=== PATIENT | female | born 1965 | race Hispanic/Latino ===

== ENCOUNTER 2017-08-08 09:24 | Emergency (ER) | payer SELFPAY ==
--- NOTE | 2017-08-08 11:16 | EDPHYS ---
Physician Documentation [facility] Name: Joanna Benavidez Age: 52 yrs Sex: Female : 1965 Arrival Date: 08/08/2017 Time: 09:27 Bed 23 Private MD: ED Physician Jas Marcelo HPI: 08/08 11:12 This 52 yrs old Female presents to ER via Ambulatory with complaints of gs Vaginal Bleeding. 11:12 The patient presents with vaginal bleeding that is moderate, with clots. Onset: The gs symptoms/episode began/occurred yesterday, AFTER SEXUAL ACTIVITY. Modifying factors: The symptoms are alleviated by nothing, the symptoms are aggravated by nothing. Associated signs and symptoms: Pertinent negatives: diarrhea, dyspareunia, dysuria. Severity of symptoms: At their worst the symptoms were moderate, in the emergency department the symptoms are unchanged. The patient has not experienced similar symptoms in the past. 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 ROS: 11:12 All other systems are negative. gs Exam: 11:12 Head/Face: Normocephalic, atraumatic. Eyes: Pupils equal round and reactive to light, gs extra-ocular motions intact. Lids and lashes normal. Conjunctiva and sclera are non-icteric and not injected. Cornea within normal limits. Periorbital areas with no swelling, redness, or edema. ENT: Nares patent. No nasal discharge, no septal abnormalities noted. Tympanic membranes are normal and external auditory canals are clear. Oropharynx with no redness, swelling, or masses, exudates, or evidence of obstruction, uvula midline. Mucous membranes moist. Neck: Trachea midline, no thyromegaly or masses palpated, and no cervical lymphadenopathy. Supple, full range of motion without nuchal rigidity, or vertebral point tenderness. No Meningismus. Chest/axilla: Normal chest wall appearance and motion. Nontender with no deformity. No lesions are appreciated. Cardiovascular: Regular rate and rhythm with a normal S1 and S2. No gallops, murmurs, or rubs. Normal PMI, no JVD. No pulse deficits. Respiratory: Lungs have equal breath sounds bilaterally, clear to auscultation and percussion. No rales, rhonchi or wheezes noted. No increased work of breathing, no retractions or nasal flaring. Abdomen/GI: Soft, non-tender, with normal bowel sounds. No distension or tympany. No guarding or rebound. No evidence of tenderness throughout. Back: No spinal tenderness. No costovertebral tenderness. Full range of motion. Skin: Warm, dry with normal turgor. Normal color with no rashes, no lesions, and no evidence of cellulitis. MS/ Extremity: Pulses equal, no cyanosis. Neurovascular intact. Full, normal range of motion. Neuro: Awake and alert, GCS 15, oriented to person, place, time, and situation. Cranial nerves II-XII grossly intact. Motor strength 5/5 in all extremities. Sensory grossly intact. Cerebellar exam normal. Normal gait. 11:12 Constitutional: The patient appears alert, awake. 11:12 : Pelvic Exam: External exam: is normal, Speculum exam: mild bleeding, FROM CERVIX, CLEANED ALL BLOOD NO LACERATION EVIDENCE OF TRAUMA, BLEEDING ONLY FROM OS. Vital Signs: 09:38 BP 108 / 72; Pulse 79; Resp 18; Temp 98.6(TE); Pulse Ox 99% on R/A; Weight 63.5 kg; hj Height 5 ft. 3 in. (160.02 cm); Pain 3/10; 11:56 BP 112 / 65; Pulse 68; Resp 18; Pulse Ox 99% ; aj1 09:38 Body Mass Index 24.80 (63.50 kg, 160.02 cm) MDM: 10:12 Patient medically screened. 11:12 Differential diagnosis: dysfunctional uterine bleeding, dysmenorrhea, Neoplasm. Data gs reviewed: vital signs, nurses notes. Response to treatment: the patient's symptoms have markedly improved after treatment, and as a result, I will discharge patient. 08/08 10:01 Order name: CBC w/o diff; Complete Time: 11:35 gs Administered Medications: No medications were administered Disposition: 08/08/17 11:16 Discharged to Home. Impression: Other abnormal uterine and vaginal bleeding. - Condition is Stable. - Discharge Instructions: Uterine Bleeding, Dysfunctional. - Work release form, Medication Reconciliation Form, Thank You Letter, Antibiotic Education, Prescription Opioid Use form. - Follow up: Brenda Leija MD; When: 2 - 3 days; Reason: Re-evaluation by your physician. Signatures: Dispatcher [employer] EDLennie Ortega RN RN aj1 Kelly Santiago RN RN iw Max Catherine RN RN Jas Marcelo MD MD Corrections: (The following items were deleted from the chart) 12:01 11:16 08/08/2017 11:16 Discharged to Home. Impression: Other abnormal uterine and aj1 vaginal bleeding. Condition is Stable. Forms are Medication Reconciliation Form, Thank You Letter, Antibiotic Education, Prescription Opioid Use. Follow up: Brenda Leija; When: 2 - 3 days; Reason: Re-evaluation by your physician. gs 12:19 12:01 08/08/2017 11:16 Discharged to Home. Impression: Other abnormal uterine and aj1 vaginal bleeding. Condition is Stable. Discharge Instructions: Uterine Bleeding, Dysfunctional. Forms are Medication Reconciliation Form, Thank You Letter, Antibiotic Education, Prescription Opioid Use, Work release form. Follow up: Brenda Leija; When: 2 - 3 days; Reason: Re-evaluation by your physician. aj1 12:22 12:19 08/08/2017 11:16 Discharged to Home. Impression: Other abnormal uterine and iw vaginal bleeding. Condition is Stable. Discharge Instructions: Uterine Bleeding, Dysfunctional. Forms are Medication Reconciliation Form, Thank You Letter, Antibiotic Education, Prescription Opioid Use, Work release form. Follow up: Brenda Leija; When: 2 - 3 days; Reason: Re-evaluation by your physician. aj1
--- NOTE | 2017-08-08 11:16 | ER ---
Nurse's Notes [facility] Name: Joanna Benavidez Age: 52 yrs Sex: Female : 1965 Arrival Date: 08/08/2017 Time: 09:27 Bed 23 Private MD: Diagnosis: Other abnormal uterine and vaginal bleeding Presentation: 08/08 09:34 Presenting complaint: Patient states: i ve been bleeding from my vagina since this hj morning; fresh blood in large amount; pads was soaked; denies fever and chills; reports abd discomfort;. Transition of care: patient was not received from another setting of care. Onset of symptoms was August 08, 2017. Initial Sepsis Screen: Does the patient meet any 2 criteria? No. Patient's initial sepsis screen is negative. Does the patient have a suspected source of infection? No. Patient's initial sepsis screen is negative. Care prior to arrival: None. 09:34 Method Of Arrival: Ambulatory 09:34 Acuity: FLORENTINO 3 hj Triage Assessment: 09:37 General: Appears in no apparent distress. uncomfortable, Behavior is calm, cooperative, hj appropriate for age. Pain: Complains of pain in pelvis Pain currently is 3 out of 10 on a pain scale. : Reports vaginal bleeding that is bright red, heavy flow since this AM;. 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 Screenin:00 Abuse screen: Denies threats or abuse. Denies injuries from another. Nutritional aj1 screening: No deficits noted. Tuberculosis screening: No symptoms or risk factors identified. Assessment: 09:38 : hj 10:00 General: Appears in no apparent distress. uncomfortable, Behavior is calm, cooperative, aj1 appropriate for age. Pain: Complains of pain in left inguinal area Pain does not radiate. Pain currently is 3 out of 10 on a pain scale. Neuro: Level of Consciousness is awake, alert, obeys commands, Oriented to person, place, time, situation, Speech is normal, Facial symmetry appears normal. Cardiovascular: Patient's skin is warm and dry. Respiratory: Airway is patent Respiratory effort is even, unlabored, Respiratory pattern is regular, symmetrical. GI: No signs and/or symptoms were reported involving the gastrointestinal system. : Reports vaginal bleeding that is bright red, heavy flow since last night. EENT: No signs and/or symptoms were reported regarding the EENT system. Derm: No signs and/or symptoms reported regarding the dermatologic system. Skin is pink, warm \T\ dry. normal. Musculoskeletal: No signs and/or symptoms reported regarding the musculoskeletal system. Circulation, motion, and sensation intact. 11:00 Reassessment: Patient appears in no apparent distress at this time. No changes from aj1 previously documented assessment. Patient and/or family updated on plan of care and expected duration. Pain level reassessed. Patient is alert, oriented x 3, equal unlabored respirations, skin warm/dry/pink. 11:56 Reassessment: Patient appears in no apparent distress at this time. No changes from aj1 previously documented assessment. Patient and/or family updated on plan of care and expected duration. Pain level reassessed. Patient is alert, oriented x 3, equal unlabored respirations, skin warm/dry/pink. Vital Signs: 09:38 BP 108 / 72; Pulse 79; Resp 18; Temp 98.6(TE); Pulse Ox 99% on R/A; Weight 63.5 kg; hj Height 5 ft. 3 in. (160.02 cm); Pain 3/10; 11:56 BP 112 / 65; Pulse 68; Resp 18; Pulse Ox 99% ; aj1 09:38 Body Mass Index 24.80 (63.50 kg, 160.02 cm) ED Course: 09:27 Patient arrived in ED. rg4 09:36 Triage completed. hj 09:37 Arm band placed on right wrist. hj 09:50 Lennie Pizarro, RN is Primary Nurse. aj1 10:00 Jas Marcelo MD is Attending Physician. gs 10:00 Patient has correct armband on for positive identification. Bed in low position. Call aj1 light in reach. Side rails up X 1. Pulse ox on. NIBP on. 10:00 No provider procedures requiring assistance completed. aj1 11:14 Assist provider with pelvic exam: Set up pelvic tray. Performed by Jas Marcelo MD aj1 Patient tolerated well. 11:14 Inserted saline lock: 20 gauge in right forearm, using aseptic technique. Blood aj1 collected. 11:16 Brenda Leija MD is Referral Physician. gs 11:56 IV discontinued, intact, bleeding controlled, No redness/swelling at site. Pressure aj1 dressing applied. Administered Medications: No medications were administered Outcome: 11:16 Discharge ordered by . gs 12:00 Discharged to home ambulatory. aj1 12:00 Condition: good 12:00 Discharge instructions given to patient, Instructed on discharge instructions, follow up and referral plans. Demonstrated understanding of instructions, follow-up care. 12:01 Patient left the ED. aj1 12:19 Patient left the ED. aj1 12:22 Patient left the ED. iw Signatures: Lennie Pizarro RN RN aj1 Kelly Santiago RN RN iw Max Catherine RN Yelena Horta rg4 Jas Marcelo MD MD Corrections: (The following items were deleted from the chart) 09:40 09:38 Pulse 79bpm; Resp 18bpm; Pulse Ox 99% RA; Temp 98.6F Temporal; 63.5 kg; Height 5 hj ft. 3 in.; BMI: 24.8; Pain 3/10; hj
[2017-08-08 11:24] LABS: MCH 30.1 pg (27.0-35.0); MCV 90.1 fL (80-100); MPV 8.6 fL (7.6-11.3); RBC Red Blood Cell Count 4.99 M/uL (3.86-4.86)
== END 2017-08-08 12:22 | disposition home or self-care (01) ==
LOC: ER 09:24
DX: N93.8 Other specified abnormal uterine and vaginal bleeding (principal); Z88.6 Allergy status to analgesic agent; Z88.8 Allergy status to other drugs, medicaments and biological substances
CPT/HCPCS: 36415; 85027; 99284

== ENCOUNTER 2017-08-08 20:16 | Emergency (ER) | payer SELFPAY ==
[2017-08-08 21:03] LABS: Hematocrit 43.5 % (36.0-45.0); MCH 30.7 pg (27.0-35.0); MCV 89.4 fL (80-100); MPV 8.4 fL (7.6-11.3); RBC Red Blood Cell Count 4.87 M/uL (3.86-4.86)
[2017-08-08 21:29] LABS: Urine Blood 3+ (NEG); Urine Glucose NEGATIVE (NEG); Urine Protein 2+ (NEG); Urine Specific Gravity 1.025 (1.005-1.030)
--- NOTE | 2017-08-08 23:14 | EDPHYS ---
Physician Documentation [facility] Name: Joanna Benavidez Age: 52 yrs Sex: Female : 1965 Arrival Date: 08/08/2017 Time: 20:21 Bed 4 Private MD: ED Physician Lazaro Watkins HPI: 08/08 20:37 This 52 yrs old Female presents to ER via Wheelchair with complaints of pkl Vaginal Bleeding. 20:37 Onset: The symptoms/episode began/occurred today. The patient has been recently seen at [facility] the [facility] Emergency Department, today, for similar complaints Was told to return if bleeding continue.. Historical: - Allergies: 20:25 Ibuprofen; bp 20:25 Vioxx; bp - Home Meds: 20:25 None [Active]; bp - PMHx: 20:25 None; bp - Immunization history:: Adult Immunizations up to date. - Social history:: Smoking status: Patient uses tobacco products, unknown amount. ROS: 20:37 Positive for vaginal bleeding. pkl 20:37 Eyes: Negative for injury, pain, redness, and discharge, ENT: Negative for injury, pain, and discharge, Neck: Negative for injury, pain, and swelling, Cardiovascular: Negative for chest pain, palpitations, and edema, Respiratory: Negative for shortness of breath, cough, wheezing, and pleuritic chest pain, Abdomen/GI: Negative for abdominal pain, nausea, vomiting, diarrhea, and constipation, Back: Negative for injury and pain. 20:37 MS/extremity: Negative for acute changes. 20:37 Skin: Negative for rash. 20:37 Neuro: Negative for altered mental status. Exam: 21:49 Head/Face: Normocephalic, atraumatic. Eyes: Pupils equal round and reactive to light, pkl extra-ocular motions intact. Lids and lashes normal. Conjunctiva and sclera are non-icteric and not injected. Cornea within normal limits. Periorbital areas with no swelling, redness, or edema. ENT: Nares patent. No nasal discharge, no septal abnormalities noted. Tympanic membranes are normal and external auditory canals are clear. Oropharynx with no redness, swelling, or masses, exudates, or evidence of obstruction, uvula midline. Mucous membranes moist. Neck: Trachea midline, no thyromegaly or masses palpated, and no cervical lymphadenopathy. Supple, full range of motion without nuchal rigidity, or vertebral point tenderness. No Meningismus. Chest/axilla: Normal chest wall appearance and motion. Nontender with no deformity. No lesions are appreciated. Cardiovascular: Regular rate and rhythm with a normal S1 and S2. No gallops, murmurs, or rubs. Normal PMI, no JVD. No pulse deficits. Respiratory: Lungs have equal breath sounds bilaterally, clear to auscultation and percussion. No rales, rhonchi or wheezes noted. No increased work of breathing, no retractions or nasal flaring. Abdomen/GI: Soft, non-tender, with normal bowel sounds. No distension or tympany. No guarding or rebound. No evidence of tenderness throughout. Back: No spinal tenderness. No costovertebral tenderness. Full range of motion. 21:49 : Pelvic Exam: bimanual exam reveals Mild vaginal bleeding. 21:49 Skin: Exam negative for rash. 21:49 Neuro: Orientation: is normal, Mentation: is normal, Cranial nerves: grossly normal, Motor: is normal. Vital Signs: 20:25 BP 109 / 61; Pulse 89; Resp 14; Temp 97.8; Pulse Ox 100% ; Weight 63.5 kg; Height 5 ft. bp 3 in. (160.02 cm); 21:30 BP 94 / 68; Pulse 84; Resp 18; Pulse Ox 97% on R/A; Pain 0/10; mg2 22:38 BP 95 / 59; Pulse 78; Resp 18; Pulse Ox 100% on R/A; Pain 0/10; mg2 23:21 BP 101 / 60; Pulse 72; Resp 16; Pulse Ox 100% on R/A; Pain 0/10; aa1 20:25 Body Mass Index 24.80 (63.50 kg, 160.02 cm) bp MDM: 20:22 Patient medically screened. pkl 23:12 Data reviewed: vital signs, nurses notes, lab test result(s), radiologic studies, pkl ultrasound. 08/08 20:37 Order name: CBC w/o diff; Complete Time: 21:37 pkl 08/08 21:06 Order name: Urine Dipstick--Ancillary (enter results); Complete Time: 21:29 rg2 08/08 21:06 Order name: Urine --Ancillary (enter results); Complete Time: 21:29 rg2 08/08 22:31 Order name: Transvaginal Study Probe EDMS Administered Medications: No medications were administered Disposition: 08/08/17 23:13 Discharged to Home. Impression: Vaginal bleeding. Uterine fibroid. Left ovarian cyst. - Condition is Stable. - Medication Reconciliation Form, Thank You Letter, Antibiotic Education, Prescription Opioid Use form. - Follow up: Private Physician; When: 2 - 3 days; Reason: Re-evaluation by your physician. - Problem is new. - Symptoms have improved. Signatures: Dispatcher [employer] EDCT Jessica Benton RN RN aa1 Lazaro Watkins MD MD pkl Jose D Espinoza RN RN bp Corrections: (The following items were deleted from the chart) 22:31 20:37 Pelvis Complete+US.RAD.TORIBIOZ ordered. EDCT EDMS 23:25 23:13 08/08/2017 23:13 Discharged to Home. Impression: Vaginal bleeding. Uterine aa1 fibroid. Left ovarian cyst. Condition is Stable. Forms are Medication Reconciliation Form, Thank You Letter, Antibiotic Education, Prescription Opioid Use. Follow up: Private Physician; When: 2 - 3 days; Reason: Re-evaluation by your physician. Problem is new. Symptoms have improved. pkl
--- NOTE | 2017-08-08 23:14 | ER ---
Nurse's Notes [facility] Name: Joanna Benavidez Age: 52 yrs Sex: Female : 1965 Arrival Date: 08/08/2017 Time: 20:21 Bed 4 Private MD: Diagnosis: Vaginal bleeding. Uterine fibroid. Left ovarian cyst Presentation: 08/08 20:24 Presenting complaint: Friend states: SHE WAS HERE EARLIER AND THEY TOLD HER TO COME bp BACK IF THE BLEEDING DIDN'T STOP. Transition of care: patient was not received from another setting of care. Onset of symptoms was August 07, 2017. Initial Sepsis Screen: Does the patient meet any 2 criteria? No. Patient's initial sepsis screen is negative. Does the patient have a suspected source of infection? No. Patient's initial sepsis screen is negative. Care prior to arrival: None. 20:24 Method Of Arrival: Wheelchair bp 20:24 Acuity: FLORENTINO 3 bp Triage Assessment: 20:25 General: Appears distressed, comfortable, Behavior is calm, cooperative, appropriate bp for age. Pain: Denies pain. : Reports vaginal bleeding that is with clots, heavy flow. Historical: - Allergies: 20:25 Ibuprofen; bp 20:25 Vioxx; bp - Home Meds: 20:25 None [Active]; bp - PMHx: 20:25 None; bp - Immunization history:: Adult Immunizations up to date. - Social history:: Smoking status: Patient uses tobacco products, unknown amount. Screenin:33 Abuse screen: Denies threats or abuse. Denies injuries from another. Nutritional mg2 screening: No deficits noted. Tuberculosis screening: No symptoms or risk factors identified. Fall Risk None identified. Assessment: 20:32 General: Appears in no apparent distress. comfortable. Pain: Denies pain. Neuro: Level mg2 of Consciousness is awake, alert, obeys commands, Oriented to person, place, time, situation. Cardiovascular: Capillary refill < 3 seconds Patient's skin is warm and dry. Respiratory: Airway is patent Respiratory effort is even, unlabored, Respiratory pattern is regular, symmetrical. GI: No signs and/or symptoms were reported involving the gastrointestinal system. : Reports vaginal bleeding that is with clots, since today but had it 10 days ago. EENT: No signs and/or symptoms were reported regarding the EENT system. Derm: Skin is intact, Skin is pink, warm \T\ dry. normal. Musculoskeletal: No signs and/or symptoms reported regarding the musculoskeletal system. Circulation, motion, and sensation intact. 21:30 Reassessment: Patient appears in no apparent distress at this time. Patient and/or aa1 family updated on plan of care and expected duration. Pain level reassessed. Patient is alert, oriented x 3, equal unlabored respirations, skin warm/dry/pink. Pt awaiting u/s. 22:30 Reassessment: Patient appears in no apparent distress at this time. Patient and/or aa1 family updated on plan of care and expected duration. Pain level reassessed. Patient is alert, oriented x 3, equal unlabored respirations, skin warm/dry/pink. Pt awaiting u/s results. 23:21 Reassessment: Patient appears in no apparent distress at this time. Patient is alert, aa1 oriented x 3, equal unlabored respirations, skin warm/dry/pink. Discussed d/c \T\ f/u instructions with pt \T\ family. Gave information to f/u with [facility] gynecology clinic. Patient denies pain at this time. Patient states feeling better. Vital Signs: 20:25 BP 109 / 61; Pulse 89; Resp 14; Temp 97.8; Pulse Ox 100% ; Weight 63.5 kg; Height 5 ft. bp 3 in. (160.02 cm); 21:30 BP 94 / 68; Pulse 84; Resp 18; Pulse Ox 97% on R/A; Pain 0/10; mg2 22:38 BP 95 / 59; Pulse 78; Resp 18; Pulse Ox 100% on R/A; Pain 0/10; mg2 23:21 BP 101 / 60; Pulse 72; Resp 16; Pulse Ox 100% on R/A; Pain 0/10; aa1 20:25 Body Mass Index 24.80 (63.50 kg, 160.02 cm) bp ED Course: 20:21 Patient arrived in ED. am2 20:22 Lazaro Barfield MD is Attending Physician. pkl 20:24 Triage completed. bp 20:25 Arm band placed on. bp 20:31 Taqueria Amador, TATUM is Primary Nurse. mg2 20:33 Patient has correct armband on for positive identification. Placed in gown. Bed in low mg2 position. Call light in reach. Side rails up X2. Noise minimized. Warm blanket given. 20:47 Urine collected: clean catch specimen, arron blood. aa1 20:51 Inserted saline lock: 20 gauge in left antecubital area, using aseptic technique. Blood mg2 collected. 21:25 Assist provider with pelvic exam: Set up pelvic tray. Performed by Lazaro Barfield MD Patient aa1 tolerated well. vaginal exam done by dr barfield. 22:31 Transvaginal Study Probe In Process Unspecified. EDMS 23:21 IV discontinued, intact, bleeding controlled, No redness/swelling at site. Pressure aa1 dressing applied. Administered Medications: No medications were administered Outcome: 23:13 Discharge ordered by . pkl 23:25 Discharged to home ambulatory, with family. aa1 23:25 Condition: good 23:25 Discharge instructions given to patient, family, Instructed on discharge instructions, follow up and referral plans. medication usage, Demonstrated understanding of instructions, follow-up care, medications, Prescriptions given X 1. 23:25 Patient left the ED. aa1 Signatures: Dispatcher [employer] EDMS Jessica Benton, RN RN aa1 Lazaro Barfield MD MD pkl Amira Esquivel am2 Jose D Espinoza, RN RN bp Taqueria Amador RN RN mg2 Corrections: (The following items were deleted from the chart) 20:34 20:31 Jessica Benton, TATUM is Primary Nurse. aa1 mg2 20:34 20:31 Primary Nurse role handed off by Jessica Benton RN mg2 mg2 21:34 21:30 BP 90 / 52; Pulse 84bpm; Resp 18bpm; Pulse Ox 97% RA; Pain 0/10; mg2 mg2 23:24 21:25 vaginal exam done by dr barfield mg2 aa1
--- NOTE | 2017-08-09 07:49 | RAD REPORT ---
EXAM DESCRIPTION: US - Transvaginal Study Probe - 08/08/2017 10:31 pm CLINICAL HISTORY: Vaginal bleeding and abdominal pain COMPARISON: none FINDINGS: The uterus measures 8 x 5 x 6cm. A fibroid is suspected within the myometrium of the uteru s fundus measuring 2 centimeters. A 3 centimeter left ovarian cyst is present. Flow within the left ovary is seen. The right ovary is n ormal in size and echotexture. No significant free fluid is seen. IMPRESSION: 3 centimeter left ovarian cyst 2 centimeter uterine fibroid Followup pelvic ultrasound in several months is recommended to assess stability/ resolution of the ov roslyn cyst
== END 2017-08-08 23:25 | disposition home or self-care (01) ==
LOC: ER 20:16
DX: D25.9 Leiomyoma of uterus, unspecified (principal); N83.202 Unspecified ovarian cyst, left side; Z72.0 Tobacco use; Z88.6 Allergy status to analgesic agent; Z88.8 Allergy status to other drugs, medicaments and biological substances
CPT/HCPCS: 36415; 76830; 81003; 81025; 85027; 99284

== ENCOUNTER 2017-11-20 09:13 | Day surgery (SDC) | payer SELFPAY ==
[2017-11-20] MEDS ORDERED: MORPHINE 4 MG/ML SYR ONE ×2 (11:48→13:22)
[2017-11-20] MEDS ORDERED: ONDANSETRON 4 MG/2 ML VIAL ONE ×3 (11:48→16:21)
[2017-11-20 11:57] LABS: Absolute Lymphocytes (CBC) 1.9 K/uL (0.7-4.9); Absolute Monocytes 0.8 K/uL (0.1-1.3); Absolute Neutrophil 10.9 K/uL (1.8-8.0); Basophils % 0.4 % (0-1.3); Eosinophils % 1.2 % (0-4.4); Hematocrit 42.5 % (36.0-45.0); Lymphocytes % 13.8 % (15.3-44.8); MCV 84.4 fL (80-100); MPV 8.4 fL (7.6-11.3); Monocytes % 5.6 % (3.3-12.3); RBC Red Blood Cell Count 5.04 M/uL (3.86-4.86)
[2017-11-20 12:07] LABS: Urine Amorphous Sediment 2+ /HPF (NONE SEEN); Urine Bacteria <20 /HPF (<20); Urine Culture Reflex Order NOT NEEDED; Urine Mucus 2+ /HPF (NONE SEEN); Urine RBC <5 /HPF (NONE SEEN)
[2017-11-20 12:08] LABS: Urine Blood NEGATIVE (NEG); Urine Glucose NEGATIVE (NEG); Urine Protein NEGATIVE (NEG); Urine Specific Gravity 1.025 (1.005-1.030)
[2017-11-20 12:28] LABS: ALT/SGPT 17 U/L (12-78); AST/SGOT 15 U/L (15-37); Albumin 3.4 g/dL (3.4-5.0); Alkaline Phosphatase 112 U/L (45-117); Amylase Level 58 U/L (25-115); BUN Blood Urea Nitrogen 15 mg/dL (7-18); Bicarbonate 28 mmol/L (21-32); Bilirubin Direct 0.1 mg/dL (0-0.2); Bilirubin Total 0.5 mg/dL (0.2-1.0); Glucose Level 93 mg/dL (74-106); Lipase 174 U/L (73-393); Potassium 3.7 mmol/L (3.5-5.1); Protein, Total 7.3 g/dL (6.4-8.2); Sodium Level 140 mmol/L (136-145)
--- NOTE | 2017-11-20 13:15 | RAD REPORT ---
EXAM DESCRIPTION: CTAbdomen Pelvis W Contrast - 11/20/2017 12:54 pm CLINICAL HISTORY: Abdominal pain. RLQ pain;Abd pain COMPARISON: No comparisons TECHNIQUE: Biphasic CT imaging of the abdomen and pelvis was performed with 100 ml non-ionic IV cont rast. All CT scans are performed using dose optimization technique as appropriate and may include automated exposure control or mA/KV adjustment according to patient size. FINDINGS: The lung bases are clear. The liver, spleen, pancreas, adrenal glands and kidneys are within normal limits. Small renal cortica l cysts are present. No bowel obstruction, free air, free fluid or abscess. The appendix is dilated to 17 mm compatible w ith acute appendicitis. No evidence of significant lymphadenopathy. No suspicious bony findings. IMPRESSION: Acute appendicitis.
--- NOTE | 2017-11-20 13:50 | ER ---
Nurse's Notes [facility] Name: Joanna Benavidez Age: 52 yrs Sex: Female : 1965 Arrival Date: 11/20/2017 Time: 09:16 Bed 14 Private MD: None, None Diagnosis: Acute appendicitis Presentation: 11/20 09:23 Presenting complaint: Patient states: around 0530 I got pain low in my pelvis. when I ch was last here I was dx with uterine fibroids and ovarian cysts. I have not followed up with a pcp. It hurts so badly that I want to puke. Transition of care: patient was not received from another setting of care. Onset of symptoms was November 20, 2017 at 05:30. Risk Assessment: Do you want to hurt yourself or someone else? Patient reports no desire to harm self or others. Initial Sepsis Screen: Does the patient meet any 2 criteria? No. Patient's initial sepsis screen is negative. Does the patient have a suspected source of infection? No. Patient's initial sepsis screen is negative. Care prior to arrival: None. 09:23 Method Of Arrival: Ambulatory 09:23 Acuity: FLORENTINO 3 Triage Assessment: 09:25 General: Appears in no apparent distress. uncomfortable, Behavior is calm, cooperative, ch appropriate for age. Pain: Complains of pain in suprapubic area and pelvis Pain currently is 8 out of 10 on a pain scale. GI: Reports lower abdominal pain. 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 - Social history:: Smoking status: Patient uses tobacco products, smokes one-half pack cigarettes per day, Patient/guardian denies using alcohol, street drugs. - Ebola Screening: : Patient negative for fever greater than or equal to 101.5 degrees Fahrenheit, and additional compatible Ebola Virus Disease symptoms Patient denies exposure to infectious person Patient denies travel to an Ebola-affected area in the 21 days before illness onset No symptoms or risks identified at this time. Screenin:49 Abuse screen: Denies threats or abuse. Denies injuries from another. Nutritional hb screening: No deficits noted. Tuberculosis screening: No symptoms or risk factors identified. Fall Risk None identified. Assessment: 10:30 General: Appears in no apparent distress. uncomfortable, Behavior is calm, cooperative. hb Pain: Pain currently is 8 out of 10 on a pain scale. Neuro: Level of Consciousness is awake, alert, obeys commands, Oriented to person, place, time, situation. Cardiovascular: Heart tones S1 S2 present Capillary refill < 3 seconds Patient's skin is warm and dry. Respiratory: Airway is patent Trachea midline Respiratory effort is even, unlabored, Respiratory pattern is regular, symmetrical, Breath sounds are clear bilaterally. GI: Abdomen is flat, Bowel sounds present X 4 quads. Abd is soft and non tender X 4 quads. Reports lower abdominal pain, upper abdominal pain. : No signs and/or symptoms were reported regarding the genitourinary system. EENT: No signs and/or symptoms were reported regarding the EENT system. Derm: No signs and/or symptoms reported regarding the dermatologic system. Skin is intact, is healthy with good turgor. Musculoskeletal: No signs and/or symptoms reported regarding the musculoskeletal system. 11:30 Reassessment: Patient appears in no apparent distress at this time. No changes from previously documented assessment. Patient and/or family updated on plan of care and expected duration. Pain level reassessed. Patient is alert, oriented x 3, equal unlabored respirations, skin warm/dry/pink. 12:16 Reassessment: Patient appears in no apparent distress at this time. Patient and/or hb family updated on plan of care and expected duration. Pain level reassessed. Patient is alert, oriented x 3, equal unlabored respirations, skin warm/dry/pink. 12:44 Reassessment: Pt transported to CT with tech. 13:02 Reassessment: Pt returned from CT via wheelchair with tech. 13:15 Reassessment: Patient appears in no apparent distress at this time. Patient and/or hb family updated on plan of care and expected duration. Pain level reassessed. Patient is alert, oriented x 3, equal unlabored respirations, skin warm/dry/pink. 14:00 Reassessment: Patient appears in no apparent distress at this time. Patient and/or hb family updated on plan of care and expected duration. Pain level reassessed. Patient is alert, oriented x 3, equal unlabored respirations, skin warm/dry/pink. 14:05 Reassessment: Dr. Stahl at bedside. hb Vital Signs: 09:25 BP 120 / 47; Pulse 68; Resp 15; Temp 98.3; Pulse Ox 100% on R/A; Weight 63.5 kg; Height ch 5 ft. 3 in. (160.02 cm); Pain 8/10; 10:30 BP 122 / 65; Pulse 60; Resp 15; Pulse Ox 100% on R/A; hb 11:30 BP 126 / 78; Pulse 70; Resp 15; Pulse Ox 100% on R/A; hb 12:00 BP 120 / 66; Pulse 52; Resp 15; Pulse Ox 97% on R/A; Pain 5/10; cc3 13:00 BP 118 / 68; Pulse 55; Resp 15; Pulse Ox 100% on R/A; hb 14:00 BP 112 / 57; Pulse 52; Resp 15; Temp 98.2; Pulse Ox 100% on R/A; Pain 8/10; hb 09:25 Body Mass Index 24.80 (63.50 kg, 160.02 cm) ED Course: 09:16 Patient arrived in ED. sb2 09:16 None, None is Private Physician. sb2 09:24 Triage completed. ch 09:25 Arm band placed on left wrist. Patient placed in an exam room, on a stretcher. ch 09:55 Tamara Mae RN is Primary Nurse. hb 10:00 Loc Medrano MD is Attending Physician. kdr 11:49 Patient has correct armband on for positive identification. Placed in gown. Bed in low hb position. Call light in reach. Side rails up X 1. 11:49 Inserted saline lock: 20 gauge in right antecubital area, using aseptic technique. hb ,using aseptic technique. by Lucia WINN Blood collected. 12:[address] via wheelchair. sj 12:50 CT completed. Patient tolerated procedure well. Patient moved back from CT. sj 12:55 CT Abd/Pelvis - W/Contrast In Process Unspecified. EDMS 13:49 Jon Stahl MD is Hospitalizing Provider. kdr 14:05 Surgical consent explained by physician. hb 14:38 No provider procedures requiring assistance completed. Patient admitted, IV remains in hb place. Administered Medications: 11:47 Drug: morphine 4 mg Route: IVP; Site: right antecubital; hb 12:00 Follow up: Response: No adverse reaction cc3 11:47 Drug: Zofran 4 mg Route: IVP; Site: right antecubital; hb 12:00 Follow up: Response: No adverse reaction cc3 13:20 Drug: Zofran 4 mg Route: IVP; Site: right antecubital; cc3 14:00 Follow up: Response: No adverse reaction cc3 13:25 Drug: morphine 4 mg Route: IVP; Site: right antecubital; cc3 14:00 Follow up: Response: No adverse reaction cc3 14:00 Drug: Flagyl 500 mg Volume: 100 ml; Route: IVPB; Rate: 200 ml/hr; Infused Over: 30 ss mins; Site: right antecubital; 14:00 Drug: LevaQUIN 500 mg Volume: 100 ml; Route: IVPB; Infused Over: 60 mins; Site: left ss antecubital; Outcome: 13:49 Decision to Hospitalize by Provider. kdr 14:38 Admitted to OR accompanied by nurse, family with patient, via stretcher, with chart. hb 14:38 Condition: stable 14:38 Instructed on the need for admit, Demonstrated understanding of instructions. 14:39 Patient left the ED. Signatures: Dispatcher [employer] EDMindy Guerrero, TATUM WINN Loc Medrano MD MD kdr Jones, Susan sj Smirch, Shelby, RN RN Tamara Mae RN RN Nae Mcclain sb2 Lucia Luke cc3
--- NOTE | 2017-11-20 13:50 | EDPHYS ---
Physician Documentation [facility] Name: Joanna Benavidez Age: 52 yrs Sex: Female : 1965 Arrival Date: 11/20/2017 Time: 09:16 Bed 14 Private MD: None, None ED Physician Loc Medrano HPI: 11/20 17:35 This 52 yrs old Female presents to ER via Ambulatory with complaints of kdr Abdominal Pain. 17:35 The patient presents with abdominal pain right lower quadrant. Onset: The kdr symptoms/episode began/occurred suddenly, at 05:30. The symptoms do not radiate. Associated signs and symptoms: Pertinent positives: nausea. The symptoms are described as achy, sharp, steady. Modifying factors: The symptoms are alleviated by nothing, the symptoms are aggravated by movement, walking. Severity of pain: At its worst the pain was moderate in the emergency department the pain is unchanged. The patient has not experienced similar symptoms in the past, Similar s/s a few months ago but told she had fibroids at that time.. The patient has not recently seen a physician. 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 - Social history:: Smoking status: Patient uses tobacco products, smokes one-half pack cigarettes per day, Patient/guardian denies using alcohol, street drugs. - Ebola Screening: : Patient negative for fever greater than or equal to 101.5 degrees Fahrenheit, and additional compatible Ebola Virus Disease symptoms Patient denies exposure to infectious person Patient denies travel to an Ebola-affected area in the 21 days before illness onset No symptoms or risks identified at this time. ROS: 17:35 Constitutional: Negative for fever, chills, and weight loss, Eyes: Negative for injury, kdr pain, redness, and discharge, Neck: Negative for injury, pain, and swelling, Cardiovascular: Negative for chest pain, palpitations, and edema, Respiratory: Negative for shortness of breath, cough, wheezing, and pleuritic chest pain, Back: Negative for injury and pain, : Negative for injury, bleeding, discharge, and swelling, MS/Extremity: Negative for injury and deformity, Skin: Negative for injury, rash, and discoloration, Neuro: Negative for headache, weakness, numbness, tingling, and seizure activity. Psych: Negative for depression, anxiety, suicide ideation, homicidal ideation, and hallucinations, Allergy/Immunology: Negative for hives, rash, and allergies, Endocrine: Negative for neck swelling, polydipsia, polyuria, polyphagia, and marked weight changes, Hematologic/Lymphatic: Negative for swollen nodes, abnormal bleeding, and unusual bruising. 17:35 Abdomen/GI: Positive for abdominal pain, Negative for nausea, diarrhea, constipation, abdominal cramps, abdominal distension, anorexia, dysphagia, hematemesis, black/tarry stool, rectal pain, rectal bleeding, bowel incontinence. Exam: 17:35 Constitutional: This is a well developed, well nourished patient who is awake, alert, kdr and in no acute distress. Head/Face: Normocephalic, atraumatic. Eyes: Pupils equal round and reactive to light, extra-ocular motions intact. Lids and lashes normal. Conjunctiva and sclera are non-icteric and not injected. Cornea within normal limits. Periorbital areas with no swelling, redness, or edema. Neck: Trachea midline, no thyromegaly or masses palpated, and no cervical lymphadenopathy. Supple, full range of motion without nuchal rigidity, or vertebral point tenderness. No Meningismus. Chest/axilla: Normal chest wall appearance and motion. Nontender with no deformity. No lesions are appreciated. Cardiovascular: Regular rate and rhythm with a normal S1 and S2. No gallops, murmurs, or rubs. Normal PMI, no JVD. No pulse deficits. Respiratory: Lungs have equal breath sounds bilaterally, clear to auscultation and percussion. No rales, rhonchi or wheezes noted. No increased work of breathing, no retractions or nasal flaring. Back: No spinal tenderness. No costovertebral tenderness. Full range of motion. Skin: Warm, dry with normal turgor. Normal color with no rashes, no lesions, and no evidence of cellulitis. MS/ Extremity: Pulses equal, no cyanosis. Neurovascular intact. Full, normal range of motion. Neuro: Awake and alert, GCS 15, oriented to person, place, time, and situation. Cranial nerves II-XII grossly intact. Motor strength 5/5 in all extremities. Sensory grossly intact. Cerebellar exam normal. Normal gait. Psych: Awake, alert, with orientation to person, place and time. Behavior, mood, and affect are within normal limits. 17:35 Abdomen/GI: Inspection: abdomen appears normal, Bowel sounds: active, diminished, in all quadrants, Palpation: soft, mild abdominal tenderness, in the right lower quadrant, mass, is not appreciated, rebound tenderness, is not appreciated, voluntary guarding, is elicited in the right lower quadrant. Vital Signs: 09:25 BP 120 / 47; Pulse 68; Resp 15; Temp 98.3; Pulse Ox 100% on R/A; Weight 63.5 kg; Height ch 5 ft. 3 in. (160.02 cm); Pain 8/10; 10:30 BP 122 / 65; Pulse 60; Resp 15; Pulse Ox 100% on R/A; hb 11:30 BP 126 / 78; Pulse 70; Resp 15; Pulse Ox 100% on R/A; hb 12:00 BP 120 / 66; Pulse 52; Resp 15; Pulse Ox 97% on R/A; Pain 5/10; cc3 13:00 BP 118 / 68; Pulse 55; Resp 15; Pulse Ox 100% on R/A; hb 14:00 BP 112 / 57; Pulse 52; Resp 15; Temp 98.2; Pulse Ox 100% on R/A; Pain 8/10; hb 09:25 Body Mass Index 24.80 (63.50 kg, 160.02 cm) MDM: 13:49 Patient medically screened. kdr 17:35 Data reviewed: vital signs, nurses notes, lab test result(s), radiologic studies. kdr Counseling: I had a detailed discussion with the patient and/or guardian regarding: the historical points, exam findings, and any diagnostic results supporting the discharge/admit diagnosis, lab results, radiology results, the need for further work-up and treatment in the hospital. Physician consultation: Jon Stahl MD. Admission orders: after a detailed discussion of the patient's condition and case, the admit orders are written by me. Special discussion:. 11/20 11:36 Order name: Amylase, Serum; Complete Time: 12:37 hb 11/20 11:36 Order name: Basic Metabolic Panel; Complete Time: 12:37 hb 11/20 11:36 Order name: CBC with Diff; Complete Time: 12:37 hb 11/20 11:36 Order name: Creatinine for Radiology; Complete Time: 12:37 hb 11/20 11:36 Order name: Hepatic Function; Complete Time: 12:37 hb 11/20 11:36 Order name: Lipase; Complete Time: 12:37 hb 11/20 11:36 Order name: Urine Microscopic Only; Complete Time: 12:37 hb 11/20 11:36 Order name: Basic Metabolic Panel kdr 11/20 11:36 Order name: CBC with Diff kdr 11/20 11:36 Order name: Creatinine for Radiology kdr 11/20 11:36 Order name: Hepatic Function kdr 11/20 11:36 Order name: Lipase kdr 11/20 11:36 Order name: Urine Microscopic Only kdr 11/20 11:49 Order name: Urine Dipstick--Ancillary (enter results); Complete Time: 12:37 bd 11/20 11:36 Order name: IV Saline Lock; Complete Time: 11:47 hb 11/20 11:36 Order name: Labs collected and sent; Complete Time: 11:47 hb 11/20 11:36 Order name: Urine Dipstick-Ancillary (obtain specimen); Complete Time: 11:47 hb 11/20 11:36 Order name: IV Saline Lock; Complete Time: 11:42 kdr 11/20 11:36 Order name: Labs collected and sent; Complete Time: 11:47 kdr 11/20 11:36 Order name: Urine Dipstick-Ancillary (obtain specimen); Complete Time: 11:47 kdr 11/20 11:36 Order name: CT Abd/Pelvis - W/Contrast; Complete Time: 13:44 kdr 11/20 11:49 Order name: Urine --Ancillary (enter results); Complete Time: 12:37 bd Administered Medications: 11:47 Drug: morphine 4 mg Route: IVP; Site: right antecubital; hb 12:00 Follow up: Response: No adverse reaction cc3 11:47 Drug: Zofran 4 mg Route: IVP; Site: right antecubital; hb 12:00 Follow up: Response: No adverse reaction cc3 13:20 Drug: Zofran 4 mg Route: IVP; Site: right antecubital; cc3 14:00 Follow up: Response: No adverse reaction cc3 13:25 Drug: morphine 4 mg Route: IVP; Site: right antecubital; cc3 14:00 Follow up: Response: No adverse reaction cc3 14:00 Drug: Flagyl 500 mg Volume: 100 ml; Route: IVPB; Rate: 200 ml/hr; Infused Over: 30 ss mins; Site: right antecubital; 14:00 Drug: LevaQUIN 500 mg Volume: 100 ml; Route: IVPB; Infused Over: 60 mins; Site: left ss antecubital; Disposition: 11/20/17 13:49 Hospitalization ordered by Jon Stahl for Observation. Preliminary diagnosis is Acute appendicitis. - Bed requested for Telemetry/MedSurg (observation). - Status is Observation. hb - Condition is Fair. - Problem is new. - Symptoms are unchanged. UTI on Admission? No Signatures: Dispatcher [employer] EDKS Mindy Garza, RN RN Maxime Stark MD MD cha Rittger, Kevin, MD MD kdr Smirch, Shelby, RN RN Tamara Mae RN RN Lucia Lkue cc3 Corrections: (The following items were deleted from the chart) 11:38 11:36 Abdomen Pelvis W Con+CT.RAD.BRZ ordered. EDKS EDKS 14:39 13:49 Hospitalization Ordered by Jon Stahl MD for Observation. Preliminary diagnosis hb is Acute appendicitis. Bed requested for Telemetry/MedSurg (observation). Status is Observation. Condition is Fair. Problem is new. Symptoms are unchanged. UTI on Admission? No. kdr
[2017-11-20] MEDS ORDERED: BUPIVACA 0.25%/EPI 0.0005% MDV 50 ML VIAL ONE (14:22)
[2017-11-20] MEDS ORDERED: METRONIDAZOLE 500mg IVPB 500 MG/100 ML BAG IV ONE (14:30)
[2017-11-20] MEDS ORDERED: Levofloxacin500mg IV 500 MG/100 ML BAG IV ONE (14:30)
[2017-11-20] MEDS ORDERED: Ringers Lactate 1,000 ML IV ONE ×2 (14:45→16:37)
[2017-11-20] MEDS ORDERED: SUCCINYLCHOLINE 20 MG/ML (10 ML) IV ONE (15:01)
[2017-11-20] MEDS ORDERED: PROPOFOL 200 MG/20 ML VIAL IV ONE (15:04)
[2017-11-20] MEDS ORDERED: ROCURONIUM 50 MG/5 ML VIAL IV ONE (15:04)
[2017-11-20] MEDS ORDERED: MIDAZOLAM HCL 2 MG/2 ML INJ ONE (15:04)
[2017-11-20] MEDS ORDERED: FENTANYL CITR 100 MCG/2 ML ONE (15:04)
[2017-11-20] MEDS ORDERED: ONDANSETRON HCL 40 MG/20 ML VIAL ONE (15:53)
[2017-11-20] MEDS ORDERED: GLYCOPYRROLATE 0.2 MG/ML SYR ONE (15:54)
[2017-11-20] MEDS ORDERED: NEOSTIGMINE 1 MG/ML -5 ML SYRINGE ONE (15:54)
--- NOTE | 2017-11-20 15:58 | P.BOP ---
Preoperative diagnosis: Acute Non-Perforated Appendicitis Postoperative diagnosis: Acute Non-Perforated Appendicitis Primary procedure: Laparoscopic Appendectomy Manager Relocation: Chrissie Byrd Estimated blood loss: <10cc Specimen: Vermiform Appendix Anesthesia: General Complications: None Transferred to: Recovery Room Condition: Good
[2017-11-20] MEDS: MEPERIDINE HCL 50 MG/ML AMP ONE ×3 (16:06→16:23)
[2017-11-20] MEDS ORDERED: HYDROCODONE/APAP 5/325 MG TAB ONE (17:33)
[2017-11-20] MEDS ORDERED: HYDROCODONE/APAP 7.5/325 MG TAB ONE (17:57)
--- NOTE | 2017-11-21 01:47 | HP ---
Date of Admission: 11/20/2017 Brief History Of Present Illness: The patient is a 52-year-old female who presents to the [facility] with abdominal pain beginning in the periumbilical, now right lower quadrant, beginning appro ximately 5 o'clock this morning. The pain got progressively worse over the course of the day and is now localized to the right lower quadrant. It is severe, stabbing, sharp, and without improvement. She has had some nausea, some subjective fever and chills. No change in bowel or bladder habits. No recent food exposures. She works at [employer]. Past Medical History: Significant for diabetes, which she states she had significant weight loss and she is now prediabetic. Past Surgical History: She has had a tubal ligation and wisdom teeth surgery. Allergies: TO IBUPROFEN AND ROFECOXIB. Home Medications: None. Social History: She has a 7+ pack year history of smoking. Denies alcohol or recreational drug use. She works at [employer] as described above. She has a boyfriend. Review of Systems: A 10-point review of systems other than HPI, denies. Physical Examination: General: At the time of my examination, she is awake, alert, and oriented. Psychiatric: She is appropriate and conversive. HEENT: She is normocephalic. Sclerae anicteric. Mucous membranes are moist. Oropharynx clear. Neck: Supple. No JVD. Chest: Normal expansion and excursion. Cardiovascular: Regular rate and rhythm. Pulmonary: Clear to auscultation bilaterally. Abdomen: Soft with positive focal peritonitis in the right lower quadrant at McBurney's point. Posi tive rebound. Positive guarding. Positive suprapubic tenderness. She has a minimally positive psoa s sign. Extremities: No clubbing, cyanosis, or edema. Skin: Warm and dry. Laboratory Data: Reveals a white blood cell count of 13.9, hemoglobin is 14.10, hematocrit 42.5, lina telet count is 230. Chemistry shows a sodium of 140, potassium 3.7, chloride 107, carbon dioxide 28, BUN 15, creatinine 0.5, glucose is 93, calcium was 8.7, total bilirubin 0.5, AST 15, ALT 17, alkalin e phosphatase was 112, lipase 174. UA was essentially negative with the exception of squamous cells and 2+ sediment. Her urine test was negative. She had a CT scan performed of the abdomen and pelvis, officially read as evidence of acute appendicitis. Specifically, the appendix was dilate d to 17 mm compatible with acute appendicitis. There is no significant lymphadenopathy in the area. Assessment And Plan: This is a 52-year-old female who comes in with signs and symptoms and confirmat ion of acute appendicitis. 1.IV fluid hydration. 2.Antibiotic coverage. 3.I have explained the risks, benefits, and alternatives of laparoscopic, possible open appendectomy including, but not limited to bleeding, infection, damage to surrounding tissue, need for further op erating procedures. She agrees to proceed as indicated. YUNIOR/IRENE Voice ID: [id number]
--- NOTE | 2017-11-21 03:14 | OP ---
Date of Procedure: 11/20/2017 Surgeon: Jon Stahl MD, Scientific Database Curator: Chrissie Byrd. Preoperative Diagnosis: Acute nonperforated appendicitis. Postoperative Diagnosis: Acute nonperforated appendicitis. Procedure Performed: Laparoscopic appendectomy. Estimated Blood Loss: Less than 10 cc. Specimen: Vermiform appendix. Anesthesia: General endotracheal plus local with 0.25% Marcaine. Complications: None. Disposition: Transferred to recovery room in good condition. Procedure In Detail: After informed consent was obtained, the patient was brought to the operating r oom, prepped and draped in the usual sterile fashion. After adequate anesthesia was achieved, an inf raumbilical area was anesthetized with 0.25% Marcaine, sharply incised, a 5-mm trocar was introduced into the abdomen without evidence of complication. Insufflation was obtained to 15 mmHg at this time . There was no injury to the abdomen or vital structures upon entry into the abdomen. Additional tr ocar site was chosen in the suprapubic region. This was similarly anesthetized and sharply incised. A 5-mm trocar was introduced into the abdomen without evidence of complication. The umbilical troca r was then up-sized to 12 mm under direct visualization without evidence of complication. A left low er quadrant incision was made allowing for entry of another 5 mm trocar, allowing for 3 total trocars to be placed. The patient was positioned in head down, right side up position. Ratcheted grasper w as used to grasp the appendix, it was found to be grossly inflamed extending from the tip all the way down to the confluence of the cecum. The mesoappendiceal window was created with a [place] retract or. An Endo MARY 35 blue load was fired across the base of the appendix with good approximation of th e tissues. The LigaSure device was then used to take the mesoappendix down. The appendix was placed in the EndoCatch bag and removed through the umbilical trocar. Re-insufflation was obtained at this time. There was found to be a small area of additional base of the appendix, which I decided to rese ct as well, so grasping and elevating this, an Endo MARY 35 blue load was fired across the base of the appendix with good approximation against the confluence of the cecum. This was also placed in the E ndoCatch bag and removed through the umbilical trocar for a more proximal specimen. The area was the n inspected. Proper hemostasis was achieved. After re-insufflation was obtained, the area was copio usly irrigated multiple times and cleared and suctioned until completely clear. The staple line was found to be in good anatomic position without any leakage. There was no bleeding at the end of proce dure. The patient was positioned in neutral position and the umbilical trocar was removed. The umbi lical trocar site was closed with Donavna-Ashvin suture passer using 0 Vicryl in interrupted fashion with good approximation of tissues. The abdomen was then completely desufflated under direct visual ization without evidence of complication. All trocars then removed. All skin incisions were copious ly irrigated and closed with a 4-0 Monocryl in a running fashion. Dermabond was placed over top. The patient tolerated the procedure without evidence of complication, transferred to PACU in good condit ion. All counts were correct at the end of the case. YUNIOR/IRENE Voice ID: [id number] Report ID: [id number]
== END 2017-11-20 18:46 | disposition home or self-care (01) ==
LOC: ER 09:13 → OR 14:30
PROVIDERS: ATTEND Surgery
PROC: 0DTJ4ZZ Resection of Appendix, Percutaneous Endoscopic Approach (ICD-10-PCS; principal; 2017-11-20 14:00)
DX: K35.89 Other acute appendicitis (principal); R73.03 Prediabetes; F17.210 Nicotine dependence, cigarettes, uncomplicated
CPT/HCPCS: 36415; 74177; 80048; 80076; 81003; 81015; 81025; 82150; 83690; 85025; 88304; 99285; J0330; J2175; J2250; J2405; J2710; J3010; Q9967

== ENCOUNTER 2018-03-29 21:02 | Emergency (ER) | payer BC, SELFPAY ==
--- NOTE | 2018-03-30 00:11 | EDPHYS ---
Physician Documentation [facility] Name: oJanna Benavidez Age: 53 yrs Sex: Female : 1965 Arrival Date: 03/29/2018 Time: 21:09 Bed 13 Private MD: ED Physician Gianluca Fong HPI: 03/29 23:00 This 53 yrs old Female presents to ER via Ambulatory with complaints of Flu pm1 like symptoms. 23:00 The patient or guardian reports cough, flu symptoms, myalgias. Onset: The pm1 symptoms/episode began/occurred 4 day(s) ago. Severity of symptoms: in the emergency department the symptoms are actually worse. Modifying factors: The symptoms are alleviated by nothing, the symptoms are aggravated by nothing. Associated signs and symptoms: Pertinent positives: earache, sore throat, Cough, body aches, Pertinent negatives: chest pain, diarrhea, fever, vomiting. The patient has not experienced similar symptoms in the past. The patient has not recently seen a physician. 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 - Social history:: Smoking status: Patient/guardian denies using tobacco. - Ebola Screening: : Patient denies travel to an Ebola-affected area in the 21 days before illness onset. ROS: 23:00 Eyes: Negative for injury, pain, redness, and discharge. pm1 23:00 Neck: Negative for injury, pain, and swelling, Cardiovascular: Negative for chest pain, palpitations, and edema. 23:00 Abdomen/GI: Negative for abdominal pain, nausea, vomiting, diarrhea, and constipation, Back: Negative for injury and pain, : Negative for injury, bleeding, discharge, and swelling, MS/Extremity: Negative for injury and deformity, Skin: Negative for injury, rash, and discoloration, Neuro: Negative for headache, weakness, numbness, tingling, and seizure. 23:00 Constitutional: Positive for body aches, poor PO intake. 23:00 ENT: Positive for ear pain, sore throat, Negative for drainage from ear(s), difficulty swallowing, difficulty handling secretions, hoarseness. 23:00 Respiratory: Positive for cough, Negative for shortness of breath, sputum production, wheezing. Exam: 23:00 Constitutional: This is a well developed, well nourished patient who is awake, alert, pm1 and in no acute distress. Head/Face: Normocephalic, atraumatic. Eyes: Pupils equal round and reactive to light, extra-ocular motions intact. Lids and lashes normal. Conjunctiva and sclera are non-icteric and not injected. Cornea within normal limits. Periorbital areas with no swelling, redness, or edema. ENT: Nares patent. No nasal discharge, no septal abnormalities noted. Tympanic membranes are normal and external auditory canals are clear. Oropharynx with no redness, swelling, or masses, exudates, or evidence of obstruction, uvula midline. Mucous membranes moist. Neck: Trachea midline, no thyromegaly or masses palpated, and no cervical lymphadenopathy. Supple, full range of motion without nuchal rigidity, or vertebral point tenderness. No Meningismus. Chest/axilla: Normal chest wall appearance and motion. Nontender with no deformity. No lesions are appreciated. Cardiovascular: Regular rate and rhythm with a normal S1 and S2. No gallops, murmurs, or rubs. Normal PMI, no JVD. No pulse deficits. Respiratory: Lungs have equal breath sounds bilaterally, clear to auscultation and percussion. No rales, rhonchi or wheezes noted. No increased work of breathing, no retractions or nasal flaring. Abdomen/GI: Soft, non-tender, with normal bowel sounds. No distension or tympany. No guarding or rebound. No evidence of tenderness throughout. Back: No spinal tenderness. No costovertebral tenderness. Full range of motion. Skin: Warm, dry with normal turgor. Normal color with no rashes, no lesions, and no evidence of cellulitis. MS/ Extremity: Pulses equal, no cyanosis. Neurovascular intact. Full, normal range of motion. 23:00 Neuro: Orientation: is normal, Motor: is normal, moves all fours, Gait: is steady, at a normal pace, without difficulty. Vital Signs: 21:13 BP 117 / 69; Pulse 74; Resp 18; Temp 99.0; Pulse Ox 99% on R/A; Weight 64.86 kg (R); aj1 Height 5 ft. 3 in. (160.02 cm); 22:00 BP 121 / 71; Pulse 71; Resp 18; Pulse Ox 98% ; rr5 23:00 BP 125 / 75; Pulse 80; Resp 19; Pulse Ox 99% ; rr5 03/30 00:00 BP 121 / 71; Pulse 81; Resp 18; Pulse Ox 99% ; rr5 03/29 21:13 Body Mass Index 25.33 (64.86 kg, 160.02 cm) aj1 MDM: 03/29 21:35 Patient medically screened. pm1 21:42 ED course: Patient requested to take phone call prior to evaluation. pm1 22:36 Data reviewed: vital signs. Data interpreted: Pulse oximetry: on room air is 99 %. pm1 Interpretation: normal. 03/30 00:08 Counseling: I had a detailed discussion with the patient and/or guardian regarding: the pm1 historical points, exam findings, and any diagnostic results supporting the discharge/admit diagnosis, lab results, radiology results, the need for outpatient follow up, to return to the emergency department if symptoms worsen or persist or if there are any questions or concerns that arise at home. 03/29 22:37 Order name: Flu; Complete Time: 23:46 pm1 03/29 22:37 Order name: Strep; Complete Time: 23:46 pm1 03/29 22:37 Order name: Chest Pa And Lat (2 Views) XRAY pm1 03/29 23:32 Order name: Throat Culture EDMS Administered Medications: 00:30 Drug: Tussionex Pennkinetic ER 5 ml Route: PO; rr5 00:47 Follow up: Response: Medication administered at discharge. rr5 Disposition: 05:32 Co-signature as Attending Physician, Gianluca Fong MD I agree with the assessment and tw4 plan of care. Disposition: 03/30/18 00:10 Discharged to Home. Impression: Acute upper respiratory infection, unspecified. - Condition is Stable. - Discharge Instructions: Upper Respiratory Infection, Adult, Viral Respiratory Infection. - Prescriptions for Guaifenesin AC 10- 100 mg/5 mL Oral Liquid - take 10 milliliter by ORAL route every 4 hours As needed; 240 milliliter. - Medication Reconciliation Form, Thank You Letter, Prescription Opioid Use, Work release form form. - Follow up: Emergency Department; When: As needed; Reason: Worsening of condition. Follow up: Private Physician; When: 2 - 3 days; Reason: Recheck today's complaints, Continuance of care, Re-evaluation by your physician. - Problem is new. - Symptoms have improved. Signatures: Dispatcher [employer] EDMS Lennie Pizarro RN RN aj1 Hernan Simpson CLIENT SUPPORT REPRESENTATIVE CLIENT SUPPORT REPRESENTATIVE pm1 Gianluca Fong MD MD tw4 Misael Yu RN RN rr5 Corrections: (The following items were deleted from the chart) 00:48 00:10 03/30/2018 00:10 Discharged to Home. Impression: Acute upper respiratory rr5 infection, unspecified. Condition is Stable. Forms are Medication Reconciliation Form, Thank You Letter, Antibiotic Education, Prescription Opioid Use. Follow up: Emergency Department; When: As needed; Reason: Worsening of condition. Follow up: Private Physician; When: 2 - 3 days; Reason: Recheck today's complaints, Continuance of care, Re-evaluation by your physician. Problem is new. Symptoms have improved. pm1
--- NOTE | 2018-03-30 00:11 | ER ---
Nurse's Notes [facility] Name: Joanna Benavidez Age: 53 yrs Sex: Female : 1965 Arrival Date: 03/29/2018 Time: 21:09 Bed 13 Private MD: Diagnosis: Acute upper respiratory infection, unspecified Presentation: 03/29 21:10 Presenting complaint: Patient states: "This is like my day being sick. I've been aj1 taking Nyquil and nasal spray. I woke up this morning I felt real weak, because I was running fever, and I could hear the wheezing when I breathe in. Its sore and it herrmann and my body hurts. My ear hurts." Patient has not seen her PHCP regarding this complaint. Transition of care: patient was not received from another setting of care. Onset of symptoms was March 24, 2018. Risk Assessment: Do you want to hurt yourself or someone else? Patient reports no desire to harm self or others. Initial Sepsis Screen: Does the patient meet any 2 criteria? No. Patient's initial sepsis screen is negative. Does the patient have a suspected source of infection? Yes: Productive cough/pneumonia. Care prior to arrival: None. 21:10 Method Of Arrival: Ambulatory aj1 21:10 Acuity: FLORENTINO 4 aj1 Triage Assessment: 21:13 General: Appears in no apparent distress. uncomfortable, Behavior is calm, cooperative, aj1 appropriate for age. Pain: Complains of pain in right ear, chest, left aspect of posterior pharynx and right aspect of posterior pharynx Pain currently is 7 out of 10 on a pain scale. Neuro: Level of Consciousness is awake, alert, obeys commands. Cardiovascular: Patient's skin is warm and dry. Respiratory: Airway is patent Respiratory effort is even, unlabored, Respiratory pattern is regular, symmetrical. 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 - Social history:: Smoking status: Patient/guardian denies using tobacco. - Ebola Screening: : Patient denies travel to an Ebola-affected area in the 21 days before illness onset. Screenin:15 Abuse screen: Denies threats or abuse. Denies injuries from another. Nutritional rr5 screening: No deficits noted. Tuberculosis screening: No symptoms or risk factors identified. Fall Risk None identified. Assessment: 21:15 General: Appears in no apparent distress. uncomfortable, Behavior is calm, cooperative, rr5 appropriate for age. Pain: Complains of pain in right chest and back Pain does not radiate. Pain currently is 7 out of 10 on a pain scale. Quality of pain is described as aching, Pain began gradually, Is intermittent. 21:15 Neuro: Level of Consciousness is awake, alert, obeys commands, Oriented to person, rr5 place, time, situation. Cardiovascular: Capillary refill is > 3 seconds Patient's skin is warm and dry. Respiratory: Airway is patent Respiratory effort is even, unlabored, Respiratory pattern is regular, symmetrical. Respiratory: Reports cough that is. GI: No signs and/or symptoms were reported involving the gastrointestinal system. : No signs and/or symptoms were reported regarding the genitourinary system. EENT: No signs and/or symptoms were reported regarding the EENT system. Derm: Skin is intact, Skin temperature is warm. Musculoskeletal: Capillary refill < 3 seconds, Range of motion: intact in all extremities. 22:00 Reassessment: Patient appears in no apparent distress at this time. No changes from rr5 previously documented assessment. no complaints made. 23:00 Reassessment: Patient appears in no apparent distress at this time. awaiting for rr5 laboratory report Patient states feeling better. 03/30 00:34 Reassessment: Patient appears in no apparent distress at this time. No changes from rr5 previously documented assessment. discharge instruction given and explained with no complaints made. Patient states feeling better. 00:46 Reassessment: Patient appears in no apparent distress at this time. patient no rr5 complaints made, as verbalized I'm okay now ready to go home. Vital Signs: 03/29 21:13 BP 117 / 69; Pulse 74; Resp 18; Temp 99.0; Pulse Ox 99% on R/A; Weight 64.86 kg (R); aj1 Height 5 ft. 3 in. (160.02 cm); 22:00 BP 121 / 71; Pulse 71; Resp 18; Pulse Ox 98% ; rr5 23:00 BP 125 / 75; Pulse 80; Resp 19; Pulse Ox 99% ; rr5 03/30 00:00 BP 121 / 71; Pulse 81; Resp 18; Pulse Ox 99% ; rr5 03/29 21:13 Body Mass Index 25.33 (64.86 kg, 160.02 cm) aj1 ED Course: 03/29 21:09 Patient arrived in ED. es 21:12 Triage completed. aj1 21:13 Arm band placed on Patient placed in an exam room. aj1 21:15 Patient has correct armband on for positive identification. Placed in gown. Bed in low rr5 position. Call light in reach. 21:16 Hernan Simpson NP is PHCP. pm1 21:16 Gianluca Fong MD is Attending Physician. pm1 22:11 Misael Yu RN is Primary Nurse. rr5 22:48 Chest Pa And Lat (2 Views) XRAY In Process Unspecified. EDMS 23:22 No provider procedures requiring assistance completed. rr5 03/30 00:48 Patient did not have IV access during this emergency room visit. rr5 Administered Medications: 00:30 Drug: Tussionex Pennkinetic ER 5 ml Route: PO; rr5 00:47 Follow up: Response: Medication administered at discharge. rr5 Outcome: 00:10 Discharge ordered by . pm1 00:48 Discharged to home ambulatory, with family. rr5 00:48 Condition: stable 00:48 Discharge instructions given to patient, family. 00:48 Patient left the ED. rr5 Signatures: Dispatcher [employer] Lennie Figueroa RN RN aj1 Dina Morrell Patrick, NP COLLATING MACHINE OPERATOR pm1 Misael Yu, TATUM RN rr5
[2018-03-30] MEDS ORDERED: HYDROCODONE/CHLORPHEN 5 ML/OSYR ONE (00:38)
--- NOTE | 2018-03-30 08:23 | RAD REPORT ---
EXAM DESCRIPTION: RAD - Chest Pa And Lat (2 Views) - 03/29/2018 10:49 pm CLINICAL HISTORY: COUGH Chest pain. COMPARISON: No comparisons FINDINGS: The lungs are clear. The heart is normal in size. No displaced fractures. IMPRESSION: No acute or concerning finding suspected.
== END 2018-03-30 00:48 | disposition home or self-care (01) ==
LOC: ER 21:02
DX: J06.9 Acute upper respiratory infection, unspecified (principal)
CPT/HCPCS: 71046; 87070; 87081; 87804; 99283

== ENCOUNTER 2018-07-12 15:24 | Emergency (ER) | payer BC ==
[2018-07-12] MEDS ORDERED: ONDANSETRON 4 MG/2 ML VIAL ONE (17:32)
[2018-07-12] MEDS ORDERED: MORPHINE 4 MG/ML SYR ONE (17:32)
[2018-07-12 18:26] LABS: Absolute Lymphocytes (CBC) 2.4 K/uL (0.7-4.9); Absolute Monocytes 0.6 K/uL (0.1-1.3); Absolute Neutrophil 4.9 K/uL (1.8-8.0); Basophils % 0.4 % (0-1.3); Eosinophils % 2.6 % (0-4.4); Lymphocytes % 29.5 % (15.3-44.8); MPV 8.8 fL (7.6-11.3); Monocytes % 6.9 % (3.3-12.3); RBC Red Blood Cell Count 4.91 M/uL (3.86-4.86)
[2018-07-12 18:30] LABS: ALT/SGPT 19 U/L (12-78); AST/SGOT 19 U/L (15-37); Albumin 3.5 g/dL (3.4-5.0); Alkaline Phosphatase 122 U/L (45-117); BUN Blood Urea Nitrogen 11 mg/dL (7-18); Bicarbonate 27 mmol/L (21-32); Bilirubin Total 0.3 mg/dL (0.2-1.0); Glucose Level 117 mg/dL (74-106); Potassium 3.4 mmol/L (3.5-5.1); Sodium Level 144 mmol/L (136-145)
[2018-07-12] MEDS ORDERED: DIAZEPAM 10 MG/2 ML INJ SYRINGE ONE (18:58)
--- NOTE | 2018-07-12 19:16 | RAD REPORT ---
EXAM DESCRIPTION: CT - Chest For Pe Angio - 07/12/2018 6:56 pm CLINICAL HISTORY: Chest pain COMPARISON: None. TECHNIQUE: Dynamically enhanced axial 3 mm thick images of the chest were obtained during administra tion of <100> mL Isovue 370 IV contrast. Coronal and oblique reconstruction images were generated and reviewed. Exam utilizes a protocol for optimal evaluation of pulmonary arterial tree. Maximum intensity projections 3D imaging was utilized All CT scans are performed using dose optimization technique as appropriate and may include automated exposure control or mA/KV adjustment according to patient size. FINDINGS: A pulmonary embolus is not seen. A thoracic aortic aneurysm is not noted. Bovine aorta A pleural effusion is not seen. A pericardial effusion is not seen. A lung consolidation is not present. IMPRESSION: Negative for a pulmonary embolism.
--- NOTE | 2018-07-12 19:27 | EDPHYS ---
Physician Documentation [facility] Name: Joanna Benavidez Age: 53 yrs Sex: Female : 1965 Arrival Date: 07/12/2018 Time: 15:32 Bed 5 Private MD: ED Physician Chadwick Paul BI LEAD: 07/13 16:26 LMP N/A - iw Historical: - Allergies: 07/12 15:37 Ibuprofen; sv 15:37 Vioxx; sv - PMHx: 15:37 Ovarian cysts; uterine fibroids; sv - PSHx: 15:37 Tubal ligation; Appendectomy; sv - Immunization history:: Adult Immunizations up to date. - Ebola Screening: : No symptoms or risks identified at this time. - Social history:: Smoking status: Patient uses tobacco products. Vital Signs: 15:37 BP 113 / 77; Pulse 66; Resp 16; Temp 98; Pulse Ox 99% ; Weight 65.77 kg; Height 5 ft. 3 sv in. (160.02 cm); Pain 9/10; 19:00 BP 111 / 62; Pulse 68; Resp 18; Pulse Ox 100% on R/A; lp1 15:37 Body Mass Index 25.68 (65.77 kg, 160.02 cm) sv MDM: 17:17 Patient medically screened. [facility] 19:26 Data reviewed: vital signs, nurses notes. Counseling: I had a detailed discussion with jhoana the patient and/or guardian regarding: the historical points, exam findings, and any diagnostic results supporting the discharge/admit diagnosis, the need for outpatient follow up, to return to the emergency department if symptoms worsen or persist or if there are any questions or concerns that arise at home. 07/12 17:17 Order name: CMP; Complete Time: 18:32 [facility] 07/12 17:17 Order name: CBC with Diff; Complete Time: 18:32 [facility] 07/12 18:38 Order name: CT Chest For PE Angio; Complete Time: 19:18 [facility] 07/12 17:17 Order name: Saline Lock; Complete Time: 17:43 [facility] Administered Medications: 17:40 Drug: morphine 4 mg Route: IVP; Site: right antecubital; sg 17:45 Drug: Zofran 4 mg Route: IVP; Site: right antecubital; sg 19:09 Drug: Valium 2 mg Route: IVP; Site: right antecubital; sg 19:44 Follow up: Response: No adverse reaction; Pain is decreased lp1 Disposition: 07/12/18 19:26 Discharged to Home. Impression: Strain of muscle and tendon of back wall of thorax. - Condition is Stable. - Discharge Instructions: Thoracic Strain. - Prescriptions for Ultracet 37.5- 325 mg Oral Tablet - take 2 tablet by ORAL route every 6 hours - for up to 5 days; do not exceed 8 tablets per day.; 20 tablet. orphenadrine citrate 100 mg Oral Tablet Sustained Release - take 1 tablet by ORAL route 2 times per day As needed; 20 tablet. - Medication Reconciliation Form, Thank You Letter, Antibiotic Education, Prescription Opioid Use, Work release form form. - Follow up: Private Physician; When: 2 - 3 days; Reason: Recheck today's complaints, Continuance of care, Re-evaluation by your physician. Addendum: 07/14/2018 19:45 Co-signature as Attending Physician, Chadwick Paul MD. r n Signatures: Dispatcher [employer] EDTrini Joshi, RN RN rKistopher Grewal RN RN sg Serge Vargas PA PA Chadwick Torrez MD MD rn Pena, Laura RN RN lp1 Corrections: (The following items were deleted from the chart) 07/12 20:00 19:26 07/12/2018 19:26 Discharged to Home. Impression: Strain of muscle and tendon of lp1 back wall of thorax. Condition is Stable. Forms are Medication Reconciliation Form, Thank You Letter, Antibiotic Education, Prescription Opioid Use. Follow up: Private Physician; When: 2 - 3 days; Reason: Recheck today's complaints, Continuance of care, Re-evaluation by your physician. anabella
--- NOTE | 2018-07-12 19:27 | ER ---
Nurse's Notes [facility] Name: Joanna Benavidez Age: 53 yrs Sex: Female : 1965 Arrival Date: 07/12/2018 Time: 15:32 Bed 5 Private MD: Diagnosis: Strain of muscle and tendon of back wall of thorax Presentation: 07/12 15:36 Presenting complaint: Patient states: back pain and right posterior pain x 1 day. sv Reports lifting heavy boxes yesterday. Transition of care: patient was not received from another setting of care. Onset of symptoms was July 11, 2018. Care prior to arrival: None. 15:36 Method Of Arrival: Ambulatory sv 15:36 Acuity: FLORENTINO 4 sv 19:37 Risk Assessment: Do you want to hurt yourself or someone else? Patient reports no lp1 desire to harm self or others. Initial Sepsis Screen: Does the patient meet any 2 criteria? No. Patient's initial sepsis screen is negative. Does the patient have a suspected source of infection? No. Patient's initial sepsis screen is negative. 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 - Ebola Screening: : No symptoms or risks identified at this time. - Social history:: Smoking status: Patient uses tobacco products. Screenin:08 Abuse screen: Denies threats or abuse. Denies injuries from another. Nutritional iw screening: No deficits noted. Tuberculosis screening: No symptoms or risk factors identified. Fall Risk None identified. Assessment: 17:08 General: Appears in no apparent distress. Behavior is calm, cooperative. Pain: iw Complains of pain in back. Neuro: Level of Consciousness is awake, alert, obeys commands, Oriented to person, place, time, situation, Moves all extremities. Full function. Cardiovascular: Patient's skin is warm and dry. Respiratory: Respiratory effort is even, unlabored, Respiratory pattern is regular, symmetrical. GI: Abdomen is flat, non-distended. Derm: Skin is intact, is healthy with good turgor. Musculoskeletal: Range of motion: intact in all extremities. 18:00 Reassessment: Patient appears in no apparent distress at this time. Patient is alert, sg oriented x 3, equal unlabored respirations, skin warm/dry/pink. Patient states symptoms have not improved. 19:08 Reassessment: Patient appears in no apparent distress at this time. pt returned from CT sg scan, awaiting radiology results at this time, pt reports pain is a 10/10 in the right anteriro chest wall as well as the right trapezius as well as under the right arm pit, pt medicated, bedside report given to Naomi WINN and student nurst. 19:43 Reassessment: Patient waiting for ride for discharge. lp1 Vital Signs: 15:37 BP 113 / 77; Pulse 66; Resp 16; Temp 98; Pulse Ox 99% ; Weight 65.77 kg; Height 5 ft. 3 sv in. (160.02 cm); Pain 9/10; 19:00 BP 111 / 62; Pulse 68; Resp 18; Pulse Ox 100% on R/A; lp1 15:37 Body Mass Index 25.68 (65.77 kg, 160.02 cm) sv ED Course: 15:32 Patient arrived in ED. tw3 15:37 Triage completed. sv 15:37 Arm band placed on Patient placed in waiting room, Patient notified of wait time. sv 16:59 Serge Vargas PA is PHCP. jmm 16:59 Chadwick Paul MD is Attending Physician. jmm 17:08 Kelly Santiago, TATUM is Primary Nurse. iw 17:30 Initial lab(s) drawn, by ED staff, sent to lab. Inserted saline lock: 20 gauge in right iw antecubital area, using aseptic technique. Blood collected. 17:50 Patient has correct armband on for positive identification. Bed in low position. Call sg light in reach. Side rails up X2. Pulse ox on. NIBP on. Head of bed elevated. 18:[address] via wheelchair. vr 18:56 CT Chest For PE Angio In Process Unspecified. EDMS 19:37 No provider procedures requiring assistance completed. IV discontinued, No lp1 redness/swelling at site. Pressure dressing applied. Administered Medications: 17:40 Drug: morphine 4 mg Route: IVP; Site: right antecubital; sg 17:45 Drug: Zofran 4 mg Route: IVP; Site: right antecubital; sg 19:09 Drug: Valium 2 mg Route: IVP; Site: right antecubital; sg 19:44 Follow up: Response: No adverse reaction; Pain is decreased lp1 Outcome: 19:26 Discharge ordered by MD. ely 19:38 Discharged to home ambulatory, with friend. lp1 19:38 Condition: good 19:38 Discharge instructions given to patient, Instructed on discharge instructions, follow up and referral plans. medication usage, Demonstrated understanding of instructions, follow-up care, medications, Prescriptions given X 2. 19:45 Patient left the ED. lp1 Signatures: Dispatcher [employer] EDMS Trini Cid, RN Kristopher Beth RN Serge Nicholas PA PA jmm Williams, Irene, RN Leida Cm Laura, RN RN lp1 Rey, Claribel tw3 Corrections: (The following items were deleted from the chart) 20:01 20:00 Patient left the ED. lp1 lp1
== END 2018-07-12 20:00 | disposition home or self-care (01) ==
LOC: ER 15:24
DX: S29.012A Strain of muscle and tendon of back wall of thorax, initial encounter (principal); Z88.6 Allergy status to analgesic agent
CPT/HCPCS: 36415; 71275; 80053; 85025; 96374; 96375; 99284; J2405; J3360; Q9967

== ENCOUNTER 2018-12-14 04:17 | Emergency (ER) | payer BC ==
[2018-12-14] MEDS ORDERED: dexAMETHasone 10 MG/ML VIAL ONE (05:09)
[2018-12-14] MEDS ORDERED: DIAZEPAM 5 MG TABLET ONE (05:09)
[2018-12-14] MEDS ORDERED: ONDANSETRON 4 MG/2 ML VIAL ONE ×2 (05:10→08:17)
[2018-12-14] MEDS ORDERED: MORPHINE 4 MG/ML SYR ONE ×2 (05:10→08:17)
[2018-12-14 05:32] LABS: Absolute Lymphocytes (CBC) 1.8 K/uL (0.7-4.9); Basophils % 0.4 % (0-1.3); Hematocrit 43.6 % (36.0-45.0); Lymphocytes % 17.1 % (15.3-44.8); MPV 8.5 fL (7.6-11.3); RBC Red Blood Cell Count 4.81 M/uL (3.86-4.86)
[2018-12-14 05:36] LABS: Protime INR 1.02
[2018-12-14 05:53] LABS: ALT/SGPT 22 U/L (12-78); AST/SGOT 11 U/L (15-37); Albumin 4.1 g/dL (3.4-5.0); Alkaline Phosphatase 110 U/L (45-117); BUN Blood Urea Nitrogen 17 mg/dL (7-18); Bicarbonate 26 mmol/L (21-32); Bilirubin Direct 0.2 mg/dL (0-0.2); Bilirubin Total 0.7 mg/dL (0.2-1.0); Glucose Level 108 mg/dL (74-106); Lipase 108 U/L (73-393); Magnesium 1.9 mg/dL (1.8-2.4); NT PRO-BNP 41 pg/mL (<125); Potassium 3.5 mmol/L (3.5-5.1); Protein, Total 7.5 g/dL (6.4-8.2); Sodium Level 145 mmol/L (136-145); Troponin (Emerg Dept Use Only) < 0.02 ng/mL (0.0-0.045)
--- NOTE | 2018-12-14 07:36 | EKG ---
Test Date: 2018-12-14 Test Time: 05:15:49 Lumber Press Operator: IVAN MEASUREMENT RESULTS: Intervals: Rate: 70 LA: 156 QRSD: 90 QT: 402 QTc: 434 Otter: P: 69 LA: 156 QRS: 35 T: 18 INTERPRETIVE STATEMENTS: Normal sinus rhythm Possible Left atrial enlargement Possible Anterior infarct, age undetermined Abnormal ECG No previous ECG available for comparison Electronically Signed On 12-14-18 07:36:21 CDT by Zenon Gibson
--- NOTE | 2018-12-14 07:37 | ER ---
Nurse's Notes [facility] Name: Joanna Benavidez Age: 53 yrs Sex: Female : 1965 Arrival Date: 12/14/2018 Time: 04:21 Bed 6 Private MD: Diagnosis: Strain of muscle and tendon of back wall of thorax;Strain of muscle and tendon of front wall of thorax;Strain of muscle, fascia and tendon at neck level Presentation: 12/14 04:20 Presenting complaint: Patient states: that she has a few problems this am. #1 she is fc having pain to right shoulder, right shoulder blade, and right armpit that started yesterday after she woke up. #2 she is having left arm burning and numbess that started 1 month ago. No injury for either #1 or #2. Then #3 problem was that she was exposed to strep throat a few days ago and wants that checked. Transition of care: patient was not received from another setting of care. Onset of symptoms was December 2018. Risk Assessment: Do you want to hurt yourself or someone else? Patient reports no desire to harm self or others. Initial Sepsis Screen: Does the patient meet any 2 criteria? No. Patient's initial sepsis screen is negative. Does the patient have a suspected source of infection? No. Patient's initial sepsis screen is negative. Care prior to arrival: Medication(s) given: Alleve at 2000 last night. 04:20 Method Of Arrival: Ambulatory 04:20 Acuity: FLORENTINO 4 fc Historical: - Allergies: 04:51 Ibuprofen; fc 04:51 Vioxx; fc - Home Meds: 04:51 None [Active]; fc - PMHx: 04:51 Ovarian cysts; uterine fibroids; fc - PSHx: 04:51 Tubal ligation; Appendectomy; fc - Immunization history:: Last tetanus immunization: unknown. - Social history:: Smoking status: Patient uses tobacco products, Vaps, Patient uses alcohol, but reports only rare drinking. Patient/guardian denies using street drugs. - Ebola Screening: : No symptoms or risks identified at this time. - Family history:: not pertinent. Screenin:45 Abuse screen: Denies threats or abuse. Denies injuries from another. Nutritional lp1 screening: No deficits noted. Tuberculosis screening: No symptoms or risk factors identified. Fall Risk None identified. Assessment: 04:43 General: Appears in no apparent distress. Behavior is appropriate for age. Pain: lp1 Complains of pain in anterior aspect of right shoulder Pain radiates to right upper chest. Neuro: Level of Consciousness is awake, alert, obeys commands, Oriented to person, place, time, situation, Gait is steady. Cardiovascular: Patient's skin is warm and dry. Respiratory: Respiratory effort is even, unlabored. GI: No signs and/or symptoms were reported involving the gastrointestinal system. : No signs and/or symptoms were reported regarding the genitourinary system. EENT: Reports being in contact with someone with Strep throat. Derm: Skin is pink, warm \T\ dry. Musculoskeletal: Range of motion: limited in right shoulder Reports pain in right shouler. 06:00 Reassessment: Patient and/or family updated on plan of care and expected duration. Pain lp1 level reassessed. Patient resting, eyes closed, respirations unlabored. 08:06 Reassessment: Patient appears in no apparent distress at this time. Patient and/or ph family updated on plan of care and expected duration. Pain level reassessed. Patient is alert, oriented x 3, equal unlabored respirations, skin warm/dry/pink. Pt taken to restroom via wheelchair, awaiting results of CT scan before d/c. 08:30 Reassessment: Patient appears in no apparent distress at this time. Patient and/or ph family updated on plan of care and expected duration. Pain level reassessed. Patient is alert, oriented x 3, equal unlabored respirations, skin warm/dry/pink. Pt resting quietly, morphine administered, will monitor pt before d/c. Vital Signs: 04:20 BP 110 / 72; Pulse 79; Resp 18; Temp 98.3(O); Pulse Ox 96% on R/A; Weight 66.68 kg (R); fc Height 5 ft. 3 in. (160.02 cm) (R); Pain 9/10; 05:00 BP 106 / 76; Pulse 69; Resp 16; Pulse Ox 96% on R/A; lp1 06:00 BP 105 / 67; Pulse 66; Resp 16; Pulse Ox 95% on R/A; lp1 09:02 BP 99 / 68; Pulse 66; Resp 18; Temp 97.8; Pulse Ox 95% on R/A; ph 04:20 Body Mass Index 26.04 (66.68 kg, 160.02 cm) ED Course: 04:20 Patient has correct armband on for positive identification. fc 04:21 Patient arrived in ED. ag3 04:33 Maxime Stark MD is Attending Physician. lai 04:43 Naomi Lam, RN is Primary Nurse. lp1 04:45 Arm band placed on. lp1 04:49 Triage completed. fc 05:17 Initial lab(s) drawn, by mt, sent to lab. Inserted saline lock: 20 gauge in right jb4 forearm, using aseptic technique. Blood collected. 06:42 CT C Spine In Process Unspecified. EDMS 06:44 CT Chest For PE Angio In Process Unspecified. EDMS 07:09 No provider procedures requiring assistance completed. lp1 07:26 XRAY Chest (1 view) In Process Unspecified. EDMS Administered Medications: 05:15 Drug: Valium 5 mg Route: PO; lp1 06:00 Follow up: Response: No adverse reaction; Marked relief of symptoms lp1 05:20 Drug: morphine 4 mg {Note: RASS 0.} Route: IVP; Site: right forearm; lp1 06:00 Follow up: Response: Marked relief of symptoms; RASS: Alert and Calm (0) lp1 05:20 Drug: Zofran 4 mg {Note: RASS 0.} Route: IVP; Site: right forearm; lp1 06:00 Follow up: Response: No adverse reaction lp1 05:20 Drug: Decadron - Dexamethasone 10 mg Route: IVP; Site: right forearm; lp1 06:15 Follow up: Response: No adverse reaction lp1 08:29 Drug: morphine 4 mg {Note: RASS -1.} Route: IVP; Site: right wrist; ph 09:33 Follow up: Response: No adverse reaction; Pain is decreased hb 08:29 Drug: Zofran 4 mg Route: IVP; Site: right wrist; ph Outcome: 07:35 Discharge ordered by . lai 09:36 Patient left the ED. hb Signatures: Dispatcher [employer] EDMS Maxime Stark MD MD cha Chretien, Felicia, RN RN Naomi Lam RN RN [facility] Piedad Yang RN RN ph Tamara Mae RN RN Juan Dvaid Veras RN RN jb4 Paloma Carmona ag3 Corrections: (The following items were deleted from the chart) 04:50 04:45 Patient has correct armband on for positive identification. lp1 fc 08:07 08:06 Reassessment: Patient appears in no apparent distress at this time. Patient ph and/or family updated on plan of care and expected duration. Pain level reassessed. Patient is alert, oriented x 3, equal unlabored respirations, skin warm/dry/pink. Pty taken to restroom via wheelchair ph 08:30 08:29 morphine 4 mg IVP in right wrist ph ph
--- NOTE | 2018-12-14 07:37 | EDPHYS ---
Physician Documentation [facility] Name: Joanna Benavidez Age: 53 yrs Sex: Female : 1965 Arrival Date: 12/14/2018 Time: 04:21 Bed 6 Private MD: ED Physician Maxime Stark HPI: 12/14 04:57 This 53 yrs old Female presents to ER via Ambulatory with complaints of Back lai Pain. 04:57 The patient presents with pain that is acute. The symptoms are located in the left lai trapezius, right trapezius, left scapular area, right scapular area and thoracic area. Onset: The symptoms/episode began/occurred 2 day(s) ago. Location: left scapular area, right scapular area, left flank and right flank. Historical: - Allergies: 04:51 Ibuprofen; fc 04:51 Vioxx; fc - Home Meds: 04:51 None [Active]; fc - PMHx: 04:51 Ovarian cysts; uterine fibroids; fc - PSHx: 04:51 Tubal ligation; Appendectomy; fc - Immunization history:: Last tetanus immunization: unknown. - Social history:: Smoking status: Patient uses tobacco products, Vaps, Patient uses alcohol, but reports only rare drinking. Patient/guardian denies using street drugs. - Ebola Screening: : No symptoms or risks identified at this time. - Family history:: not pertinent. ROS: 04:57 Constitutional: Negative for fever, chills, and weight loss, Eyes: Negative for injury, lai pain, redness, and discharge, ENT: Negative for injury, pain, and discharge, Neck: Negative for injury, pain, and swelling, Cardiovascular: Negative for chest pain, palpitations, and edema, Respiratory: Negative for shortness of breath, cough, wheezing, and pleuritic chest pain, Abdomen/GI: Negative for abdominal pain, nausea, vomiting, diarrhea, and constipation, Back: Negative for injury and pain, : Negative for injury, bleeding, discharge, and swelling, Skin: Negative for injury, rash, and discoloration, Neuro: Negative for headache, weakness, numbness, tingling, and seizure, Psych: Negative for depression, anxiety, suicide ideation, homicidal ideation, and hallucinations, Allergy/Immunology: Negative for hives, rash, and allergies, Endocrine: Negative for neck swelling, polydipsia, polyuria, polyphagia, and marked weight changes, Hematologic/Lymphatic: Negative for swollen nodes, abnormal bleeding, and unusual bruising. 04:57 Respiratory: Positive for cough, shortness of breath, at rest. 04:57 MS/extremity: Positive for decreased range of motion, pain. Exam: 04:57 Constitutional: This is a well developed, well nourished patient who is awake, alert, lai and in no acute distress. Head/Face: Normocephalic, atraumatic. Eyes: Pupils equal round and reactive to light, extra-ocular motions intact. Lids and lashes normal. Conjunctiva and sclera are non-icteric and not injected. Cornea within normal limits. Periorbital areas with no swelling, redness, or edema. ENT: Nares patent. No nasal discharge, no septal abnormalities noted. Tympanic membranes are normal and external auditory canals are clear. Oropharynx with no redness, swelling, or masses, exudates, or evidence of obstruction, uvula midline. Mucous membranes moist. Neck: Trachea midline, no thyromegaly or masses palpated, and no cervical lymphadenopathy. Supple, full range of motion without nuchal rigidity, or vertebral point tenderness. No Meningismus. Chest/axilla: Normal chest wall appearance and motion. Nontender with no deformity. No lesions are appreciated. Cardiovascular: Regular rate and rhythm with a normal S1 and S2. No gallops, murmurs, or rubs. Normal PMI, no JVD. No pulse deficits. Abdomen/GI: Soft, non-tender, with normal bowel sounds. No distension or tympany. No guarding or rebound. No evidence of tenderness throughout. Back: No spinal tenderness. No costovertebral tenderness. Full range of motion. Skin: Warm, dry with normal turgor. Normal color with no rashes, no lesions, and no evidence of cellulitis. MS/ Extremity: Pulses equal, no cyanosis. Neurovascular intact. Full, normal range of motion. Neuro: Awake and alert, GCS 15, oriented to person, place, time, and situation. Cranial nerves II-XII grossly intact. Motor strength 5/5 in all extremities. Sensory grossly intact. Cerebellar exam normal. Normal gait. Psych: Awake, alert, with orientation to person, place and time. Behavior, mood, and affect are within normal limits. 04:57 Respiratory: the patient does not display signs of respiratory distress, Respirations: normal, Breath sounds: decreased breath sounds, rhonchi, that are mild. 06:04 ENT: Posterior pharynx: Tonsils: are normal in appearance, Uvula: normal, midline, lai non-edematous, no erythema, swelling, is not appreciated, erythema, is not appreciated, exudate, is not appreciated, peritonsillar mass, is not appreciated, pooling of secretions, is not appreciated. 07:20 Skin: abscess, not appreciated, cellulitis, is not appreciated, no rash present. [facility] Vital Signs: 04:20 BP 110 / 72; Pulse 79; Resp 18; Temp 98.3(O); Pulse Ox 96% on R/A; Weight 66.68 kg (R); Height 5 ft. 3 in. (160.02 cm) (R); Pain 9/10; 05:00 BP 106 / 76; Pulse 69; Resp 16; Pulse Ox 96% on R/A; lp1 06:00 BP 105 / 67; Pulse 66; Resp 16; Pulse Ox 95% on R/A; lp1 09:02 BP 99 / 68; Pulse 66; Resp 18; Temp 97.8; Pulse Ox 95% on R/A; ph 04:20 Body Mass Index 26.04 (66.68 kg, 160.02 cm) Procedures: 07:07 Central Line: the site was prepped with Betadine, in sterile fashion, a triple lumen [facility] catheter was inserted, in the right femoral vein, in 2 attempts. placement was verified, by blood return, the site was dressed with using sterile technique, the patient tolerated the procedure, well. MDM: 04:33 Patient medically screened. [facility] 05:00 Data reviewed: vital signs, nurses notes, lab test result(s), EKG, radiologic studies, [facility] CT scan, plain films. 12/14 04:56 Order name: Basic Metabolic Panel; Complete Time: 06:04 [facility] 12/14 04:56 Order name: CBC with Diff; Complete Time: 06:04 [facility] 12/14 04:56 Order name: LFT's; Complete Time: 06:04 [facility] 12/14 04:56 Order name: Magnesium; Complete Time: 06:04 [facility] 12/14 04:56 Order name: NT PRO-BNP; Complete Time: 06:04 [facility] 12/14 04:56 Order name: PT-INR; Complete Time: 06:04 [facility] 12/14 04:56 Order name: Troponin (emerg Dept Use Only); Complete Time: 06:04 [facility] 12/14 04:56 Order name: XRAY Chest (1 view) [facility] 12/14 04:56 Order name: CT C Spine [facility] 12/14 04:56 Order name: CT Chest For PE Angio [facility] 12/14 05:29 Order name: Lipase; Complete Time: 06:04 EDMS 12/14 06:10 Order name: Urine Dipstick--Ancillary (enter results) ar 12/14 04:56 Order name: EKG; Complete Time: 04:58 [facility] 12/14 04:56 Order name: Cardiac monitoring; Complete Time: 05:23 [facility] 12/14 04:56 Order name: EKG - Nurse/Tech; Complete Time: 05:23 [facility] 12/14 04:56 Order name: IV Saline Lock; Complete Time: 05:23 [facility] 12/14 04:56 Order name: Labs collected and sent; Complete Time: 05:23 [facility] 12/14 04:56 Order name: O2 Per Protocol; Complete Time: 05:23 [facility] 12/14 04:56 Order name: O2 Sat Monitoring; Complete Time: 05:23 [facility] 12/14 04:56 Order name: Urine Dipstick-Ancillary (obtain specimen); Complete Time: 05:30 [facility] Administered Medications: 05:15 Drug: Valium 5 mg Route: PO; lp1 06:00 Follow up: Response: No adverse reaction; Marked relief of symptoms lp1 05:20 Drug: morphine 4 mg {Note: RASS 0.} Route: IVP; Site: right forearm; lp1 06:00 Follow up: Response: Marked relief of symptoms; RASS: Alert and Calm (0) lp1 05:20 Drug: Zofran 4 mg {Note: RASS 0.} Route: IVP; Site: right forearm; lp1 06:00 Follow up: Response: No adverse reaction lp1 05:20 Drug: Decadron - Dexamethasone 10 mg Route: IVP; Site: right forearm; lp1 06:15 Follow up: Response: No adverse reaction lp1 08:29 Drug: morphine 4 mg {Note: RASS -1.} Route: IVP; Site: right wrist; ph 09:33 Follow up: Response: No adverse reaction; Pain is decreased hb 08:29 Drug: Zofran 4 mg Route: IVP; Site: right wrist; ph Disposition: 12/14/18 07:35 Discharged to Home. Impression: Strain of muscle and tendon of back wall of thorax, Strain of muscle and tendon of front wall of thorax, Strain of muscle, fascia and tendon at neck level. - Condition is Stable. - Discharge Instructions: Back Pain, Adult, Muscle Strain, Cervical Sprain, [id number], Back Pain, Adult, [id number], Muscle Strain, [id number]. - Prescriptions for Tylenol- Codeine #3 300-30 mg Oral Tablet - take 2 tablet by ORAL route every 6 hours As needed; 30 tablet. Valium 5 mg Oral Tablet - take 1 tablet by ORAL route every 8 hours As needed; 20 tablet. Medrol (Moises) 4 mg Oral Tablets, Dose Pack - take 1 tablet by ORAL route as directed - follow package instructions; 1 packet. - Medication Reconciliation Form, Thank You Letter, Antibiotic Education, Prescription Opioid Use, Work release form form. - Follow up: Private Physician; When: 2 - 3 days; Reason: Recheck today's complaints, Continuance of care, Re-evaluation by your physician. - Problem is new. - Symptoms have improved. Signatures: Dispatcher [employer] [facility] Maxime Stark MD MD cha Chretien, Felicia, RN RN Naomi Lam RN RN lp1 Piedad Yang RN RN Tamara Mae RN RN Corrections: (The following items were deleted from the chart) 05:29 05:10 LIPASE+C.LAB.BRZ ordered. [facility] 09:36 07:35 12/14/2018 07:35 Discharged to Home. Impression: Strain of muscle and tendon of hb back wall of thorax; Strain of muscle and tendon of front wall of thorax; Strain of muscle, fascia and tendon at neck level. Condition is Stable. Discharge Instructions: Back Pain, Adult, Muscle Strain, Cervical Sprain, [id number], Back Pain, Adult, [id number], Muscle Strain, [id number]. Prescriptions for Tylenol-Codeine #3 300-30 mg Oral Tablet - take 2 tablet by ORAL route every 6 hours As needed; 30 tablet, Valium 5 mg Oral Tablet - take 1 tablet by ORAL route every 8 hours As needed; 20 tablet, Medrol (Moises) 4 mg Oral Tablets, Dose Pack - take 1 tablet by ORAL route as directed - follow package instructions; 1 packet. and Forms are Medication Reconciliation Form, Thank You Letter, Antibiotic Education, Prescription Opioid Use. Follow up: Private Physician; When: 2 - 3 days; Reason: Recheck today's complaints, Continuance of care, Re-evaluation by your physician. Problem is new. Symptoms have improved. lai
--- NOTE | 2018-12-14 08:06 | RAD REPORT ---
EXAM DESCRIPTION: Yur[facility] Single View12/14/2018 7:19 am CLINICAL HISTORY: Chest pain COMPARISON: 2018 FINDINGS: The lungs appear clear of acute infiltrate. The heart is normal size IMPRESSION: No acute abnormalities displayed
[2018-12-14 08:21] LABS: Urine Blood TRACE (NEG); Urine Glucose NEGATIVE (NEG); Urine Protein NEGATIVE (NEG); Urine Specific Gravity >1.030 (1.005-1.030)
[2018-12-14 09:55] VITALS: O2SAT 95
[2018-12-14 09:56] VITALS: BP 99/68; TEMP 97.8
--- NOTE | 2018-12-14 11:26 | RAD REPORT ---
EXAM DESCRIPTION: CT - C Spine Wo Con - 12/14/2018 8:05 am TECHNIQUE: Axial scans through the cervical spine without contrast including multiplanar reformation s. Total Dose Length Product: 25. This exam was performed according to our departmental dose-optimization program, which includes autom ated exposure control, adjustment of the mA and/or kV according to patient size and/or use of iterati ve reconstruction technique. CLINICAL HISTORY: PAIN. FINDINGS: C1-2: The predental space is normal. C2-3: The disc is height is normal. There is no disc herniation. C3-4: The disc is height is normal. There is no disc herniation. C4-5: The disc is height is normal. There is no disc herniation. C5-6: The disc is height is normal. The disc is moderately narrowed. There is small disc osteophyte c omplex. There is small uncinate hypertrophy. There is no cord compression or spinal stenosis. C6-7: The disc is height is moderately narrowed. Small posterior lateral spondylosis slightly displac es the thecal sac. Small uncinate hypertrophy. No cord compression or spinal stenosis. Intradural: Negative to the limits of visualization by CT. Skeletal structures: There is no acute fracture. There is no subluxation. Musculature and soft tissues: Unremarkable. IMPRESSION: 1. C5-6: Small disc osteophyte complex. Left lateral recess stenosis. No spinal or tito inal stenosis. 2. C6-7: Small disc osteophyte complex. No spinal or foraminal stenosis. Electronically signed by: Earnest Villalba MD 12/14/2018 7:13 AM CDT Due to temporary technical issues with the PACS/Fluency reporting system, reports are being signed by the in house radiologist as a courtesy to ensure prompt reporting. The interpreting radiologist is f ully responsible for the content of the report.
--- NOTE | 2018-12-14 13:30 | RAD REPORT ---
EXAM DESCRIPTION: CT - Chest For Pe Angio - 12/14/2018 7:02 am CLINICAL HISTORY: The patient is 53 years old and is Female; CHEST PAIN TECHNIQUE: Axial computed tomographic angiography images of the chest with intravenous contrast. S agittal and coronal reformatted images were created and reviewed. This CT exam was performed using one or more of the following dose reduction techniques: automated exposure control, adjustment of t he mA and/or kV according to patient size, and/or use of iterative reconstruction technique. MIP reconstructed images were created and reviewed. COMPARISON: CTA of the chest July 12, 2018. FINDINGS: PULMONARY ARTERIES: There are no obvious filling defects identified within the pulmonary arteries to suggest pulmonary embolism. AORTA: No acute findings. No thoracic aortic aneurysm. LUNGS: Minimal dependent densities in the lung bases are present. No mass. PLEURAL SPACE: Unremarkable. No significant effusion. No pneumothorax. HEART: Unremarkable. No cardiomegaly. No significant pericardial effusion. No evidence of RV dysfunction. BONES/JOINTS: No acute fracture. No dislocation. SOFT TISSUES: Unremarkable. LYMPH NODES: Unremarkable. No enlarged lymph nodes. LIVER: There is a diffuse decrease in hepatic parenchymal density, consistent with fatty infiltr ation. The liver is enlarged. IMPRESSION: 1. No evidence of pulmonary embolism. 2. Minimal bibasilar atelectasis. Electronically signed by: Ceci Jones MD 12/14/2018 6:52 AM CDT Due to temporary technical issues with the PACS/Fluency reporting system, reports are being signed by the in house radiologist as a courtesy to ensure prompt reporting. The interpreting radiologist is f ully responsible for the content of the report.
== END 2018-12-14 09:36 | disposition home or self-care (01) ==
LOC: ER 04:17
DX: S29.012A Strain of muscle and tendon of back wall of thorax, initial encounter (principal); S29.011A Strain of muscle and tendon of front wall of thorax, initial encounter; S16.1XXA Strain of muscle, fascia and tendon at neck level, initial encounter; Z88.6 Allergy status to analgesic agent; F17.290 Nicotine dependence, other tobacco product, uncomplicated
CPT/HCPCS: 93005; 85025; 80048; 36415; 83735; 85610; 80076; 81003; 84484; 83690; 83880; 72125; 71275; 71045; 96375; 96374; 99284; Q9967; J1100; J2405 ×2

== ENCOUNTER 2019-04-14 14:25 | Emergency (ER) | payer BC ==
--- OUTSIDE RECORDS SUMMARY | 2019-04-14 14:27 | XMS REPORT | Encounter Summary ---
:1965 Author Care Team Providers Name Role Phone Ltei Sia Primary Care Provider [phone] Mony Thornton Drapery Cutter Machine [phone] Reason for Visit colposcopy/biopsy Instructions 1. Cervicovaginal cytology: Low grade squamous intraepithelial lesion biopsy, cervical test, urine urinalysis, dipstick 2. Polyp of cervix cervical polyps: care instructions Discussion Note Colposcopy with biopsies done. Discussed today's findings and my impression. Reviewed general info about dysplasia, HPV, and treatment options. Plan: Await results. Plan of Care Reminders Provider Appointments Consult on or around Lexie Franco 03/22/2019 MD Sandra Well Woman on or around Mony Chacon Exam 02/21/2020 JOHANNA Thornton Lab Biopsy, 03/07/2019 [facility] (Lab) 03/07/2019 In-House Results Test, Urine Urinalysis, 03/07/2019 In-House Results Dipstick Referral None recorded. Procedures None recorded. Surgeries None recorded. Imaging None recorded. Medications Name Start Date acetaminophen 300 mg-codeine 30 mg tablet diazepam 5 mg tablet methylprednisolone 4 mg tablets in a dose pack metronidazole 500 mg tablet Take 1 tablet every 8 hours by oral route. orphenadrine citrate ER 100 mg tablet,extended release oseltamivir 75 mg capsule Take 1 capsule twice a day by oral route for 5 days. tramadol tramadol 37.5 mg-acetaminophen 325 mg tablet Medications Administered None recorded. Vitals Height Weight BMI Blood Pressure 5 ft 3 in 151.3 lbs 26.8 kg/m2 123/68 mm[Hg] Results Lab Results Date Name Specimen Result Interpretation Description Value Range Status Address 03/07/2019 Test negative In-House Test, Urine Results: For Internal Use Only 02/20/2019 Pap Test, Results Final [facility] (Lab): [address] [place] [address] 02/20/2019 Urinalysis, Leukocytes Negative In-House Dipstick Results: For Internal Use Only Nitrite negative In-House Results: For Internal Use Only Urobilinogen 1 In-House Results: For Internal Use Only Protein Negative In-House Results: For Internal Use Only Ph 6.0 In-House Results: For Internal Use Only Blood Negative In-House Results: For Internal Use Only Specific 1.025 In-House [place] Results: For Internal Use Only Ketone Negative In-House Results: For Internal Use Only Bilirubin Negative In-House Results: For Internal Use Only Glucose Negative In-House Results: For Internal Use Only Appearance Clear In-House Results: For Internal Use Only Color Yellow In-House Results: For Internal Use Only Urinalysis, Leukocytes Trace In-House Dipstick Results: For Internal Use Only Nitrite negative In-House Results: For Internal Use Only Urobilinogen 1 In-House Results: For Internal Use Only Protein Negative In-House Results: For Internal Use Only Ph 7.5 In-House Results: For Internal Use Only Blood Negative In-House Results: For Internal Use Only Specific 1.020 In-House [place] Results: For Internal Use Only Ketone Negative In-House Results: For Internal Use Only Bilirubin Negative In-House Results: For Internal Use Only Glucose Negative In-House Results: For Internal Use Only Appearance Clear In-House Results: For Internal Use Only Color Yellow In-House Results: For Internal Use Only Allergies Code Code System Name Reaction Severity Status Onset 5640 RxNorm Ibuprofen Active Vioxx Rash Active Problems Name Status Onset Date Source Bacterial Vaginosis Active 01/04/2018 Gynecologic Examination Active 01/04/2018 Venereal Disease Screening Active 01/04/2018 Screening for Malignant Neoplasm of Active 01/04/2018 Breast History of Diabetes Mellitus Active 01/04/2018 Migraine Active 01/17/2018 HPV - Human Papillomavirus Test Positive Active 01/17/2018 Recurrent Urinary Tract Infection Active 06/25/2018 Influenza-like Symptoms Active 02/20/2019 Diarrhea Active 02/20/2019 Cervicovaginal Cytology: Low Grade Active 03/08/2019 Squamous Intraepithelial Lesion Polyp of Cervix Active 03/08/2019 Candidiasis of Vagina Active Encounter Candidiasis of Skin Active Encounter Diabetes Mellitus Active Encounter Pharyngitis Active Encounter Upper Respiratory Infection Active Encounter Sinusitis Active Encounter Dental Abscess Active Encounter Procedures Date Name Performed by 11/28/2017 Appendectomy Information not available 04/03/1997 Anesth Tubal Ligation Information not available 02/20/2019 MAMMO, Screening, Bilateral [facility] (Imaging ) [address] [place] [address] (Work Place) Vaccine List None recorded. Social History Tobacco Smoking Status Light Tobacco Smoker (2 PPW) Past Encounters 03/07/2019 Cervicovaginal Cytology: Low Grade Squamous Intraepithelial Lesion; Polyp of Cervix JOHANNA Cho: [address], [place] [address] , Ph. [phone] 02/20/2019 Gynecologic Examination; Screening for Malignant Neoplasm of Breast; Influenza- like Symptoms; Diarrhea JOHANNA Cho: [address], [place] [address] , Ph. [phone] History of Present Illness Note: Pt arrives for scheduled Colposcopy for LSIL. HCG: negative. Informed consent signed.Review of Systems: ROS as noted in the HPI Review of Systems None recorded. Physical Exam None recorded.
--- OUTSIDE RECORDS SUMMARY | 2019-04-14 14:27 | XMS REPORT | Encounter Summary ---
:1965 Author Care Team Providers Name Role Phone Leti Stovall Primary Care Provider [phone] Reason for Visit Well woman exam Instructions 1. Gynecologic examination urinalysis, dipstick HbA1c (hemoglobin A1c), blood rapid flu (A+B) pap, IG + HR HPV CBC w/ auto diff 2. Screening for malignant neoplasm of breast MAMMO, screening, bilateral 3. Influenza-like symptoms Tamiflu 75 mg capsule 4. Diarrhea Flagyl 500 mg tablet Discussion Note Counseled on flu like symptom care, fluids/rest and medications as prescribed. Pap and breast exam done. Schedule mammogram. Referral for colonoscopy. Counseled regarding bone health, sparing exercise, and vitamin D and calcium supplementation. Counseled regarding early colon cancer screenings and importance of intial clonoscopy for detecting colon cancer early. Advised avoidance of tobacco, alcohol, and drugs . Encouraged good nutrition, regular exercise, and ideal body weight. At least 30 min. of face to face time spent with the patient, >50% of which was counseling. Patient educational handouts: No information available. Plan of Care Reminders Provider Appointments Consult on or around Lexie Franco 03/22/2019 MD Sandra Well Woman on or around Mony Chacon Exam 02/21/2020 JOHANNA Thornton Lab Urinalysis, 02/20/2019 In-House Results Dipstick HbA1C 02/20/2019 [place] (Hemoglobin a1C), [facility] (Labs) (Xray) Rapid Flu 02/20/2019 [place] (A+B) [facility] (Labs) (Xray) Pap, IG + 02/20/2019 [place] hr HPV [facility] (Labs) (Xray) CBC W/ Auto 02/20/2019 [place] Diff [facility] (Labs) (Xray) Referral None recorded. Procedures None recorded. Surgeries None recorded. Imaging MAMMO, 02/20/2019 [place] Screening, Bilateral [facility] (Imaging) Medications Name Start Date Flagyl 500 mg tablet Take 1 tablet every 8 hours by oral route. Tamiflu 75 mg capsule Take 1 capsule twice a day by oral route for 5 days. tramadol Medications Administered None recorded. Vitals Height Weight BMI Blood Pressure 5 ft 3 in 149.1 lbs 26.4 kg/m2 113/76 mm[Hg] Results Lab Results Date Name Specimen Result Interpretation Description Value Range Status Address 02/20/2019 Urinalysis, Leukocytes Negative In-House Dipstick Results: For Internal Use Only Nitrite negative In-House Results: For Internal Use Only Urobilinogen 1 In-House Results: For Internal Use Only Protein Negative In-House Results: For Internal Use Only Ph 6.0 In-House Results: For Internal Use Only Blood Negative In-House Results: For Internal Use Only Specific 1.025 In-House [place] Results: For Internal Use Only Ketone Negative [...] Influenza-like Symptoms Active 02/20/2019 Diarrhea Active 02/20/2019 Candidiasis of Vagina Active Encounter Candidiasis of Skin Active Encounter Diabetes Mellitus Active Encounter Pharyngitis Active Encounter Upper Respiratory Infection Active Encounter Sinusitis Active Encounter Dental Abscess Active Encounter Procedures Date Name Performed by 11/28/2017 Appendectomy Information not available 04/03/1997 Anesth Tubal Ligation Information not available 02/20/2019 MAMMO, Screening, Bilateral [facility] (Imaging ) [facility] [place] [address] [place] [address] (Work Place) Vaccine List None recorded. Social History Tobacco Smoking Status Light Tobacco Smoker (2 PPW) Past Encounters 02/20/2019 Gynecologic Examination; Screening for Malignant Neoplasm of Breast; Influenza- like Symptoms; Diarrhea JOHANNA Cho: [address], [place] [address] , Ph. [phone] History of Present Illness Note: 54 y.o. pleasant female presents for Well woman visit. Pt denies any breast concerns; no skin changes, lumps, nipple discharge, or pain. Continues with menses lasting approx 5-7 days heavy, cramping, and bloating, rosas. Menses occurring every 1-3 months over past year. Denies hot flashes or night sweats. no pain with intercourse. Denies discharge, odor, irritations. Denies any changes to bowel or bladder function. Tubal ligation control. She has not had baseline MMG or colonoscopy.She reports hx of DM type 2 but has not had any testing or metformin in years.
Patient has complaints of flu-like symptoms of colds and muscle aches, accompanied with stomach cramps and diarrhea for the past few days. Pt reports to have about 4 bouts of diarrhea since last night. 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: Patient Constitutional: Constitutional: no fever, no significant weight gain, no significant weight loss; flu-like symptoms of colds and muscle aches; also with stomach cramps and diarrhea Skin: Skin: no abnormal moles, no rashes Eyes: Eyes: no irritation, no vision changes ENMT: ENMT: no hearing loss, no ear pain, no nose/sinus problems, no sore throat, no snoring, no dry mouth, no mouth ulcers Respiratory: Respiratory: no dyspnea / shortness of breath, no cough, no sputum production, no hemoptysis, no wheezing Cardiovascular: Cardiovascular: no chest pain, no palpitations, no orthopnea Gastrointestinal: Gastrointestinal: no heartburn, no dysphagia, no nausea, no vomiting, no bowel movement changes, no constipation, no rectal bleeding, abdominal pain, diarrhea Genitourinary: Genitourinary: no hematuria, no abnormal bleeding, no flank pain, no trouble urinating, no incontinence, no rash, no lesion, no discharge, no vaginal odor, no vaginal itching; vaginal pressure and intermittent burning sensation of vagina Endocrine: Menstrual: no menstrual problems, no PMDD symptoms. Menopausal: no menopausal symptoms. Sexual: no sexual problems Musculoskeletal: Musculoskeletal: no muscle aches, no muscle weakness, no arthralgias/joint pain, no back pain Neurological: Neurologic: no headaches, no dizziness, no LOC, no weakness, no numbness, no seizures Psychological: Psych: no depression, no alcoholism, no sleep disturbances Physical Exam Annual Biometric Fingerprinting Technician Reported By: Patient Deli Worker: Deli Worker: present Constitutional: General Appearance: healthy-appearing, well-nourished, well-developed Psychiatric: Orientation: to time, to place, to person. Mood and Affect: active and alert, normal mood, normal affect Skin: Appearance: no rashes, no lesions Neck: Neck: supple, trachea midline, no masses, FROM. Thyroid: no enlargement, no nodules, non-tender Lungs: Respiratory Effort: no intercostal retractions, no accessory muscle usage. Auscultation: clear to auscultation, no wheezing, no rales/crackles, no rhonchi Cardiovascular: Auscultation: RRR, no murmur. Peripheral Vascular: no LLE edema, no RLE edema, no varicosities, no calf tenderness, no palpable cords, pedal pulses intact Abdomen: Auscultation/Inspection/Palpation: normal bowel sounds, soft, non-distended, no tenderness, no hepatomegaly, no splenomegaly, no masses, no CVA tenderness. Hernia: none palpated Breast: Inspection/Palpation: no skin changes, no abnormal secretions, nipple appearance normal, no tenderness, no distinct masses Female Genitalia: Vulva: no masses, no atrophy, no lesions. Vagina: no tenderness, no erythema, no abnormal vaginal discharge, no vesicle(s) or ulcers, no cystocele, no rectocele. Cervix: grossly normal, no discharge, no cervical motion tenderness, sample taken for a Pap smear. Uterus: normal size, normal shape, midline, no uterine prolapse, mobile, non-tender. Bladder/Urethra: normal meatus, no urethral discharge, no urethral mass, bladder non distended. Adnexa/Parametria: no parametrial tenderness, no parametrial mass, no adnexal tenderness, no ovarian mass Lymph Nodes: Palpation: non tender submandibular nodes, non tender axillary nodes, non tender inguinal nodes Rectal Exam: Rectum: normal perianal skin
--- NOTE | 2019-04-14 15:28 | EDPHYS ---
Physician Documentation [facility] Name: Joanna Benavidez Age: 54 yrs Sex: Female : 1965 Arrival Date: 04/14/2019 Time: 14:27 Bed 14 Private MD: ED Physician Chadwick Paul HPI: 04/14 15:27 This 54 yrs old Female presents to ER via Ambulatory with complaints of Chest kb Congestion, Sore Throat. 15:27 The patient or guardian reports cough, that is intermittent, described as moderate, kb with no sputum, flu symptoms. Onset: The symptoms/episode began/occurred 5 day(s) ago. Severity of symptoms: At their worst the symptoms were moderate, in the emergency department the symptoms are unchanged. Modifying factors: The symptoms are alleviated by nothing, the symptoms are aggravated by nothing. Associated signs and symptoms: Pertinent positives: rhinorrhea, sore throat, Pertinent negatives: chest pain, diarrhea, ear ache, fever, nausea, vomiting. The patient has not experienced similar symptoms in the past. The patient has not recently seen a physician. 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 - Social history:: Smoking status: . - Ebola Screening: : Patient denies travel to an Ebola-affected area in the 21 days before illness onset. ROS: 15:23 Neck: Negative for injury, pain, and swelling, Cardiovascular: Negative for chest pain, kb palpitations, and edema, Abdomen/GI: Negative for abdominal pain, nausea, vomiting, diarrhea, and constipation, Back: Negative for injury and pain, MS/Extremity: Negative for injury and deformity, Skin: Negative for injury, rash, and discoloration, Neuro: Negative for headache, weakness, numbness, tingling, and seizure. 15:23 Constitutional: Positive for body aches, chills, malaise. 15:23 ENT: Positive for rhinorrhea, sinus congestion, sore throat. 15:23 Respiratory: Positive for cough, Negative for dyspnea on exertion, hemoptysis, orthopnea, pleurisy, shortness of breath, sputum production, wheezing. Exam: 15:26 Constitutional: This is a well developed, well nourished patient who is awake, alert, kb and in no acute distress. Head/Face: Normocephalic, atraumatic. ENT: Nares patent. No nasal discharge, no septal abnormalities noted. Tympanic membranes are normal and external auditory canals are clear. Oropharynx with no redness, swelling, or masses, exudates, or evidence of obstruction, uvula midline. Mucous membranes moist. Neck: Trachea midline, no thyromegaly or masses palpated, and no cervical lymphadenopathy. Supple, full range of motion without nuchal rigidity, or vertebral point tenderness. No Meningismus. Chest/axilla: Normal chest wall appearance and motion. Nontender with no deformity. No lesions are appreciated. Cardiovascular: Regular rate and rhythm with a normal S1 and S2. No gallops, murmurs, or rubs. Normal PMI, no JVD. No pulse deficits. Respiratory: Lungs have equal breath sounds bilaterally, clear to auscultation and percussion. No rales, rhonchi or wheezes noted. No increased work of breathing, no retractions or nasal flaring. Abdomen/GI: Soft, non-tender, with normal bowel sounds. No distension or tympany. No guarding or rebound. No evidence of tenderness throughout. Skin: Warm, dry with normal turgor. Normal color with no rashes, no lesions, and no evidence of cellulitis. MS/ Extremity: Pulses equal, no cyanosis. Neurovascular intact. Full, normal range of motion. Neuro: Awake and alert, GCS 15, oriented to person, place, time, and situation. Cranial nerves II-XII grossly intact. Motor strength 5/5 in all extremities. Sensory grossly intact. Cerebellar exam normal. Normal gait. Vital Signs: 14:35 BP 122 / 55; Pulse 65; Resp 15; Temp 98.2(TE); Pulse Ox 98% on R/A; Weight 67.13 kg; ss Height 5 ft. 3 in. (160.02 cm); Pain 6/10; 15:26 BP 103 / 61; Pulse 64; Resp 17; Temp 98(O); Pulse Ox 96% on R/A; tw2 14:35 Body Mass Index 26.22 (67.13 kg, 160.02 cm) ss MDM: 14:39 Patient medically screened. kb 15:23 Data reviewed: vital signs, nurses notes. Data interpreted: Pulse oximetry: on room air kb is 98 %. Interpretation: normal. Counseling: I had a detailed discussion with the patient and/or guardian regarding: the historical points, exam findings, and any diagnostic results supporting the discharge/admit diagnosis, lab results, the need for outpatient follow up, a family practitioner, to return to the emergency department if symptoms worsen or persist or if there are any questions or concerns that arise at home. 04/14 14:39 Order name: Flu; Complete Time: 15:19 kb 04/14 14:39 Order name: Strep; Complete Time: 15:09 kb 04/14 15:11 Order name: Throat Culture EDMS Administered Medications: No medications were administered Disposition: 16:23 Co-signature as Attending Physician, Chadwick Paul MD. rn Disposition: 04/14/19 15:28 Discharged to Home. Impression: Acute upper respiratory infection, unspecified. - Condition is Stable. - Discharge Instructions: Upper Respiratory Infection, Adult, [id number], Viral Respiratory Infection, [id number]. - Medication Reconciliation Form, Thank You Letter, Antibiotic Education, Prescription Opioid Use, Work release form form. - Follow up: Private Physician; When: 2 - 3 days; Reason: Recheck today's complaints, Continuance of care, Re-evaluation by your physician. Follow up: Emergency Department; When: As needed; Reason: Worsening of condition. Signatures: Dispatcher [employer] EDNJ Dayanara [place], FIELD APPRAISER-C FIELD APPRAISER-Ckb Chadwick Paul MD MD rn Wise, Tara, RN RN tw2 Corrections: (The following items were deleted from the chart) 15:34 15:28 04/14/2019 15:28 Discharged to Home. Impression: Acute upper respiratory tw2 infection, unspecified. Condition is Stable. Forms are Work release form, Medication Reconciliation Form, Thank You Letter, Antibiotic Education, Prescription Opioid Use. Follow up: Private Physician; When: 2 - 3 days; Reason: Recheck today's complaints, Continuance of care, Re-evaluation by your physician. Follow up: Emergency Department; When: As needed; Reason: Worsening of condition. kb
--- NOTE | 2019-04-14 15:28 | ER ---
Nurse's Notes [facility] Name: Joanna Benavidez Age: 54 yrs Sex: Female : 1965 Arrival Date: 04/14/2019 Time: 14:27 Bed 14 Private MD: Diagnosis: Acute upper respiratory infection, unspecified Presentation: 04/14 14:35 Presenting complaint: Patient states: Sore throat, cough, chest burning and nasal ss congestion that began 4 days ago. Transition of care: patient was not received from another setting of care. Onset of symptoms was April 10, 2019. Risk Assessment: Do you want to hurt yourself or someone else? Patient reports no desire to harm self or others. Initial Sepsis Screen: Does the patient meet any 2 criteria? No. Patient's initial sepsis screen is negative. Does the patient have a suspected source of infection? No. Patient's initial sepsis screen is negative. Care prior to arrival: None. 14:35 Method Of Arrival: Ambulatory ss 14:35 Acuity: FLORENTINO 4 ss Triage Assessment: 14:38 General: Appears in no apparent distress. Behavior is calm, cooperative, appropriate tw2 for age. Pain: Complains of pain in uvula, left aspect of posterior pharynx and right aspect of posterior pharynx. 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 - Social history:: Smoking status: . - Ebola Screening: : Patient denies travel to an Ebola-affected area in the 21 days before illness onset. Screenin:35 Abuse screen: Denies threats or abuse. Nutritional screening: No deficits noted. tw2 Tuberculosis screening: No symptoms or risk factors identified. Fall Risk None identified. Assessment: 14:39 General: Appears in no apparent distress. Behavior is calm, cooperative, appropriate tw2 for age. Neuro: Level of Consciousness is awake, alert, obeys commands, Oriented to person, place, time, situation. Cardiovascular: Patient's skin is warm and dry. Respiratory: Reports cough that is Airway is patent Respiratory effort is even, unlabored, Respiratory pattern is regular, symmetrical. GI: No signs and/or symptoms were reported involving the gastrointestinal system. : No signs and/or symptoms were reported regarding the genitourinary system. EENT: Reports nasal congestion nasal discharge. Derm: No signs and/or symptoms reported regarding the dermatologic system. Musculoskeletal: Range of motion: intact in all extremities. 15:26 Reassessment: Patient appears in no apparent distress at this time. No changes from tw2 previously documented assessment. Patient and/or family updated on plan of care and expected duration. Pain level reassessed. Patient is alert, oriented x 3, equal unlabored respirations, skin warm/dry/pink. Vital Signs: 14:35 BP 122 / 55; Pulse 65; Resp 15; Temp 98.2(TE); Pulse Ox 98% on R/A; Weight 67.13 kg; ss Height 5 ft. 3 in. (160.02 cm); Pain 6/10; 15:26 BP 103 / 61; Pulse 64; Resp 17; Temp 98(O); Pulse Ox 96% on R/A; tw2 14:35 Body Mass Index 26.22 (67.13 kg, 160.02 cm) ED Course: 14:27 Patient arrived in ED. as 14:35 Arm band placed on left wrist. 14:36 Triage completed. 14:37 Dayanara [place] FNP-C is [facility]. kb 14:37 Chadwick Paul MD is Attending Physician. kb 14:38 Mehreen Palmer RN is Primary Nurse. tw2 14:38 Bed in low position. Call light in reach. tw2 14:44 Strep Sent. tw2 14:45 Flu Sent. tw2 15:34 No provider procedures requiring assistance completed. Patient did not have IV access tw2 during this emergency room visit. Administered Medications: No medications were administered Outcome: 15:28 Discharge ordered by . kb 15:34 Discharged to home ambulatory. tw2 15:34 Condition: stable 15:34 Discharge instructions given to patient, Instructed on discharge instructions, follow up and referral plans. Demonstrated understanding of instructions, follow-up care. 15:34 Patient left the ED. tw2 Signatures: Dayanara Weinberg FNP-C FNP-Daija Lee Shelby, RN RN Spencer Mehreen, RN RN tw2
[2019-04-14 15:56] VITALS: BP 103/61; TEMP 98; O2SAT 96
== END 2019-04-14 15:34 | disposition home or self-care (01) ==
LOC: ER 14:25
DX: J06.9 Acute upper respiratory infection, unspecified (principal); Z88.6 Allergy status to analgesic agent; Z88.8 Allergy status to other drugs, medicaments and biological substances
CPT/HCPCS: 87070; 87081; 87804; 99283

== ENCOUNTER 2019-04-20 13:15 | Emergency (ER) | payer BC, OTHER ==
[2019-04-20] MEDS ORDERED: DIAZEPAM 5 MG TABLET ONE (14:34)
[2019-04-20] MEDS ORDERED: LIDOCAINE 4% PATCH ONE (14:39)
[2019-04-20] MEDS ORDERED: LIDOCAINE 4% PATCH TD ONE (15:00)
--- NOTE | 2019-04-20 15:04 | RAD REPORT ---
EXAM DESCRIPTION: CT - Head C Spine Mpr Wo Con - 04/20/2019 2:42 pm CLINICAL HISTORY: Head and neck injury status post fall. Head and neck pain COMPARISON: December 2018 TECHNIQUE: Computed axial tomography of the head and cervical spine was obtained. Sagittal and coronal reconstruction was performed. All CT scans are performed using dose optimization technique as appropriate and may include automated exposure control or mA/KV adjustment according to patient size. FINDINGS: An intracranial bleed is not seen. The ventricles are normal in caliber. An extra-axial fl uid collection is not noted.Fluid within the visualized sinuses and mastoids is not seen A cervical fracture is not visualized. No dislocation is noted. Spondylosis C5-6 IMPRESSION: No acute intracranial abnormality is seen. A cervical fracture is not visualized. If the patient continues to have symptoms to suggest intracra nial /spinal cord pathology then MRI would be recommended
--- NOTE | 2019-04-20 15:10 | RAD REPORT ---
EXAM DESCRIPTION: CT - Facial Bones W/ Mpr - 04/20/2019 2:42 pm CLINICAL HISTORY: Facial injury status post fall. Facial pain COMPARISON: none TECHNIQUE: Computed axial tomography of the face was obtained. Coronal and sagittal reconstruction w as performed. All CT scans are performed using dose optimization technique as appropriate and may include automated exposure control or mA/KV adjustment according to patient size. FINDINGS: A fractured right maxillary tooth is present. No bony fracture is not seen. A TMJ dislocation is not noted. The globes are intact. Fluid within the sinuses is not seen. IMPRESSION: Fractured right maxillary tooth
--- NOTE | 2019-04-20 15:26 | RAD REPORT ---
EXAM DESCRIPTION: RAD - Shoulder Left 2 View - 04/20/2019 3:08 pm CLINICAL HISTORY: Left shoulder pain status post fall FINDINGS: No fracture or dislocation is seen.
--- NOTE | 2019-04-20 15:28 | RAD REPORT ---
EXAM DESCRIPTION: RAD - Thoracic Spine Ap/Lat - 04/20/2019 3:08 pm CLINICAL HISTORY: Back pain FINDINGS: No dislocation. Osteoporosis. Mild spondylosis No fracture is seen
--- NOTE | 2019-04-20 15:40 | EDPHYS ---
Physician Documentation [facility] – [place], [place] Name: Joanna Benavidez Age: 54 yrs Sex: Female : 1965 Arrival Date: 04/20/2019 Time: 13:20 Bed 10 Private MD: ED Physician Klever Urena HPI: 04/20 14:45 This 54 yrs old Female presents to ER via Ambulatory with complaints of Fall pm1 Injury. 14:45 Details of fall: The patient fell from an upright position, while standing. Onset: The pm1 symptoms/episode began/occurred today. Associated injuries: The patient sustained injury to the head, contusion, left side of face, left shoulder pain, neck and upper back pain, and left buttocks pain. Severity of symptoms: in the emergency department the symptoms are unchanged. prior left shoulder injury 2 years ago. Patient was reaching for a box and slipped resulting in fall against boxes. Patient hit the left side of face and left shoulder against the boxes. 14:45 No LOC, nausea, voimting. 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 - Social history:: Smoking status: . - Ebola Screening: : Patient negative for fever greater than or equal to 101.5 degrees Fahrenheit, and additional compatible Ebola Virus Disease symptoms Patient denies exposure to infectious person Patient denies travel to an Ebola-affected area in the 21 days before illness onset No symptoms or risks identified at this time. ROS: 14:45 Constitutional: Negative for fever, chills, and weight loss, Eyes: Negative for injury, pm1 pain, redness, and discharge, ENT: Negative for injury, pain, and discharge. 14:45 Cardiovascular: Negative for chest pain, palpitations, and edema, Respiratory: Negative for shortness of breath, cough, wheezing, and pleuritic chest pain, Abdomen/GI: Negative for abdominal pain, nausea, vomiting, diarrhea, and constipation. 14:45 Skin: Negative for injury, rash, and discoloration, Neuro: Negative for headache, weakness, numbness, tingling, and seizure. 14:45 Neck: Positive for tenderness, of the left trapezius and left scapular area. 14:45 Back: Positive for of the left trapezius and left scapular area, pain. 14:45 MS/extremity: Positive for pain, of the anterior aspect of left shoulder. Exam: 14:45 Constitutional: This is a well developed, well nourished patient who is awake, alert, pm1 and in no acute distress. 14:45 Eyes: Pupils equal round and reactive to light, extra-ocular motions intact. Lids and lashes normal. Conjunctiva and sclera are non-icteric and not injected. Cornea within normal limits. Periorbital areas with no swelling, redness, or edema. ENT: Nares patent. No nasal discharge, no septal abnormalities noted. Tympanic membranes are normal and external auditory canals are clear. Oropharynx with no redness, swelling, or masses, exudates, or evidence of obstruction, uvula midline. Mucous membranes moist. 14:45 Chest/axilla: Normal chest wall appearance and motion. Nontender with no deformity. No lesions are appreciated. Cardiovascular: Regular rate and rhythm with a normal S1 and S2. No gallops, murmurs, or rubs. Normal PMI, no JVD. No pulse deficits. Respiratory: Lungs have equal breath sounds bilaterally, clear to auscultation and percussion. No rales, rhonchi or wheezes noted. No increased work of breathing, no retractions or nasal flaring. Abdomen/GI: Soft, non-tender, with normal bowel sounds. No distension or tympany. No guarding or rebound. No evidence of tenderness throughout. 14:45 Skin: Warm, dry with normal turgor. Normal color with no rashes, no lesions, and no evidence of cellulitis. 14:45 Head/face: Noted is no obvious of injury or deformity except contusion, that is superficial, of the left ear and left cheek. 14:45 Neck: External neck: tenderness, of the left trapezius. 14:45 Back: vertebral tenderness, is not appreciated, muscle spasm, is appreciated in the left scapular area. 14:45 Musculoskeletal/extremity: Extremities: grossly normal except: noted in the anterior aspect of left shoulder: tenderness, There is no evidence of decreased ROM, deformity. 14:45 Neuro: Orientation: is normal, Motor: is normal, moves all fours, Sensation: is normal, no obvious gross deficits. Vital Signs: 13:35 BP 112 / 70; Pulse 80; Resp 16; Temp 97.9; Pulse Ox 98% on R/A; Weight 67.13 kg; Height iw 5 ft. 3 in. (160.02 cm); Pain 8/10; 13:35 Body Mass Index 26.22 (67.13 kg, 160.02 cm) iw MDM: 13:53 Patient medically screened. pm1 15:36 Data reviewed: vital signs. Data interpreted: Pulse oximetry: on room air is 98 %. pm1 Interpretation: normal. Counseling: I had a detailed discussion with the patient and/or guardian regarding: the historical points, exam findings, and any diagnostic results supporting the discharge/admit diagnosis, radiology results, the need for outpatient follow up, to return to the emergency department if symptoms worsen or persist or if there are any questions or concerns that arise at home. 04/20 14:21 Order name: CT Head C Spine; Complete Time: 15:27 pm1 04/20 14:21 Order name: CT Facial Bones W/O Con; Complete Time: 15:27 pm1 04/20 14:21 Order name: Shoulder Left (2 View) XRAY; Complete Time: 15:27 pm1 04/20 14:45 Order name: Spine Thoracic Ap/Lat XRAY; Complete Time: 15:35 pm1 04/20 15:46 Order name: Sling; Complete Time: 16:09 pm1 Administered Medications: 15:21 Drug: Valium 5 mg Route: PO; iw 15:21 Drug: Lidoderm 5 % (700 mg/patch) 1 patches Route: Topical; Site: affected area; iw Disposition: 18:21 Co-signature as Attending Physician, Klever Urena MD. ma2 Disposition: 04/20/19 15:40 Discharged to Home. Impression: Fall on same level, unspecified, Pain in left shoulder, Strain of muscle, fascia and tendon at neck level, Contusion of unspecified part of head - left cheek. - Condition is Stable. - Discharge Instructions: Muscle Strain, Musculoskeletal Pain, Shoulder Pain, How to Use a Sling. - Prescriptions for Lidoderm 5 % Topical adhesive patch,medicated - apply 1 patch by TRANSDERMAL route once daily As needed; 30 Transdermal Patch. Tylenol- Codeine #3 300-30 mg Oral Tablet - take 2 tablets by ORAL route every 6 hours As needed; 20 tablet. - Work release form, Medication Reconciliation Form, Thank You Letter, Antibiotic Education, Prescription Opioid Use form. - Follow up: Emergency Department; When: As needed; Reason: Worsening of condition. Follow up: Private Physician; When: 2 - 3 days; Reason: Recheck today's complaints, Continuance of care, Re-evaluation by your physician. - Problem is new. - Symptoms have improved. Signatures: Dispatcher [employer] EDKelly Clay RN RN iw Hernan Simpson NP BOOKY pm1 Klever Urena MD MD ma2 Corrections: (The following items were deleted from the chart) 16:09 15:40 04/20/2019 15:40 Discharged to Home. Impression: Fall on same level, unspecified; iw Pain in left shoulder; Strain of muscle, fascia and tendon at neck level; Contusion of unspecified part of head - left cheek. Condition is Stable. Forms are Medication Reconciliation Form, Thank You Letter, Antibiotic Education, Prescription Opioid Use. Follow up: Emergency Department; When: As needed; Reason: Worsening of condition. Follow up: Private Physician; When: 2 - 3 days; Reason: Recheck today's complaints, Continuance of care, Re-evaluation by your physician. Problem is new. Symptoms have improved. pm1
--- NOTE | 2019-04-20 15:40 | ER ---
Nurse's Notes [facility] Name: Joanna Benavidez Age: 54 yrs Sex: Female : 1965 Arrival Date: 04/20/2019 Time: 13:20 Bed 10 Private MD: Diagnosis: Fall on same level, unspecified;Pain in left shoulder;Strain of muscle, fascia and tendon at neck level;Contusion of unspecified part of head-left cheek Presentation: 04/20 13:32 Presenting complaint: Patient states: fell while in freezer at work, boxes were falling iw over and she tried to catch it, now has pain to left arm, neck and back. Care prior to arrival: None. 13:32 Acuity: FLORENTINO 4 iw 13:32 Method Of Arrival: Ambulatory iw 13:34 Transition of care: patient was not received from another setting of care. Onset of iw symptoms was April 20, 2019. Risk Assessment: Do you want to hurt yourself or someone else? Patient reports no desire to harm self or others. Initial Sepsis Screen: Does the patient meet any 2 criteria? No. Patient's initial sepsis screen is negative. Does the patient have a suspected source of infection? No. Patient's initial sepsis screen is negative. 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 - Social history:: Smoking status: . - Ebola Screening: : Patient negative for fever greater than or equal to 101.5 degrees Fahrenheit, and additional compatible Ebola Virus Disease symptoms Patient denies exposure to infectious person Patient denies travel to an Ebola-affected area in the 21 days before illness onset No symptoms or risks identified at this time. Screenin:37 Abuse screen: Denies threats or abuse. Denies injuries from another. Nutritional iw screening: No deficits noted. Tuberculosis screening: No symptoms or risk factors identified. Fall Risk Fall in past 12 months (25 points). Assessment: 13:36 General: Appears in no apparent distress. Behavior is calm, cooperative. Pain: iw Complains of pain in back, left arm and neck Pain currently is 8 out of 10 on a pain scale. Neuro: Level of Consciousness is awake, alert, obeys commands, Oriented to person, place, time, situation, Moves all extremities. Full function. Cardiovascular: Patient's skin is warm and dry. Respiratory: Respiratory effort is even, unlabored, Respiratory pattern is regular, symmetrical. Derm: Skin is intact, is healthy with good turgor. Musculoskeletal: Range of motion: intact in all extremities. Vital Signs: 13:35 BP 112 / 70; Pulse 80; Resp 16; Temp 97.9; Pulse Ox 98% on R/A; Weight 67.13 kg; Height iw 5 ft. 3 in. (160.02 cm); Pain 8/10; 13:35 Body Mass Index 26.22 (67.13 kg, 160.02 cm) iw ED Course: 13:20 Patient arrived in ED. mr 13:34 Triage completed. iw 13:35 Arm band placed on. iw 13:36 Kelly Santiago, TATUM is Primary Nurse. iw 13:37 Hernan Simpson NP is PHCP. pm1 13:37 Klever Urena MD is Attending Physician. pm1 13:37 No provider procedures requiring assistance completed. Patient did not have IV access iw during this emergency room visit. 13:40 Patient has correct armband on for positive identification. iw 14:42 CT Head C Spine In Process Unspecified. EDMS 14:42 CT Facial Bones W/O Con In Process Unspecified. EDMS 15:07 Shoulder Left (2 View) XRAY In Process Unspecified. EDMS 15:07 Spine Thoracic Ap/Lat XRAY In Process Unspecified. EDMS Administered Medications: 15:21 Drug: Valium 5 mg Route: PO; iw 15:21 Drug: Lidoderm 5 % (700 mg/patch) 1 patches Route: Topical; Site: affected area; iw Outcome: 15:40 Discharge ordered by . pm1 16:08 Discharged to home ambulatory, with family. iw 16:08 Condition: good 16:08 Discharge instructions given to patient, family, Instructed on discharge instructions, follow up and referral plans. medication usage, Demonstrated understanding of instructions, follow-up care, medications, Prescriptions given X 2. 16:09 Patient left the ED. iw Signatures: Dispatcher [employer] YUAN PalmerDulce garcia mr Kelly Santiago, RN RN iw Calvin, Hernan, LOOM SETTER FOURDRINIER LOOM SETTER FOURDRINIER pm1
[2019-04-20 16:37] VITALS: BP 112/70; TEMP 97.9; O2SAT 98
== END 2019-04-20 16:09 | disposition home or self-care (01) ==
LOC: ER 13:15
DX: S16.1XXA Strain of muscle, fascia and tendon at neck level, initial encounter (principal); S00.83XA Contusion of other part of head, initial encounter; W01.0XXA Fall on same level from slipping, tripping and stumbling without subsequent striking against object, initial encounter; Y93.89 Activity, other specified; Y92.9 Unspecified place or not applicable; Z88.6 Allergy status to analgesic agent
CPT/HCPCS: 70450; 70486; 72070; 72125; 76377; 99283

== ENCOUNTER 2019-06-29 14:20 | Emergency (ER) | payer BC ==
[2019-06-29] MEDS ORDERED: BUPIVACAINE 0.5% PF 10 ML VIAL ONE (14:38)
[2019-06-29] MEDS ORDERED: LIDOCAINE 1% MPF 5 ML VIAL ONE (14:38)
[2019-06-29] MEDS ORDERED: TETANUS & DIPHTHERIA TOX,ADULT 0.5 ML VIAL ONE (14:38)
--- NOTE | 2019-06-29 15:30 | EDPHYS ---
Physician Documentation [facility] Name: Joanna Benavidez Age: 54 yrs Sex: Female : 1965 Arrival Date: 06/29/2019 Time: 14:22 Bed 25 Private MD: ED Physician Maxime Stark HPI: 06/28 14:39 This 54 yrs old Female presents to ER via Ambulatory with complaints of pm1 Laceration To Leg. 14:39 The patient has a laceration related to: fall occurred at home, The injury was Patient pm1 was walking up her stairs at her home and slipped due to dogs running around her and she fell on her right side and cut her right lower leg. Patient did not realize that she cut herself and was able to walk without any difficulty. She only noticed the cut once she had some blood on her slipper. No head injury, headache, neck pain, or LOC. The laceration(s) is(are) located on the anterior aspect of right ankle. Onset: The symptoms/episode began/occurred just prior to arrival. Associated signs and symptoms: Pertinent negatives: deformity, numbness distal to injury, suspected foreign body. The patient has not experienced similar symptoms in the past. The patient has been recently seen by a physician: with different complaint(s), Carpal tunnel repair to left wrist. 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 - Social history:: Smoking status: Patient denies any tobacco usage or history of. ROS: 14:39 Constitutional: Negative for fever, chills, and weight loss, Neck: Negative for injury, pm1 pain, and swelling, Cardiovascular: Negative for chest pain, palpitations, and edema, Respiratory: Negative for shortness of breath, cough, wheezing, and pleuritic chest pain, Abdomen/GI: Negative for abdominal pain, nausea, vomiting, diarrhea, and constipation, Back: Negative for injury and pain. 14:39 Neuro: Negative for headache, weakness, numbness, tingling, and seizure. 14:39 MS/extremity: Positive for laceration, of the anterior aspect of right ankle, Negative for decreased range of motion, deformity, paresthesias, tingling. 14:39 Skin: Positive for laceration(s), of the anterior aspect of right ankle. Exam: 14:39 Constitutional: This is a well developed, well nourished patient who is awake, alert, pm1 and in no acute distress. Head/Face: Normocephalic, atraumatic. Chest/axilla: Normal chest wall appearance and motion. Nontender with no deformity. No lesions are appreciated. Cardiovascular: Regular rate and rhythm with a normal S1 and S2. No gallops, murmurs, or rubs. Normal PMI, no JVD. No pulse deficits. Respiratory: Lungs have equal breath sounds bilaterally, clear to auscultation and percussion. No rales, rhonchi or wheezes noted. No increased work of breathing, no retractions or nasal flaring. Abdomen/GI: Soft, non-tender, with normal bowel sounds. No distension or tympany. No guarding or rebound. No evidence of tenderness throughout. Back: No spinal tenderness. No costovertebral tenderness. Full range of motion. 14:39 Musculoskeletal/extremity: Extremities: grossly normal except: noted in the anterior aspect of right ankle: laceration. 14:39 Skin: Appearance: normal except for affected area, injury, laceration(s), of the anterior aspect of right ankle. 14:39 Neuro: Orientation: is normal, Motor: is normal, moves all fours. Vital Signs: 14:29 BP 128 / 71; Pulse 70; Resp 18; Temp 98.0(TE); Pulse Ox 98% on R/A; Weight 68.49 kg; ss Height 5 ft. 3 in. (160.02 cm); Pain 9/10; 15:45 Resp 16; Pain 3/10; ll1 14:29 Body Mass Index 26.75 (68.49 kg, 160.02 cm) ss Laceration: 15:27 Wound Repair of 4cm ( 1.6in ) subcutaneous laceration to anterior aspect of right pm1 ankle. Irregularly shaped.. Distal neuro/vascular/tendon intact. Anesthesia: Local anesthetic administered with 4 mls of Lido/Marcaine. Wound prep: Extensive cleansing with hibiclenz by me, Wound irrigation with saline by me, Wound explored extensively, Copious irrigation. Skin closed with 6 3-0 Ethilon using simple sutures and sterile technique. Subcutaneous tissue closed with 4 4-0 Vicryl using simple sutures and sterile technique. Dressed with Neosporin, 4x4's. Patient tolerated well. MDM: 14:23 Patient medically screened. pm1 14:43 ED course: Patient refused x-ray. Patient refused because she was walking on her right pm1 leg without any problem after the laceration. 15:27 Data reviewed: vital signs. Data interpreted: Pulse oximetry: on room air is 98 %. pm1 Interpretation: normal. Counseling: I had a detailed discussion with the patient and/or guardian regarding: the historical points, exam findings, and any diagnostic results supporting the discharge/admit diagnosis, the need for outpatient follow up, a family practitioner, suture removal in 10-14 days, to return to the emergency department if symptoms worsen or persist or if there are any questions or concerns that arise at home. 06/28 14:29 Order name: Prolene, Sutures; Complete Time: 15:49 pm1 06/28 14:29 Order name: Dressing - Wound; Complete Time: 15:49 pm1 06/28 14:29 Order name: Gloves, Sterile; Complete Time: 15:49 pm1 06/28 14:29 Order name: Setup Suture Tray; Complete Time: 15:49 pm1 Administered Medications: 14:38 Drug: Tetanus-Diphtheria Toxoid Adult 0.5 ml {Lead Relay Tester: [employer]. Exp: ll1 09/06/2020. Lot #: [id number]. } Route: IM; Site: right deltoid; 15:50 Follow up: Response: No adverse reaction; RASS: Alert and Calm (0) [facility] 15:35 Drug: Lidocaine (1 %) 5 ml {Note: by Jd Simpson for suture repair..} Volume: 5 ml; 1 Route: Infiltration; 15:51 Follow up: Response: No adverse reaction [facility] 15:35 Drug: Bupivacaine (0.5 %) 10 ml {Note: by Jd Simpson for suture repair.} Volume: 10 ml; 1 Route: Infiltration; 15:51 Follow up: Response: No adverse reaction; RASS: Alert and Calm (0) [facility] Disposition: 03/29 13:49 Co-signature as Attending Physician, Maxime Stark MD I agree with the assessment and lai plan of care. Disposition: 06/29/19 15:29 Discharged to Home. Impression: Laceration without foreign body, right lower leg. - Condition is Stable. - Discharge Instructions: Laceration Care, Adult. - Prescriptions for Keflex 500 mg Oral Capsule - take 1 capsule by ORAL route every 8 hours for 10 days; 30 capsule. - Medication Reconciliation Form, Thank You Letter, Antibiotic Education, Prescription Opioid Use form. - Follow up: Emergency Department; When: As needed; Reason: Worsening of condition. Follow up: Private Physician; When: 10 - 14 days; Reason: Wound Recheck, Recheck today's complaints, Continuance of care, Staple/Suture removal, Re-evaluation by your physician. - Problem is new. - Symptoms have improved. Signatures: Maxime Stark MD MD cha Smirch, Shelby, RN RN Hernan Simpson NP BOX OFFICE MANAGER pm1 Fred Ward RN RN ll1 Corrections: (The following items were deleted from the chart) 06/28 15:51 15:29 06/29/2019 15:29 Discharged to Home. Impression: Laceration without foreign body, ll1 right lower leg. Condition is Stable. Forms are Medication Reconciliation Form, Thank You Letter, Antibiotic Education, Prescription Opioid Use. Follow up: Emergency Department; When: As needed; Reason: Worsening of condition. Follow up: Private Physician; When: 10 - 14 days; Reason: Wound Recheck, Recheck today's complaints, Continuance of care, Staple/Suture removal, Re-evaluation by your physician. Problem is new. Symptoms have improved. pm1
--- NOTE | 2019-06-29 15:30 | ER ---
Nurse's Notes [facility] Name: Joanna Benavidez Age: 54 yrs Sex: Female : 1965 Arrival Date: 06/29/2019 Time: 14:22 Bed 25 Private MD: Diagnosis: Laceration without foreign body, right lower leg Presentation: 06/28 14:29 Chief complaint: Patient states: Approximately 2 inch laceration to anterior R weinstein ss that occurred 1 hour ago while walking up steps. Pt states, "I didn't even notice it first, but now it hurts." No active bleeding noted at this time. Coronavirus screen: Patient denies fever greater than 100.4F, cough, shortness of breath, or difficulty breathing. Proceed with normal triage process. Ebola Screen: Patient denies exposure to infectious person. Patient denies travel to an Ebola-affected area in the 21 days before illness onset. Complicating Factors: There are no complicating factors for this patient. Initial Sepsis Screen: Does the patient meet any 2 criteria? No. Patient's initial sepsis screen is negative. Does the patient have a suspected source of infection? No. Patient's initial sepsis screen is negative. Risk Assessment: Do you want to hurt yourself or someone else? Patient reports no desire to harm self or others. 14:29 Method Of Arrival: Ambulatory ss 14:29 Acuity: FLORENTINO 4 ss 14:48 Onset of symptoms was June 29, 2019. ll1 Triage Assessment: 14:49 General: Appears in no apparent distress. Behavior is calm, cooperative. Injury ll1 Description: Laceration sustained to right leg is 2.6 to 7.5 cm long, not bleeding. 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 - Social history:: Smoking status: Patient denies any tobacco usage or history of. Screenin:47 Abuse screen: Denies threats or abuse. Nutritional screening: No deficits noted. ll1 Tuberculosis screening: No symptoms or risk factors identified. Fall Risk Fall in past 12 months (25 points). Total Calixto Fall Scale indicates Low Risk Score (25-44 pts). Fall prevention measures have been instituted. Side Rails Up X 2 Placed close to Nursing Station Frequent Obs/Assesments occuring As available Patient and Family Educated on Fall Prevention Program and strategies. Assessment: 14:46 General: Appears in no apparent distress. Behavior is calm, cooperative. Pain: ll1 Complains of pain in right leg Pain currently is 10 out of 10 on a pain scale. Quality of pain is described as aching, Pain began suddenly, Is continuous. Neuro: No deficits noted. Cardiovascular: No deficits noted. Respiratory: No deficits noted. Derm: Wound noted right lower leg Wound is laceration approximately <4 cm. No active bleeding. Reports pain. Musculoskeletal: Circulation, motion, and sensation intact. Capillary refill < 3 seconds, Reports pain in right lower leg. Vital Signs: 14:29 BP 128 / 71; Pulse 70; Resp 18; Temp 98.0(TE); Pulse Ox 98% on R/A; Weight 68.49 kg; ss Height 5 ft. 3 in. (160.02 cm); Pain 9/10; 15:45 Resp 16; Pain 3/10; ll1 14:29 Body Mass Index 26.75 (68.49 kg, 160.02 cm) ED Course: 14:22 Patient arrived in ED. mr 14:23 Hernan Smipson, HARRIET is PHCP. pm1 14:23 Maxime Stark MD is Attending Physician. pm1 14:30 Fred Ward, TATUM is Primary Nurse. ll1 14:31 Triage completed. ss 14:31 Arm band placed on right wrist. ss 14:48 Patient has correct armband on for positive identification. Bed in low position. Call ll1 light in reach. Side rails up X 1. Cardiac monitoring not applicable on this patient. 14:48 Patient did not have IV access during this emergency room visit. ll1 15:46 Dressings: Kerlix X 1; anterior aspect of right ankle non-adherent dressing x 1 ll1 anterior aspect of right ankle 4X4s X 1; anterior aspect of right ankle triple antibiotic applied to suture site. 15:48 No provider procedures requiring assistance completed. 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 Exp: ll1 09/06/2020. Lot #: [id number]. } Route: IM; Site: right deltoid; 15:50 Follow up: Response: No adverse reaction; RASS: Alert and Calm (0) 1 15:35 Drug: Lidocaine (1 %) 5 ml {Note: by Jd Simpson for suture repair..} Volume: 5 ml; ll1 Route: Infiltration; 15:51 Follow up: Response: No adverse reaction 1 15:35 Drug: Bupivacaine (0.5 %) 10 ml {Note: by Jd Simpson for suture repair.} Volume: 10 ml; ll1 Route: Infiltration; 15:51 Follow up: Response: No adverse reaction; RASS: Alert and Calm (0) 1 Outcome: 15:29 Discharge ordered by MD. pm1 15:48 Discharged to home via wheelchair. ll1 15:48 Condition: good 15:48 Discharge instructions given to patient, Instructed on discharge instructions, follow up and referral plans. medication usage, wound care, Demonstrated understanding of instructions, follow-up care, medications, wound care, Prescriptions given X 1. 15:51 Patient left the ED. 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
[2019-06-29 16:02] VITALS: BP 128/71; TEMP 98; O2SAT 98
== END 2019-06-29 15:51 | disposition home or self-care (01) ==
LOC: ER 14:20
PROC: 0JQQ0ZZ Repair Right Foot Subcutaneous Tissue and Fascia, Open Approach (ICD-10-PCS; principal; 2019-06-29)
DX: S91.011A Laceration without foreign body, right ankle, initial encounter (principal); W01.198A Fall on same level from slipping, tripping and stumbling with subsequent striking against other object, initial encounter; Y93.01 Activity, walking, marching and hiking; Y92.009 Unspecified place in unspecified non-institutional (private) residence as the place of occurrence of the external cause; Z23 Encounter for immunization; Z88.6 Allergy status to analgesic agent; Z88.8 Allergy status to other drugs, medicaments and biological substances
CPT/HCPCS: 90471; 90714; 99283

== ENCOUNTER 2020-08-03 16:28 | Emergency (ER) | payer BC, SELFPAY ==
--- OUTSIDE RECORDS SUMMARY | 2020-08-03 16:31 | XMS REPORT | Continuity of Care Document ---
:[address] 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 Lesion Polyp of Polyp of Problem Active 2018-04 [place] cervix Cervix 2-06 da 00:00: Medical 00 Group Influenza- Influenza- Problem Active 2018-04 [facility] like like 1-20 da symptoms Symptoms 00:00: Medica l 00 Group Diarrhea Diarrhea Problem Active 2018-04 [place] 1-20 da 00:00: Medical 00 Group Recurrent Recurrent Problem Active [facility] urinary Urinary 3-25 da tract Tract 00:00: Medical infection Infection 00 Grou p Migraine Migraine Problem Active 2017-04 [place] 0-17 da 00:00: Medical 00 Group 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 Papillomav 00:00: Me dical irus test irus Test 00 Grou p positive Positive Bacterial Bacterial Problem Active 2017-04 [facility] vaginosis Vaginosis 0-04 da 00:00: Medical 00 Group Gynecologi Gynecologi Problem Active 2017-04 [facility] c c 0-04 da examinatio Examinatio 00:00: Me dical n n 00 Group Venereal Venereal Problem Active 2017-04 [place] disease Disease 0-04 da screening Screening 00:00: Medi jake 00 Group Screening Screening Problem Active 2017-04 [facility] [place] for for 0-04 da malignant Malignant 00:00: [facility] jake neoplasm Neoplasm 00 Group of breast of Breast History of History of Problem Active 2017-04 [facility] diabetes Diabetes 0-04 da mellitus Mellitus 00:00: Medica l 00 Group Candidiasi Candidiasi Problem Active [facility] s of s of da vagina [facility] Candidiasi Candidiasi Problem Active [facility] s of skin s of Skin [facility] Diabetes Diabetes Problem Active [facility] [facility] mellitus Mellitus [facility] Pharyngiti Pharyngiti Problem Active [facility] s s [facility] Upper Upper Problem Active [facility] respirator Respirator da y y Medical infection Infection Grou p Sinusitis Sinusitis Problem Active [facility] Dental Dental Problem Active [place] abscess Abscess [facility] Allergies, Adverse Reactions, Alerts Allergy Allergy Status Severity Reaction(s) Onset Inactive Treating Comm ents Source Name Type Date Date Clinician Ibuprofe Allergy Active [place] [facility] to da substanc Medical e Group VIOXX Allergy Active Rash [place] to da substanc Medical e Group Social History Smoking Status Start Date Stop Date Source Light Tobacco Smoker [place] [facility] Medications Ordered Filled Start Stop Current Ordering Indication Dosage Frequency Signature Comments Components Source Medication Medication Date Date Medication? Clinician (SIG) Name Name acetaminoph acetaminoph No acetaminop [place] en 300 en 300 hen 300 da mg-codeine mg-codeine mg-codeine Medical 30 mg 30 mg 30 mg Group tablet tablet tablet diazepam 5 diazepam 5 No diazepam 5 [place] mg tablet mg tablet mg tablet da Medical Group methylpredn methylpredn No methylpred [place] isolone 4 isolone 4 nisolone 4 da mg tablets mg tablets mg tablets Medical in a dose in a dose in a dose Group pack pack pack metronidazo metronidazo No metronidaz [place] le 500 mg le 500 mg ole 500 mg da tablet Take tablet Take tablet Medical 1 tablet 1 tablet Take 1 Group every 8 every 8 tablet hours by hours by every 8 oral route. oral route. hours by oral route. orphenadrin orphenadrin No orphenadri [place] e citrate e citrate ne citrate da ER 100 mg ER 100 mg ER 100 mg Medical tablet,exte tablet,exte tablet,ext Group nded nded ended release release release oseltamivir oseltamivir No oseltamivi [place] 75 mg 75 mg r 75 mg da capsule capsule capsule Medica l Take 1 Take 1 Take 1 Group capsule capsule capsule twice a day twice a day twice a by oral by oral day by route for 5 route for 5 oral route days. days. for 5 days. tramadol tramadol No tramadol [facility] tramadol tramadol No tramadol [facility] 37.5 37.5 37.5 da mg-acetamin mg-acetamin mg-acetami Medical ophen 325 ophen 325 nophen 325 Group mg tablet mg tablet mg tablet Vital Signs Vital Name Observation Time Observation Value Comments Source BP Diastolic 2019-03-07 00:00:00 68 mm[facility]Hg[facility] Height 2019-03-07 00:00:00 63 [in_i] [facility] BMI (Body Mass 2019-03-07 00:00:00 26.8 kg/m2 [facility] Medical Index) Group BP Systolic 2019-03-07 00:00:00 123 mm[Hg[facility] Body Weight 2019-03-07 00:00:00 151.3 [lb_av] [facility] BP Diastolic 2019-02-20 00:00:00 76 mm[Hg[facility] Height 2019-02-20 00:00:00 63 [in_i] [facility] BMI (Body Mass 2019-02-20 00:00:00 26.4 kg/m2 [facility] Medical Index) Group BP Systolic 2019-02-20 00:00:00 113 mm[Hg[facility] Body Weight 2019-02-20 00:00:00 149.1 [lb_av] [facility] Procedures Procedure Date / Time Performing Clinician Source Performed MAMMO, screening, 2019-02-20 00:00:00 [place] [facility] bilateral Group Appendectomy 2017-11-28 00:00:00 [place] Id dical Group Anesth Tubal Ligation 1997-04-03 00:00:00 [facility] Plan of Care Planned Activity Planned Date Details Comments Source Diagnostic Test 2019-03-07 biopsy, cervical [facility] Pending 00:00:00 [code = biopsy, Group cervical] Diagnostic Test 2019-03-07 test, [place] [facility] Pending 00:00:00 urine [code = Group test, urine] Diagnostic Test 2019-03-07 urinalysis, [place] [facility]ical Pending 00:00:00 dipstick [code = Group urinalysis, dipstick] Encounters Start End Encounter Admission Attending Care Care Encounter Source Date/Time Date/Time Type Type Clinicians Facility Department ID 2019-03-07 2019-03-07 Mony [place] - [id number] 5 [place] 00:00:00 00:00:00 [facility] mar[facility] NP: [address], [place] [address] , Ph. [phone] 2019-02-20 2019-02-20 Mony [place] - [id number] [place] 00:00:00 00:00:00 [facility]: [address], [place] [address] , Ph. [phone] Results Test Description Test Time Test Comments Results Result Comments Source test, urine 2019-03-07 11:31:32 Test Item Value Reference Range Interpretation Comme nts Test (test code = Test) negative [facility] GroupUrinalysis macro (dipstick) panel - [id number] 11:15:48 Test Item Value Reference Range Interpretation Comments Leukocytes (test code = Leukocytes) Negative Nitrite (test code = Nitrite) negative Urobilinogen (test code = 1 Urobilinogen) Protein (test code = Protein) Negative pH (test code = pH) 6.0 Blood (test code = Blood) Negative Specific [place] (test code = 1.025 Specific [place]) Ketone (test code = Ketone) Negative Bilirubin (test code = Bilirubin) Negative Glucose (test code = Glucose) Negative Appearance (test code = Appearance) Clear Color (test code = Color) Yellow [facility] GroupUrinalysis macro (dipstick) panel - [id number] 11:15:48 Test Item Value Reference Range Interpretation Comments Leukocytes (test code = Leukocytes) Negative Nitrite (test code = Nitrite) negative Urobilinogen (test code = 1 Urobilinogen) Protein (test code = Protein) Negative pH (test code = pH) 6.0 Blood (test code = Blood) Negative Specific [place] (test code = 1.025 Specific [place]) Ketone (test code = Ketone) Negative Bilirubin (test code = Bilirubin) Negative Glucose (test code = Glucose) Negative Appearance (test code = Appearance) Clear Color (test code = Color) Yellow [facility] Hospital[facility] observation [Identifier] in Cervix by Cyto stain.thin [id number] 02:48:00ResultsFranklin County Memorial Hospital
[2020-08-03] MEDS ORDERED: HYDROCODONE/APAP 10/325 TAB ONE (20:10)
[2020-08-03] MEDS ORDERED: LIDOCAINE 4% PATCH ONE (20:11)
--- NOTE | 2020-08-03 20:52 | EDPHYS ---
Physician Documentation [facility] Name: Joanna Benavidez Age: 55 yrs Sex: Female : 1965 Arrival Date: 08/03/2020 Time: 16:31 Bed 15 Private MD: ED Physician Chadwick Paul HPI: 08/03 19:37 This 55 yrs old Female presents to ER via Ambulatory with complaints of Back pm1 Pain. 19:37 The patient presents with pain that is chronic, with no known mechanism of injury. The pm1 symptoms are located in the low back. Onset: The symptoms/episode began/occurred 1 year(s) ago. The pain radiates to the right leg and left leg. Associated signs and symptoms: Pertinent negatives: abdominal pain, dysuria, fever, urinary retention, weakness. The problem was sustained during a fall, while standing, 1 year ago. Modifying factors: the patient symptoms are aggravated by movement. Severity of symptoms: in the emergency department the symptoms are actually worse. The patient has experienced similar episodes in the past, chronically. Patient also complaining of her left shoulder pain that was injured from fall 1 year ago. 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 - Social history:: Smoking status: Patient denies any tobacco usage or history of. ROS: 19:37 Constitutional: Negative for fever, chills, and weight loss, Cardiovascular: Negative pm1 for chest pain, palpitations, and edema, Respiratory: Negative for shortness of breath, cough, wheezing, and pleuritic chest pain, Abdomen/GI: Negative for abdominal pain, nausea, vomiting, diarrhea, and constipation. 19:37 Skin: Negative for injury, rash, and discoloration, Neuro: Negative for headache, weakness, numbness, tingling, and seizure. 19:37 Back: Positive for pain at rest, pain with movement, of the low back area. 19:37 MS/extremity: Positive for pain, of the anterior aspect of left shoulder and posterior aspect of left shoulder. Exam: 19:37 Constitutional: This is a well developed, well nourished patient who is awake, alert, pm1 and in no acute distress. Head/Face: Normocephalic, atraumatic. Neck: Trachea midline, no thyromegaly or masses palpated, and no cervical lymphadenopathy. Supple, full range of motion without nuchal rigidity, or vertebral point tenderness. No Meningismus. 19:37 Skin: Warm, dry with normal turgor. Normal color with no rashes, no lesions, and no evidence of cellulitis. MS/ Extremity: Pulses equal, no cyanosis. Neurovascular intact. Full, normal range of motion. 19:37 Cardiovascular: Rate: normal, Rhythm: regular, Pulses: no pulse deficits are appreciated, Edema: is not appreciated. 19:37 Respiratory: Exam negative for acute changes, respiratory distress, shortness of breath. 19:37 Abdomen/GI: Inspection: abdomen appears normal, Palpation: abdomen is soft and non-tender, in all quadrants. 19:37 Back: normal spinal alignment noted, vertebral tenderness, is appreciated at lumbar spine, muscle spasm, is appreciated in the left low back and right low back. 19:37 Neuro: Orientation: is normal, Mentation: is normal, Motor: is normal, moves all fours, Sensation: is normal, no obvious gross deficits, Gait: is steady, at a normal pace, without difficulty. Vital Signs: 16:55 BP 128 / 91; Pulse 96; Resp 18; Temp 97.8; Pulse Ox 99% on R/A; Weight 70.31 kg; Height em 5 ft. 3 in. (160.02 cm); Pain 9/10; 20:00 BP 132 / 82; Pulse 79; Resp 18; Temp 98.1; Pulse Ox 99% ; Pain 8/10; jv1 21:00 BP 115 / 73; Pulse 95; Resp 18; Temp 98.2; Pulse Ox 99% ; Pain 4/10; jv1 16:55 Body Mass Index 27.46 (70.31 kg, 160.02 cm) em MDM: 19:15 Patient medically screened. pm1 19:35 Data reviewed: radiologic studies, MRI, 05/12/2020 MRI reviewed. Patient with herniated pm1 discs present in L3-L4, L4-L5, and L5-S!, . 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 pm1 20:51 Counseling: I had a detailed discussion with the patient and/or guardian regarding: the pm1 historical points, exam findings, and any diagnostic results supporting the discharge/admit diagnosis, the need for outpatient follow up, a neurosurgeon, a orthopedic surgeon, a paint supervisor, to return to the emergency department if symptoms worsen or persist or if there are any questions or concerns that arise at home. Administered Medications: 19:53 Drug: Lidoderm 5 % (700 mg/patch) 1 patches {Note: used lidocaine 4% patch, 5% not jv1 available. Provider Calvin aware.} Route: Topical; Site: affected area; 20:50 Follow up: Response: No adverse reaction; Pain is decreased jv1 19:53 Drug: [place] (HYDROcodone-acetaminophen) 10 mg-325 mg 1 tabs {Note: rass calm-0.} Route: jv1 PO; 20:50 Follow up: Response: No adverse reaction; Pain is decreased jv1 Disposition: 08/04 18:59 Co-signature as Attending Physician, Chadwick Paul MD I agree with the assessment and rn plan of care. Disposition: 08/03/20 20:52 Discharged to Home. Impression: Lumbago with sciatica, Pain in left shoulder. - Condition is Stable. - Discharge Instructions: Back Pain, Adult, Shoulder Pain. - Prescriptions for Lidoderm 5 % Topical adhesive patch,medicated - apply 1 patch by TRANSDERMAL route once daily As needed 12 hours on and 12 hours off in a 24 hour period; 15 Transdermal Patch. Tylenol- Codeine #3 300-30 mg Oral Tablet - take 2 tablets by ORAL route every 4-6 hours As needed; 20 tablet. - Medication Reconciliation Form, Thank You Letter, Antibiotic Education, Prescription Opioid Use form. - Follow up: Emergency Department; When: As needed; Reason: Worsening of condition. Follow up: Private Physician; When: 2 - 3 days; Reason: Recheck today's complaints, Continuance of care, Re-evaluation by your physician. - Problem is new. - Symptoms have improved. Signatures: Ander Swain RN RN em Nieto, Roman, MD MD rn Marinas, Patrick, MIXER OPERATOR RAW SALT MIXER OPERATOR RAW SALT pm1 Zuleyma Luo RN RN ea Vicente, Joyce, RN RN jv1 Corrections: (The following items were deleted from the chart) 08/03 21:32 20:52 08/03/2020 20:52 Discharged to Home. Impression: Lumbago with sciatica; Pain in ea left shoulder. Condition is Stable. Forms are Medication Reconciliation Form, Thank You Letter, Antibiotic Education, Prescription Opioid Use. Follow up: Emergency Department; When: As needed; Reason: Worsening of condition. Follow up: Private Physician; When: 2 - 3 days; Reason: Recheck today's complaints, Continuance of care, Re-evaluation by your physician. Problem is new. Symptoms have improved. pm1
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
[2020-08-03 21:46] VITALS: O2SAT 99
[2020-08-03 21:49] VITALS: BP 115/73; TEMP 98.2
== END 2020-08-03 21:32 | disposition home or self-care (01) ==
LOC: ER 16:28
DX: M54.42 Lumbago with sciatica, left side (principal); M25.512 Pain in left shoulder; Z88.6 Allergy status to analgesic agent; Z88.8 Allergy status to other drugs, medicaments and biological substances
CPT/HCPCS: 99283

== ENCOUNTER 2020-10-31 10:24 | Emergency (ER) | payer SELFPAY ==
--- OUTSIDE RECORDS SUMMARY | 2020-10-31 10:28 | XMS REPORT | Continuity of Care Document ---
:1965 Author Organization [facility] t Address [address] [place] [address] Care Team Providers Name Role Phone Unavailable [...] for for 0-04 da malignant Malignant 00:00: [facility] jake neoplasm Neoplasm 00 Group of [...] Date Stop Date Source Light Tobacco Smoker [facility] Medications Ordered Filled Start [...] Source BP Diastolic 2019-03-07 00:00:00 68 [facility]Hg[facility] Height 2019-03-07 00:00:00 63 [in_i] [facility] BMI (Body Mass 2019-03-07 00:00:00 26.8 kg/m2 [facility]) Group BP Systolic 2019-03-07 00:00:00 123 mm[Hg] [facility] Body Weight 2019-03-07 00:00:00 151.3 [lb_av] [facility] BP Diastolic 2019-02-20 00:00:00 76 mm[Hg] [facility] Height 2019-02-20 00:00:00 63 [in_i] [facility] BMI (Body Mass 2019-02-20 00:00:00 26.4 kg/m2 [facility] Index) Group BP Systolic 2019-02-20 00:00:00 113 mm[Hg] [facility] Body Weight 2019-02-20 00:00:00 149.1 [lb_av] [facility] Procedures Procedure Date / Time Performing Clinician Source Performed MAMMO, screening, 2019-02-20 00:00:00 [facility] bilateral Group Appendectomy 2017-11-28 00:00:00 [facility] Anesth Tubal Ligation 1997-04-03 00:00:00 [facility] Plan of Care Planned Activity Planned Date Details Comments Source Diagnostic Test 2019-03-07 biopsy, cervical [facility] Pending 00:00:00 [code = biopsy, Group cervical] Diagnostic Test 2019-03-07 test, [facility] Pending 00:00:00 urine [code = Group test, urine] Diagnostic Test 2019-03-07 urinalysis, [facility] Pending 00:00:00 dipstick [code = Group urinalysis, dipstick] Encounters Start End Encounter Admission Attending Care Care Encounter Source Date/Time Date/Time Type Type Clinicians Facility Department ID 2019-03-07 2019-03-07 Mony [place] - [id number] [place] 00:00:00 00:00:[facility] [facility]: [address], [place] [address] , Ph. [phone] 2019-02-20 2019-02-20 Mony [place] - [id number] [place] 00:00:00 00:00:00 [facility]: [address], [place] [address] , Ph. [phone] Results Test Description Test Time Test Comments Results Result Comments Source test, urine 2019-03-07 11:31:32 Test Item Value Reference Range Interpretation Comme nts Test (test code = Test) negative [facility] Group[facility] macro (dipstick) panel - [id number] 11:15:48 Test Item Value Reference Range Interpretation Comments Leukocytes (test code = Leukocytes) Negative Nitrite (test code = Nitrite) negative Urobilinogen (test code = 1 Urobilinogen) Protein (test code = Protein) Negative pH (test code = pH) 6.0 Blood (test code = Blood) Negative Specific [place] (test code = 1.025 Specific [place]) Ketone (test code = Ketone) Negative Bilirubin (test code = Bilirubin) Negative Glucose (test code = Glucose) Negative Appearance (test code = Appearance) Clear Color (test code = Color) Yellow [facility] GroupUrinalysis macro (dipstick) panel - [id number] 11:15:48 Test Item Value Reference Range Interpretation Comments Leukocytes (test code = Leukocytes) Negative Nitrite (test code = Nitrite) negative Urobilinogen (test code = 1 Urobilinogen) Protein (test code = Protein) Negative pH (test code = pH) 6.0 Blood (test code = Blood) Negative Specific [place] (test code = 1.025 Specific [place]) Ketone (test code = Ketone) Negative Bilirubin (test code = Bilirubin) Negative Glucose (test code = Glucose) Negative Appearance (test code = Appearance) Clear Color (test code = Color) Yellow [facility] [Identifier] in Cervix by Cyto stain.thin [id number] 02:48:00ResultsBrentwood Behavioral Healthcare [facility]
--- NOTE | 2020-10-31 11:23 | ER ---
Nurse's Notes [facility] Name: Joanna Benavidez Age: 55 yrs Sex: Female : 1965 Arrival Date: 10/31/2020 Time: 10:25 Bed 12 Private MD: Diagnosis: Radiculopathy, lumbar region;Low back pain Presentation: 10/31 11:11 Chief complaint: Patient states: low back pain more on left side radiates down left iw leg, has been seen here before, has hx of herniated disc in neck and back, has previous work injury , got worse two weeks ago. Coronavirus screen: At this time, the client does not indicate any symptoms associated with coronavirus-19. Ebola Screen: Patient negative for fever greater than or equal to 101.5 degrees Fahrenheit, and additional compatible Ebola Virus Disease symptoms Patient denies exposure to infectious person. Patient denies travel to an Ebola-affected area in the 21 days before illness onset. No symptoms or risks identified at this time. Initial Sepsis Screen: Does the patient meet any 2 criteria? No. Patient's initial sepsis screen is negative. Does the patient have a suspected source of infection? No. Patient's initial sepsis screen is negative. Risk Assessment: Do you want to hurt yourself or someone else? Patient reports no desire to harm self or others. Onset of symptoms was October 15, 2020. 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 Denies injuries from another. Nutritional sv screening: No deficits noted. Tuberculosis screening: No symptoms or risk factors identified. Fall Risk None identified. Assessment: 11:31 General: Appears in no apparent distress. uncomfortable, Behavior is calm, cooperative, sv appropriate for age. Pain: Complains of pain in left low back Pain radiates to left leg Pain currently is 9 out of 10 on a pain scale. Neuro: Level of Consciousness is awake, alert, obeys commands, Oriented to person, place, time, situation, Moves all extremities. Full function Gait is steady. Respiratory: Respiratory effort is even, unlabored, Respiratory pattern is regular, symmetrical. 11:32 Reassessment: Pt up for discharge but waiting IM shot time. sv 11:49 Reassessment: Patient appears in no apparent distress at this time. Patient and/or sv family updated on plan of care and expected duration. Pain level reassessed. Patient is alert, oriented x 3, equal unlabored respirations, skin warm/dry/pink. Vital Signs: 11:11 BP 96 / 79; Pulse 71; Resp 16; Temp 97.6; Pulse Ox 100% on R/A; Pain 9/10; iw ED Course: 10:25 Patient arrived in ED. rg4 11:13 Triage completed. iw 11:13 Arm band placed on. iw 11:16 Pablo Flores PA is PHCP. jr8 11:16 Chadwick Paul MD is Attending Physician. jr8 11:31 Trini Cid RN is Primary Nurse. sv 11:32 Patient has correct armband on for positive identification. sv 11:32 No provider procedures requiring assistance completed. Patient did not have IV access sv during this emergency room visit. Administered Medications: 11:31 Drug: morphine 4 mg {Note: rass1.} Route: IM; Site: left deltoid; sv 11:48 Follow up: Response: No adverse reaction; RASS: Alert and Calm (0) jr8 11:31 Drug: Ondansetron 4 mg Route: PO; sv 11:48 Follow up: Response: No adverse reaction [facility] Outcome: 11:22 Discharge ordered by . jr8 11:47 Patient left the ED. jr8 11:49 Discharged to home ambulatory, with friend. sv 11:49 Condition: stable 11:49 Discharge instructions given to patient, Instructed on discharge instructions, follow up and referral plans. no drinking with medication, no driving heavy equipment, medication usage, Demonstrated understanding of instructions, follow-up care, medications, Prescriptions given X 3. Signatures: Trini Cid RN RN Kelly Santiago RN RN Pablo Flores PA PA jr8 Yelena Zimmer rg4
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
[2020-10-31] MEDS ORDERED: MORPHINE 4 MG/ML SYR ONE (11:50)
[2020-10-31] MEDS ORDERED: ONDANSETRON 4 MG (ODT) TAB ONE (11:51)
[2020-10-31 12:03] VITALS: BP 96/79; TEMP 97.6; O2SAT 100
== END 2020-10-31 11:47 | disposition home or self-care (01) ==
LOC: ER 10:24
DX: M54.16 Radiculopathy, lumbar region (principal); Z88.6 Allergy status to analgesic agent
CPT/HCPCS: 96372; 99283

== ENCOUNTER 2020-11-30 16:01 | Emergency (ER) | payer SELFPAY ==
--- OUTSIDE RECORDS SUMMARY | 2020-11-30 16:04 | XMS REPORT | Continuity of Care Document ---
:1965 Author Organization [facility] t Address [address] [place] [address] Care Team Providers Name Role Phone Unavailable [...] for for 0-04 da malignant Malignant 00:00: [facility] jake neoplasm Neoplasm 00 Group of [...] Date Stop Date Source Light Tobacco Smoker [facility] Medications Ordered Filled Start [...] Source BP Diastolic 2019-03-07 00:00:00 68 mm[Hg] [facility] Height 2019-03-07 00:00:00 63 [in_i] [facility] BMI (Body Mass 2019-03-07 00:00:00 26.8 kg/m2 [facility] Index) Group BP Systolic 2019-03-07 00:00:00 123 mm[Hg] [facility] Body Weight 2019-03-07 00:00:00 151.3 [lb_av] [facility] BP Diastolic 2019-02-20 00:00:00 76 mm[Hg] [facility] Height 2019-02-20 00:00:00 63 [in_i] [facility] BMI (Body Mass 2019-02-20 00:00:00 26.4 kg/m2 [facility]) Group BP Systolic 2019-02-20 00:00:00 113 mm[Hg] [facility] Body Weight 2019-02-20 00:00:00 149.1 [lb_av] [facility] Procedures Procedure Date / Time Performing Clinician Source Performed MAMMO, screening, 2019-02-20 00:00:00 [facility] bilateral Group Appendectomy 2017-11-28 00:00:00 [facility] Anesth Tubal Ligation 1997-04-03 00:00:00 [facility] Plan of Care Planned Activity Planned Date Details Comments Source Diagnostic Test 2019-03-07 biopsy, cervical [facility] Pending 00:00:00 [code = biopsy, Group cervical] Diagnostic Test 2019-03-07 test, [facility] Pending 00:00:00 urine [code = Group test, urine] Diagnostic Test 2019-03-07 urinalysis, [facility] Pending 00:00:00 dipstick [code = Group urinalysis, dipstick] Encounters Start End Encounter Admission Attending Care Care Encounter Source Date/Time Date/Time Type Type Clinicians Facility Department ID 2019-03-07 2019-03-07 Mony [place] - [id number] 5 [place] 00:00:00 00:00:[facility] [place] [place] [facility]: [address], [place] [address] , Ph. [phone] 2019-02-20 2019-02-20 Mony [place] - [id number] [place] 00:00:00 00:00:00 [facility]: [address], [place] [address] , Ph. [phone] Results Test Description Test Time Test Comments Results Result Comments Source test, urine 2019-03-07 11:31:32 Test Item Value Reference Range Interpretation Comme nts Test (test code = Test) negative [facility] GroupUrinalysis macro (dipstick) panel - [id number] 11:15:48 Test Item Value Reference Range Interpretation Comments Leukocytes (test code = Leukocytes) Negative Nitrite (test code = Nitrite) negative Urobilinogen (test code = 1 Urobilinogen) Protein (test code = Protein) Negative pH (test code = pH) 6.0 Blood (test code = Blood) Negative Specific [place] (test code = 1.025 Specific [place]) Ketone (test code = Ketone) Negative Bilirubin (test code = Bilirubin) Negative Glucose (test code = Glucose) Negative Appearance (test code = Appearance) Clear Color (test code = Color) Yellow [facility] GroupUrinalysis macro (dipstick) panel - [id number] 11:15:48 Test Item Value Reference Range Interpretation Comments Leukocytes (test code = Leukocytes) Negative Nitrite (test code = Nitrite) negative Urobilinogen (test code = 1 Urobilinogen) Protein (test code = Protein) Negative pH (test code = pH) 6.0 Blood (test code = Blood) Negative Specific [place] (test code = 1.025 Specific [place]) Ketone (test code = Ketone) Negative Bilirubin (test code = Bilirubin) Negative Glucose (test code = Glucose) Negative Appearance (test code = Appearance) Clear Color (test code = Color) Yellow [facility] Hospital[facility] observation [Identifier] in Cervix by Cyto stain.thin [id number] 02:48:00ResultsEncompass Health Rehabilitation Hospital
--- NOTE | 2020-11-30 17:47 | EDPHYS ---
Physician Documentation [facility] Name: Joanna Benavidez Age: 55 yrs Sex: Female : 1965 Arrival Date: 11/30/2020 Time: 16:03 Bed DX1 Private MD: ED Physician Maxime Stark HPI: 11/30 17:44 This 55 yrs old Female presents to ER via Ambulatory with complaints of Back kb Pain. 17:44 The patient presents with pain that is chronic. The symptoms are located in the kb herniated discs C4-5 and L5-S1. Onset: The symptoms/episode began/occurred 4 year(s) ago. The pain does not radiate. Associated signs and symptoms: The patient has no apparent associated signs or symptoms. The problem was sustained from a chronic condition. Modifying factors: The patient symptoms are alleviated by nothing, the patient symptoms are aggravated by any movement. Severity of symptoms: At their worst the symptoms were moderate, in the emergency department the symptoms are unchanged. The patient has experienced similar episodes in the past, chronically. The patient has not recently seen a physician. Pt reports she has chronic back pain from falling in 2018. States she took hydrocodone, flexeril and neurotin in the past for this pain. Came to this ER recently and was given tylenol #3 and flexeril. States she doesn't have insurance and the pain management dr wants $1000 so she came back here to get more medications. Historical: - Allergies: 17:12 Ibuprofen; hb 17:12 Rofecoxib; hb 17:12 Vioxx; hb - PMHx: 17:12 Ovarian cysts; uterine fibroids; hb ROS: 17:43 Constitutional: Negative for fever, chills, and weight loss. kb 17:43 Back: Positive for pain at rest, pain with movement. 17:43 All other systems are negative. Exam: 17:43 Constitutional: This is a well developed, well nourished patient who is awake, alert, kb and in no acute distress. Head/Face: Normocephalic, atraumatic. ENT: Moist Mucous membranes Respiratory: Respirations even and unlabored. No increased work of breathing, no retractions or nasal flaring. Skin: Warm, dry with normal turgor. Normal color. MS/ Extremity: Pulses equal, no cyanosis. Neurovascular intact. Full, normal range of motion. Neuro: Awake and alert, GCS 15, oriented to person, place, time, and situation. Moves all extremities. Normal gait. Psych: Awake, alert, with orientation to person, place and time. Behavior, mood, and affect are within normal limits. Vital Signs: 17:11 BP 129 / 87; Pulse 95; Resp 16; Temp 97.2; Pulse Ox 99% on R/A; Pain 10/10; hb MDM: 17:22 Patient medically screened. kb 17:43 Data reviewed: vital signs, nurses notes. Data interpreted: Pulse oximetry: on room air kb is 99 %. Interpretation: normal. 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 Administered Medications: 17:54 Drug: Latimer (HYDROcodone-acetaminophen) 10 mg-325 mg 1 tabs Route: PO; iw 18:00 Follow up: Response: No adverse reaction iw Disposition: 12/01 07:55 Co-signature as Attending Physician, Maxime Stark MD I agree with the assessment and lai plan of care. Disposition Summary: 11/30/20 17:46 Discharge Ordered Location: Home kb Condition: Stable kb Diagnosis - Chronic pain syndrome - back kb Followup: kb - With: Emergency Department - When: As needed - Reason: Worsening of condition Followup: kb - With: Private Physician - When: 2 - 3 days - Reason: Recheck today's complaints, Continuance of care, Re-evaluation by your physician Discharge Instructions: - Discharge Summary Sheet kb - Chronic Back Pain kb Forms: - Medication Reconciliation Form kb - Thank You Letter kb - Antibiotic Education kb - Prescription Opioid Use kb Prescriptions: - Neurontin 300 mg Oral Capsule - take 1 capsule by ORAL route At bedtime; 20 capsule; Refills: 0, Product kb Selection Permitted - Cyclobenzaprine 10 mg Oral Tablet - take 1 tablet by ORAL route every 8 hours As needed; 21 tablet; Refills: 0, kb Product Selection Permitted Signatures: Dayanara Weinberg, WHITING MACHINE OPERATOR-C LUZ-Maxime Rome MD MD cha Williams, Irene, RN RN Tamara Louis, RN RN hb
--- NOTE | 2020-11-30 17:47 | ER ---
Nurse's Notes [facility] Name: Joanna Benavidez Age: 55 yrs Sex: Female : 1965 Arrival Date: 11/30/2020 Time: 16:03 Bed DX1 Private MD: Diagnosis: Chronic pain syndrome-back Presentation: 11/30 17:11 Chief complaint: Chronic back pain, unable to see pain management due to insurance hb change, today c/o back pain 01/10. Coronavirus screen: At this time, the client does not indicate any symptoms associated with coronavirus-19. Ebola Screen: No symptoms or risks identified at this time. Initial Sepsis Screen: Does the patient meet any 2 criteria? No. Patient's initial sepsis screen is negative. Does the patient have a suspected source of infection? No. Patient's initial sepsis screen is negative. Risk Assessment: Do you want to hurt yourself or someone else? Patient reports no desire to harm self or others. Onset of symptoms was November 30, 2020. 17:11 Method Of Arrival: Ambulatory hb 17:11 Acuity: FLORENTINO 4 hb Historical: - Allergies: 17:12 Ibuprofen; hb 17:12 Rofecoxib; hb 17:12 Vioxx; hb - PMHx: 17:12 Ovarian cysts; uterine fibroids; hb Vital Signs: 17:11 BP 129 / 87; Pulse 95; Resp 16; Temp 97.2; Pulse Ox 99% on R/A; Pain 10/10; hb ED Course: 16:03 Patient arrived in ED. am2 17:12 Triage completed. hb 17:12 Arm band placed on. hb 17:22 Dayanara Weinberg FNP-C is [facility]. kb 17:22 Maxime Stark MD is Attending Physician. kb 17:43 Kelly Santiago, RN is Primary Nurse. iw Administered Medications: 17:54 Drug: Dillon (HYDROcodone-acetaminophen) 10 mg-325 mg 1 tabs Route: PO; iw 18:00 Follow up: Response: No adverse reaction iw Outcome: 17:46 Discharge ordered by . kb 18:07 Patient left the ED. iw Signatures: Dayanara Weinberg FNP-C FNP-Kelly Meadows RN RN iw Tamara Mae RN RN Esquivel, Amira am2
[2020-11-30] MEDS ORDERED: HYDROCODONE/APAP 10/325 TAB ONE (18:12)
[2020-11-30 18:19] VITALS: BP 129/87; TEMP 97.2; O2SAT 99
== END 2020-11-30 18:07 | disposition home or self-care (01) ==
LOC: ER 16:01
DX: G89.4 Chronic pain syndrome (principal); Z88.6 Allergy status to analgesic agent; Z88.8 Allergy status to other drugs, medicaments and biological substances
CPT/HCPCS: 99282

== ENCOUNTER 2021-04-19 08:56 | Emergency (ER) | payer BC, SELFPAY ==
--- OUTSIDE RECORDS SUMMARY | 2021-04-19 09:00 | XMS REPORT | Continuity of Care Document ---
:1965 Author Organization [facility] Address [facility] [address] [place] [id number] Care Team Providers Name Role Phone SHYANNE Attending Clinician Unavailable G_Pappas Attending Clinician Unavailable SHYANNE Admitting Clinician Unavailable G_Pappas Admitting Clinician Unavailable Payers Payer Name Policy Type Policy Number Effective Date Expiration Date [place] bean [place] [id number] 2017 00:00:00 [place] Problems Condition Condition Condition Status Onset Resolution [...] for for 0-04 da malignant Malignant 00:00: [facility] neoplasm Neoplasm 00 Group of breast of [...] Date Stop Date Source Light Tobacco Smoker [facility] Medications Ordered Filled Start [...] Source BP Diastolic 2019-03-07 00:00:00 68 [facility]Hg[facility] Height 2019-03-07 00:00:00 63 [in_i[facility] BMI (Body Mass 2019-03-07 00:00:00 26.8 kg/m2 [facility] Medical Index) Group BP Systolic 2019-03-07 00:00:00 123 mm[Hg] [facility] Body Weight 2019-03-07 00:00:00 151.3 [lb_av] [facility] BP Diastolic 2019-02-20 00:00:00 76 mm[Hg[facility] Height 2019-02-20 00:00:00 63 [in_i] [facility] BMI (Body Mass 2019-02-20 00:00:00 26.4 kg/m2 [facility] Medical Index) Group BP Systolic 2019-02-20 00:00:00 113 mm[Hg] [facility] Body Weight 2019-02-20 00:00:00 149.1 [lb_av] [facility] Procedures Procedure Date / Time Performing Clinician Source Performed MAMMO, screening, 2019-02-20 00:00:00 [facility] Appendectomy 2017-11-28 00:00:00 [facility] Anesth Tubal Ligation 1997-04-03 00:00:00 [facility] Plan of Care Planned Activity Planned Date Details Comments Source Diagnostic Test 2019-03-07 biopsy, cervical [facility] 00:00:00 [code = biopsy, Group cervical] Diagnostic Test 2019-03-07 test, [facility] 00:00:00 urine [code = Group test, urine] Diagnostic Test 2019-03-07 urinalysis, [facility] P[facility] 00:00:00 dipstick [code = Group urinalysis, dipstick] Encounters Start End Encounter Admission Attending Care Care Encounter Source Date/Time Date/Time Type Type Clinicians Facility Department ID 2021-02-24 2021-02-24 [facility] [id number] [place] 04:48:00 04:48:00 [facility] [facility] Outre h Program 2020-02-19 2020-02-19 Outpatient [facility] [id number] [place] 02:40:00 02:40:00 [facility] 2019-03-07 2019-03-07 oMny Chacon [facility] [place] - [id number] [place] 00:00:00 00:00:00 [facility] Thornton NP: [address] [place] [phone] , Ph. [phone] 2019-02-20 2019-02-20 Mony Chacon [facility] [place] - [id number] [place] 00:00:00 00:00:00 [facility] brandon Thornton NP: [address] [place] [phone] , Ph. [phone] Results Test Description Test Time Test Comments Results Result Comments Source test, urine 2019-03-07 11:31:32 Test Item Value Reference Range Interpretation Comme nts Test (test code = Test) negative [facility] (dipstick) panel - [id number] 11:15:48 Test Item Value Reference Range Interpretation Comments Leukocytes (test code = Leukocytes) Negative Nitrite (test code = Nitrite) negative Urobilinogen (test code = 1 Urobilinogen) Protein (test code = Protein) Negative pH (test code = pH) 6.0 Blood (test code = Blood) Negative Specific [place] (test code = 1.025 Specific [place]) Ketone (test code = Ketone) Negative Bilirubin (test code = Bilirubin) Negative Glucose (test code = Glucose) Negative Appearance (test code = Appearance) Clear Color (test code = Color) Yellow [facility] - [id number] 11:15:48 Test Item Value Reference Range Interpretation Comments Leukocytes (test code = Leukocytes) Negative Nitrite (test code = Nitrite) negative Urobilinogen (test code = 1 Urobilinogen) Protein (test code = Protein) Negative pH (test code = pH) 6.0 Blood (test code = Blood) Negative Specific [place] (test code = 1.025 Specific [place]) Ketone (test code = Ketone) Negative Bilirubin (test code = Bilirubin) Negative Glucose (test code = Glucose) Negative Appearance (test code = Appearance) Clear Color (test code = Color) Yellow [facility] [Identifier] in Cervix by Cyto stain.thin [id number] 02:48:00[facility]
[2021-04-19] MEDS ORDERED: MORPHINE 4 MG/ML SYR ONE (11:58)
[2021-04-19 12:01] LABS: SARS-COV-2 RT PCR POSITIVE (NEGATIVE)
--- NOTE | 2021-04-19 12:01 | ER ---
Nurse's Notes [facility] Name: Joanna Benavidez Age: 56 yrs Sex: Female : 1965 Arrival Date: 04/19/2021 Time: 08:58 Bed 28 Private MD: Diagnosis: SARS-associated coronavirus as the cause of diseases classified elsewhere Presentation: 04/19 09:04 Chief complaint: Patient states: back pain, sore throat, cough and ROSS ear pain x 4 vg1 days. Took home covid test and results were negative. Coronavirus screen: Vaccine status: Patient reports receiving the 2nd dose of the covid vaccine. Client denies travel out of the [place] in the last 14 days. Client presents with at least one sign or symptom that may indicate coronavirus-19. Standard/surgical mask placed on the client. The client reports previous COVID testing was negative. home test on 04/15/21. Ebola Screen: Patient negative for fever greater than or equal to 101.5 degrees Fahrenheit, and additional compatible Ebola Virus Disease symptoms. Initial Sepsis Screen: Does the patient meet any 2 criteria? No. Patient's initial sepsis screen is negative. Does the patient have a suspected source of infection? No. Patient's initial sepsis screen is negative. Risk Assessment: Do you want to hurt yourself or someone else? Patient reports no desire to harm self or others. Onset of symptoms was April 15, 2021. 09:04 Method Of Arrival: Ambulatory vg1 09:04 Acuity: FLORENTINO 4 vg1 Triage Assessment: 09:08 General: Appears in no apparent distress. uncomfortable, Behavior is calm, cooperative. vg1 Pain: Complains of pain in throat, left ear, right ear, back Pain currently is 9 out of 10 on a pain scale. EENT: Throat is reddened. 09:08 Respiratory: Airway is patent Respiratory effort is even, unlabored. 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 - Social history:: Smoking status: Reported history of juuling and/or vaping. Vital Signs: 09:04 BP 113 / 81; Pulse 108; Resp 17; Temp 97.6; Pulse Ox 100% ; Weight 68.04 kg; Height 5 vg1 ft. 2 in. (157.48 cm); Pain 9/10; 09:04 Body Mass Index 27.44 (68.04 kg, 157.48 cm) vg1 ED Course: 08:58 Patient arrived in ED. am2 09:08 Triage completed. vg1 09:08 Arm band placed on. vg1 09:14 [facility]. jr8 09:14 Maxime Stark MD is Attending Physician. jr8 09:18 Lorenza Yo, RN is Primary Nurse. 5 09:45 Strep Sent. 5 09:45 COVID-19/FLU A+B (Document "Date of Onset" if Symptomatic) Sent. 5 12:06 Notified Nurse Practitioner and/or Physician Leadite Man of a critical lab result(s), 1 Covid +. Administered Medications: 11:57 Drug: morphine 4 mg Route: IM; Site: left deltoid; [facility] Outcome: 12:00 Discharge ordered by . jr8 12:35 Patient left the ED. [facility] Signatures: Pablo Flores PA PA jr8 Amira Esquivel am2 Leida Zimmer RN RN 1 Fred Ward RN RN 1 Lorenza Yo, TATUM RN 5
--- NOTE | 2021-04-19 12:01 | EDPHYS ---
Physician Documentation [facility] Name: Joanna Benavidez Age: 56 yrs Sex: Female : 1965 Arrival Date: 04/19/2021 Time: 08:58 Bed 28 Private MD: ED Physician Maxime Stark HPI: 04/19 11:10 This 56 yrs old Female presents to ER via Ambulatory with complaints of ear jr8 problem, Sore Throat. 11:10 The patient has not experienced similar symptoms in the past. The patient has not jr8 recently seen a physician. This is a 56-year-old female patient that presented to the emergency room with complaints of bilateral ear pain, cough, sore throat for the past 4 days. Took a home COVID test which was negative but continues to have persistent symptoms.. 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 - Social history:: Smoking status: Reported history of juuling and/or vaping. ROS: 11:10 Constitutional: Negative for fever, chills, and weight loss, Eyes: Negative for injury, jr8 pain, redness, and discharge, Neck: Negative for injury, pain, and swelling, Cardiovascular: Negative for chest pain, palpitations, and edema, Abdomen/GI: Negative for abdominal pain, nausea, vomiting, diarrhea, and constipation, Back: Negative for injury and pain, MS/Extremity: Negative for injury and deformity, Skin: Negative for injury, rash, and discoloration, Neuro: Negative for headache, weakness, numbness, tingling, and seizure. 11:10 ENT: Positive for ear pain, sore throat. 11:10 Respiratory: Positive for cough, Negative for shortness of breath, sputum production, wheezing. Exam: 11:10 Constitutional: This is a well developed, well nourished patient who is awake, alert, jr8 and in no acute distress. Eyes: Pupils equal round and reactive to light, extra-ocular motions intact. Lids and lashes normal. Conjunctiva and sclera are non-icteric and not injected. Cornea within normal limits. Periorbital areas with no swelling, redness, or edema. ENT: Nares patent. No nasal discharge, no septal abnormalities noted. Tympanic membranes are normal and external auditory canals are clear. Oropharynx with redness. No swelling, or masses, exudates, or evidence of obstruction, uvula midline. Mucous membranes moist. Neck: Trachea midline, no thyromegaly or masses palpated, and no cervical lymphadenopathy. Supple, full range of motion without nuchal rigidity, or vertebral point tenderness. No Meningismus. Cardiovascular: Regular rate and rhythm with a normal S1 and S2. No gallops, murmurs, or rubs. Normal PMI, no JVD. No pulse deficits. Respiratory: Lungs have equal breath sounds bilaterally, clear to auscultation and percussion. No rales, rhonchi or wheezes noted. No increased work of breathing, no retractions or nasal flaring. Abdomen/GI: Soft, non-tender, with normal bowel sounds. No distension or tympany. No guarding or rebound. No evidence of tenderness throughout. Back: No spinal tenderness. No costovertebral tenderness. Full range of motion. Mild left-sided paraspinous muscle tenderness noted to the mid thoracic region Skin: Warm, dry with normal turgor. Normal color with no rashes, no lesions, and no evidence of cellulitis. MS/ Extremity: Pulses equal, no cyanosis. Neurovascular intact. Full, normal range of motion. Neuro: Awake and alert, GCS 15, oriented to person, place, time, and situation. Cranial nerves II-XII grossly intact. Motor strength 5/5 in all extremities. Sensory grossly intact. Cerebellar exam normal. Normal gait. Vital Signs: 09:04 BP 113 / 81; Pulse 108; Resp 17; Temp 97.6; Pulse Ox 100% ; Weight 68.04 kg; Height 5 vg1 ft. 2 in. (157.48 cm); Pain 9/10; 09:04 Body Mass Index 27.44 (68.04 kg, 157.48 cm) vg1 MDM: 09:14 Patient medically screened. lai 11:10 Data reviewed: vital signs, nurses notes, lab test result(s). Data interpreted: Pulse jr8 oximetry: on room air is 100 %. Interpretation: normal. Counseling: I had a detailed discussion with the patient and/or guardian regarding: the historical points, exam findings, and any diagnostic results supporting the discharge/admit diagnosis, lab results, the need for outpatient follow up, a family practitioner, to return to the emergency department if symptoms worsen or persist or if there are any questions or concerns that arise at home. 04/19 09:22 Order name: COVID-19/FLU A+B (Document "Date of Onset" if Symptomatic); Complete Time: jr8 12:11 04/19 09:22 Order name: Strep; Complete Time: 10:35 jr8 04/19 10:07 Order name: Throat Culture EDMS Administered Medications: 11:57 Drug: morphine 4 mg Route: IM; Site: left deltoid; jh5 Disposition: 04/20 07:38 Co-signature as Attending Physician, Maxime Stark MD I agree with the assessment and [facility] plan of care. Disposition Summary: 04/19/21 12:00 Discharge Ordered Location: Home jr8 Problem: new jr8 Symptoms: have improved jr8 Condition: Stable jr8 Diagnosis - SARS-associated coronavirus as the cause of diseases classified elsewhere jr8 Followup: jr8 - With: Private Physician - When: 1 week - Reason: Recheck today's complaints, Continuance of care, Re-evaluation by your physician Discharge Instructions: - Discharge Summary Sheet jr8 - COVID-19 jr8 - 10 Things You Can Do to Manage Your COVID-19 Symptoms at Home - [facility] jr8 - COVID-19: Quarantine vs. Isolation - [facility] jr8 Forms: - Medication Reconciliation Form jr8 - Thank You Letter jr8 - Antibiotic Education jr8 - Prescription Opioid Use jr8 Prescriptions: - promethazine-DM 6.25-15 mg/5 mL Oral syrup - take 5 milliliter by ORAL route every 4-6 hours as needed, not to exceed 30 mL jr8 in 24 hours; 100 milliliter; Refills: 0, Product Selection Permitted - Tessalon Perles 100 mg Oral Capsule - take 1 capsule by ORAL route every 8 hours As needed; 15 capsule; Refills: 0, jr8 Product Selection Permitted Signatures: Dispatcher [employer] Maxime Carney MD MD cha Roszak, Josh, PA PA jr8 Leida Zimmer RN RN vg1 Lorenza Yo RN RN jh5
[2021-04-19 12:40] VITALS: BP 113/81; TEMP 97.6; O2SAT 100
== END 2021-04-19 12:35 | disposition home or self-care (01) ==
LOC: ER 08:56
DX: U07.1 COVID-19 (principal); Z88.6 Allergy status to analgesic agent; Z88.8 Allergy status to other drugs, medicaments and biological substances
CPT/HCPCS: 87070; 87081; 0240U; 96372; 99283

== ENCOUNTER 2023-09-29 00:27 | Emergency (ER) | payer BC ==
--- OUTSIDE RECORDS SUMMARY | 2023-09-29 00:30 | XMS REPORT | Continuity of Care Document ---
Author Name Unknown Address [address] [place] [address] [facility] thconnect Address [address] [place] [address] Care Team Providers Care Vice President For Philanthropy Name Role Phone YNES Attending Clinician Unavailable SHYANNE Attending Clinician Unavailable Javier_P[place] Attending Clinician Unavailable YNES Admitting Clinician Unavailable SHYANNE Admitting Clinician Unavailable G_Pappas Admitting Clinician Unavailable Payers Payer Name Policy Type Policy Number Effective Date Expirati on Date Source [place] [id number] 2017 00:00:00 Problems Condition Name Condition Details Condition Category Status Onset Date Resolution Date Last Treatment Date Treating Clinician Comments Source Cervicovag inal cytology: Low grade squamous intraepith elial lesion Cervicovag inal Cytology: Low Grade Squamous Intraepith elial Lesion Problem Active 2018-04 00:00: 00 [facility] Polyp of cervix Polyp of Cervix Problem Active 2018-04 00:00: 00 [facility] Influenza- like symptoms Influenza- like Symptoms Problem Active 2018-04 00:00: 00 [facility] Diarrhea Diarrhea Problem Active 2018-04 00:00: 00 [facility] Recurrent urinary tract infection Recurrent Urinary Tract Infection Problem Active 3 00:00: 00 [facility] Migraine Migraine Problem Active 2017-04 0 00:00: 00 [facility] HPV - Human papillomav irus test positive HPV - Human Papillomav irus Test Positive Problem Active 2017-04 0 00:00: 00 [facility] Bacterial vaginosis Bacterial Vaginosis Problem Active 2018-1 0-04 00:00: 00 [facility] Gynecologi c examinatio n Gynecologi c Examinatio n Problem Active 2017-04 00:00: 00 [facility] Venereal disease screening Venereal Disease Screening Problem Active 2017-04 00:00: 00 [facility] Screening for malignant neoplasm of breast Screening for Malignant Neoplasm of Breast Problem Active 2017-04 00:00: 00 [facility] History of diabetes mellitus History of Diabetes Mellitus Problem Active 2017-04 00:00: 00 [facility] Candidiasi s of vagina Candidiasi s of Vagina Problem Active [facility] Candidiasi s of skin Candidiasi s of Skin Problem Active [facility] Diabetes mellitus Diabetes Mellitus Problem Active [facility] Pharyngiti s Pharyngiti s Problem Active [facility] Upper respirator y infection Upper Respirator y Infection Problem Active [facility] Sinusitis Sinusitis Problem Active [facility] Dental abscess Dental Abscess Problem Active [facility] Allergies, Adverse Reactions, Alerts Allergy Name Allergy Type Status Severity Reaction(s) Onset Date Inactive Date Treating Clinician Comments Source VIOXX Allergy to substanc e Active Rash [facility] Ibuprofe n Allergy to substanc e Active [facility] Social History Smoking Status Start Date Stop Date Source Light Tobacco Smoker [facility] Medications Ordered Medication Name Filled Medication Name Start Date Stop Date Current Medication? Ordering Clinician Indication Dosage Frequency Signature (SIG) Comments Components Source acetaminoph en 300 mg-codeine 30 mg tablet acetaminoph en 300 mg-codeine 30 mg tablet No acetaminop hen 300 mg-codeine 30 mg tablet [facility] diazepam 5 mg tablet diazepam 5 mg tablet No diazepam 5 mg tablet [facility] methylpredn isolone 4 mg tablets in a dose pack methylpredn isolone 4 mg tablets in a dose pack No methylpred nisolone 4 mg tablets in a dose pack [facility] metronidazo le 500 mg tablet Take 1 tablet every 8 hours by oral route. metronidazo le 500 mg tablet Take 1 tablet every 8 hours by oral route. No metronidaz ole 500 mg tablet Take 1 tablet every 8 hours by oral route. [facility] orphenadrin e citrate ER 100 mg tablet,exte nded release orphenadrin e citrate ER 100 mg tablet,exte nded release No orphenadri ne citrate ER 100 mg tablet,ext ended release [facility] oseltamivir 75 mg capsule Take 1 capsule twice a day by oral route for 5 days. oseltamivir 75 mg capsule Take 1 capsule twice a day by oral route for 5 days. No oseltamivi r 75 mg capsule Take 1 capsule twice a day by oral route for 5 days. [facility] tramadol tramadol No tramadol [facility] tramadol 37.5 mg-acetamin ophen 325 mg tablet tramadol 37.5 mg-acetamin ophen 325 mg tablet No tramadol 37.5 mg-acetami nophen 325 mg tablet [facility] Vital Signs Vital Name Observation Time Observation Value Comments S ource BP Diastolic 2019-03-07 00:00:00 68 mm[Hg] [facility] Height 2019-03-07 00:00:00 63 [in_i] [facility] BMI (Body Mass Index) 2019-03-07 00:00:00 26.8 kg/m2 [facility] BP Systolic 2019-03-07 00:00:00 123 mm[Hg] [facility] Body Weight 2019-03-07 00:00:00 151.3 [lb_av] M [facility] BP Diastolic 2019-02-20 00:00:00 76 mm[Hg] [facility] Height 2019-02-20 00:00:00 63 [in_i] [facility] BMI (Body Mass Index) 2019-02-20 00:00:00 26.4 kg/m2 [facility] BP Systolic 2019-02-20 00:00:00 113 mm[Hg] [facility] Body Weight 2019-02-20 00:00:00 149.1 [lb_av] M [facility] Procedures Procedure Date / Time Performed Performing Clinician Source MAMMO, screening, bilateral 2019-02-20 00:00:00 [facility] Appendectomy 2017-11-28 00:00:00 [facility] Anesth Tubal Ligation 1997-04-03 00:00:00 [facility] Plan of Care Planned Activity Planned Date Details Comments Source Diagnostic Test Pending 2019-03-07 00:00:00 biopsy, cervical [code = biopsy, cervical] [facility] Diagnostic Test Pending 2019-03-07 00:00:00 test, urine [code = test, urine] [facility] Diagnostic Test Pending 2019-03-07 00:00:00 urinalysis, dipstick [code = urinalysis, dipstick] [facility] Encounters Start Date/Time End Date/Time Encounter Type Admission Type Attending [facility] Care Department Encounter ID Source 2022-07-28 00:00:00 2022-07-28 00:00:00 Outpatient AMBREEN_JESICA MÉNDEZ [facility] [id number] [facility] 2021-02-24 04:48:00 2021-02-24 04:48:00 Outpatient NEESE_LUCAS [facility] [id number] [facility] 2020-02-19 02:40:00 2020-02-19 02:40:00 Outpatient G_Pappas [facility] 2019-03-07 00:00:00 2019-03-07 00:00:00 Mony Thornton NP: [address] [address] , Ph. [phone] [facility] [address] [facility] 2019-02-20 00:00:00 2019-02-20 00:00:00 JOHANNA Cho: [address] [address] , Ph. [phone] [facility] 9039 120 [facility] Results Test Description Test Time Test Comments Results Result Co mments Source [facility]dipstick[facility] panel - [id number] 11:15:48* Test Item Value Reference Range Interpretation Comme nts Leukocytes (test code = Leukocytes) Negative Nitrite (test code = Nitrite) negative Urobilinogen (test code = Urobilinogen) 1 Protein (test code = Protein) Negative pH (test code = pH) 6.0 Blood (test code = Blood) Negative Specific [place] (test code = Specific [place]) 1.025 Ketone (test code = Ketone) Negative Bilirubin (test code = Bilirubin) Negative Glucose (test code = Glucose) Negative Appearance (test code = Appearance) Clear Color (test code = Color) Yellow [facility]dipstick) panel - [id number] 11:15:48* Test Item Value Reference Range Interpretation Comme nts Leukocytes (test code = Leukocytes) Negative Nitrite (test code = Nitrite) negative Urobilinogen (test code = Urobilinogen) 1 Protein (test code = Protein) Negative pH (test code = pH) 6.0 Blood (test code = Blood) Negative Specific [place] (test code = Specific [place]) 1.025 Ketone (test code = Ketone) Negative Bilirubin (test code = Bilirubin) Negative Glucose (test code = Glucose) Negative Appearance (test code = Appearance) Clear Color (test code = Color) Yellow [facility] [Identifier] in Cervix by Cyto stain.thin [email or web address] 02:48:00[facility]
[2023-09-29 01:50] LABS: PT Prothrombin Time 12.9 SECONDS (9.4-12.5); Protime INR 1.18
[2023-09-29 02:08] LABS: Absolute Basophils 0.1 K/uL (0-0.5); Absolute Eosinophils 0.3 K/uL (0-0.5); Absolute Lymphocytes (CBC) 3.5 K/uL (0.7-4.9); Absolute Monocytes 0.7 K/uL (0.1-1.3); Absolute Neutrophil 5.1 K/uL (1.8-8.0); Basophils % 0.5 % (0-1.3); Hematocrit 45.1 % (36.0-45.0); Hemoglobin 15.5 g/dL (12.0-15.0); Lymphocytes % 36.4 % (15.3-44.8); MCH 31.9 pg (27.0-35.0); MCHC 34.4 g/dL (32.0-36.0); MCV 92.6 fL (80-100); MPV 8.3 fL (7.6-11.3); Monocytes % 7.3 % (3.3-12.3); Neutrophils % 52.8 % (41.7-73.7); Nucleated Red Blood Cells % 0.2 % (0-0); Platelets 241 thou/uL (152-406); RBC Red Blood Cell Count 4.87 M/uL (3.86-4.86); Red Cell Distribution Width 12.4 % (12.1-15.2)
[2023-09-29 02:09] LABS: ALT/SGPT 21 U/L (13-56); AST/SGOT 16 U/L (15-37); Albumin 4.3 g/dL (3.4-5.0); Albumin/Globulin Ratio 1.4 (1.1-1.8); Alkaline Phosphatase 98 U/L (45-117); Anion Gap 7.7 mEq/L (5.0-15.0); BUN Blood Urea Nitrogen 29 mg/dL (7-18); Bicarbonate 26 mEq/L (21-32); Bilirubin Direct 0.2 mg/dL (0-0.2); Bilirubin Indirect, Calculated 0.7 mg/dL (0.2-0.8); Bilirubin Total 0.9 mg/dL (0.2-1.0); Glomerular Filtration Rate 108 ml/min (=/>90); Glucose Level 99 mg/dL (74-106); Lipase 64 U/L (13-75); Magnesium 1.8 mg/dL (1.6-2.4); Potassium 3.7 mEq/L (3.5-5.1); Protein, Total 7.3 g/dL (6.4-8.2); Sodium Level 137 mEq/L (136-145)
[2023-09-29 02:10] LABS: Troponin High Sensitivity < 3.0 pg/mL (<58.9)
[2023-09-29] MEDS ORDERED: NA CHLORIDE 0.9% 1,000 ML ONE (04:49)
[2023-09-29 05:03] LABS: Specific Gravity 1.027 (1.005-1.030); Sqamous Epithelial <5 /HPF (None Seen); Urine Bacteria None Seen /HPF (<20); Urine Bilirubin NEGATIVE (Negative); Urine Blood Negative (Negative); Urine Clarity Clear (Clear); Urine Color Light-Yellow (Yellow); Urine Culture Reflex Order NOT NEEDED; Urine Glucose NEGATIVE (Negative); Urine Ketones NEGATIVE (Negative); Urine Micro Reflex YN NO BILL MICROSCOPIC; Urine Mucus Slight /HPF (None Seen); Urine Nitrite NEGATIVE (Negative); Urine Protein NEGATIVE (Negative); Urine RBC <5 /HPF (None Seen); Urine Urobilinogen Normal (Normal); Urine WBC <5 /HPF (<5)
--- NOTE | 2023-09-29 05:10 | EDPHYS ---
Physician Documentation [facility] Name: Joanna Hyatt Age: 58 yrs Sex: Female : 1965 Arrival Date: 09/29/2023 Time: 00:27 Bed 5 Private MD: ED Physician Maxime Stark HPI: 09/28 01:07 This 58 yrs old Female presents to ER via Unassigned with complaints of cp Abdominal Cramping, Vomiting, Dehydrated. 01:07 The patient presents with abdominal pain described as cramping. cp 01:07 Onset: The symptoms/episode began/occurred yesterday. Associated signs and symptoms: cp Pertinent positives: nausea, generalized cramping, Pertinent negatives: chest pain, constipation, fever, vomiting. The symptoms are described as crampy. Severity of pain: in the emergency department the pain is unchanged despite home interventions. Historical: - Allergies: 01:11 Ibuprofen; vc1 01:11 Rofecoxib; vc1 01:11 Vioxx; vc1 - PMHx: 01:11 Arthritis; 'Borderline Diabetic'; Ovarian cysts; uterine fibroids; vc1 - PSHx: 01:11 Appendectomy; Ligation of fallopian tube; vc1 - Immunization history:: Adult Immunizations Client reports receiving the 2nd dose of the Covid vaccine, Flu vaccine is not up to date. - Infectious Disease History:: Denies. - Social history:: Smoking status: Patient denies any tobacco usage or history of. ROS: 01:10 Constitutional: Positive for poor PO intake, Negative for fever, cp 01:10 Eyes: Negative for injury, pain, redness, and discharge, cp 01:10 ENT: Negative for ear pain, difficulty swallowing, difficulty handling secretions, 01:10 Cardiovascular: Negative for chest pain, 01:10 Respiratory: Negative for cough, shortness of breath, wheezing, 01:10 Abdomen/GI: Positive for abdominal pain, nausea, abdominal cramps, Negative for vomiting, diarrhea, abdominal distension, black/tarry stool, 01:10 Neuro: Negative for altered mental status, 01:10 All other systems are negative, Exam: 01:15 Constitutional: The patient appears in no acute distress, alert, awake, cp non-diaphoretic, non-toxic, well developed, well nourished, uncomfortable, 01:15 Head/Face: Normocephalic, atraumatic. cp 01:15 Eyes: Periorbital structures: appear normal, Conjunctiva: normal, no exudate, no injection, Sclera: no appreciated abnormality, Lids and lashes: appear normal, bilaterally, 01:15 ENT: External ear(s): are unremarkable, Nose: is normal, Mouth: Lips: moist, Oral mucosa: moist, Posterior pharynx: Airway: no evidence of obstruction, patent, 01:15 Chest/axilla: Inspection: normal, 01:15 Cardiovascular: Rate: normal, Rhythm: regular, Edema: is not appreciated, JVD: is not appreciated, 01:15 Respiratory: the patient does not display signs of respiratory distress, Respirations: normal, no use of accessory muscles, no retractions, labored breathing, is not present, Breath sounds: are clear throughout, no decreased breath sounds, no stridor, no wheezing, 01:15 Abdomen/GI: Inspection: abdomen appears normal, Bowel sounds: active, all quadrants, Palpation: soft, in all quadrants, moderate abdominal tenderness, in the epigastric area, rebound tenderness, is not appreciated, involuntary guarding, is not appreciated, 01:15 Back: CVA tenderness, is absent, 01:15 Neuro: Orientation: to person, place \T\ time. Mentation: is normal, Motor: moves all fours, strength is normal, 02:35 ECG was reviewed by the Attending Physician. cp Vital Signs: 00:45 BP 118 / 63; Pulse 73; Resp 16; Temp 97; Pulse Ox 99% ; Weight 60.78 kg; Height 5 ft. 2 vc1 in. ; 01:44 BP 117 / 70; Pulse 68; Resp 17 S; Pulse Ox 97% on R/A; jw7 02:30 BP 123 / 63; Pulse 67; Resp 16 S; Pulse Ox 98% on R/A; jw7 03:30 BP 134 / 80; Pulse 65; Resp 16 S; Pulse Ox 99% on R/A; jw7 04:37 BP 126 / 70; Pulse 70; Resp 19; Pulse Ox 100% on R/A; kd3 06:38 BP 120 / 74; Pulse 77; Resp 16; Pulse Ox 99% on R/A; kd3 00:45 Body Mass Index 24.51 (60.78 kg, 157.48 cm) vc1 MDM: 00:44 Patient medically screened. [facility] 05:08 Data reviewed: vital signs, nurses notes, lab test result(s), EKG, radiologic studies, cp CT scan, plain films, and as a result, I will discharge patient. 05:08 Differential diagnosis: bowel obstruction, cholecystitis, Cholelithiasis, cp diverticulitis, pancreatitis, Peptic Ulcer Disease, Perf. Duodenal Ulcer, Perf. Gastric Ulcer. I considered the following discharge prescriptions or medication management in the emergency department Medications were administered in the Emergency Department. See MAR. Counseling: I had a detailed discussion with the patient and/or guardian regarding the historical points, exam findings, and any diagnostic results supporting the discharge/admit diagnosis, lab results, radiology results, the need for outpatient follow up, a family practitioner, to return to the emergency department if symptoms worsen or persist or if there are any questions or concerns that arise at home. 05:08 Independent interpretation of the following test(s) in the Emergency Department EKG: cp See my EKG interpretation above. Response to treatment: the patient's symptoms have markedly improved after treatment. 09/28 01:11 Order name: Basic Metabolic Panel; Complete Time: 03:33 09/28 03:33 Interpretation: Normal except: BUN 29; CRE 0.54. 09/28 01:11 Order name: CBC with Diff; Complete Time: 03:33 09/28 03:34 Interpretation: Normal except: RBC 4.87; HGB 15.5; HCT 45.1. 09/28 01:11 Order name: LFT's; Complete Time: 03:33 09/28 01:11 Order name: Magnesium; Complete Time: 03:33 09/28 01:11 Order name: PT-INR; Complete Time: 03:33 09/28 01:11 Order name: Troponin HS; Complete Time: 03:33 09/28 03:34 Interpretation: Reviewed. 09/28 01:11 Order name: Lipase; Complete Time: 03:33 09/28 03:48 Order name: Urinalysis W/Microscopic; Complete Time: 05:07 09/28 05:07 Interpretation: Reviewed. 09/28 01:11 Order name: XRAY Chest (1 view) 09/28 01:11 Order name: CT Abd/Pelvis - IV Contrast Only 09/28 01:11 Order name: Cardiac monitoring; Complete Time: 02:44 cp 09/28 01:11 Order name: EKG - Nurse/Tech; Complete Time: 02:44 cp 09/28 01:11 Order name: IV Saline Lock; Complete Time: 01:37 cp 09/28 01:11 Order name: Labs collected and sent; Complete Time: 01:37 cp 09/28 01:11 Order name: O2 Per Protocol; Complete Time: :37 cp 09/28 01:11 Order name: O2 Sat Monitoring; Complete Time: :37 cp 09/28 03:43 Order name: PO challenge; Complete Time: 03:56 cp EC:35 Rate is 57 beats/min. Rhythm is regular. NE interval is normal. QRS interval is normal. cp QT interval is normal. T waves are Inverted in lead aVR. Interpreted by me. Reviewed by me. Administered Medications: 04:54 Drug: NS 0.9% IV 1000 ml IV at 1 bolus Per protocol; 1000 mL bolus Route: IV; Rate: 1 kd3 bolus; Site: left forearm; 06:38 Follow up: IV Status: Completed infusion; IV Intake: 1000ml kd3 05:32 Not Given (Patient Refused): ativan1 mg IVP once jw7 Disposition Summary: 09/29/23 05:09 Discharge Ordered Notes: Location: Home cp Problem: new cp Symptoms: have improved cp Condition: Stable cp Diagnosis - Abdominal pain, unspecified cp - Nausea cp - Dehydration cp Followup: cp - With: Private Physician - When: 2 - 3 days - Reason: Recheck today's complaints Discharge Instructions: - Discharge Summary Sheet cp - Abdominal Pain, Adult cp - Dehydration, Adult cp - Nausea, Adult cp Forms: - Medication Reconciliation Form cp - Antibiotic Education cp - Prescription Opioid Use cp - Patient Portal Instructions cp - Leadership Thank You Letter cp - Work release form kd3 Prescriptions: - Zofran 4 mg Oral Tablet - take 1 tablet ORAL route every 12 hours As needed; 20 tablet; Refills: 0, cp Product Selection Permitted Signatures: Dispatcher [employer] Maxime Carney MD MD cha Page, Corey, PA PA cp Miladis Prabhakar RN RN kd3 Sultana Kim RN RN 1 Rosangela Herrera RN jw7 Corrections: (The following items were deleted from the chart) 01:11 01:11 BASIC METABOLIC PANEL+C.LAB.BRZ ordered. EDMS EDMS : 01:11 CBC+H.LAB.BRZ ordered. EDMS EDMS : 01:11 HEPATIC FUNCTION+C.LAB.BRZ ordered. EDMS EDMS : 01:11 MAGNESIUM+C.LAB.BRZ ordered. EDMS EDMS : 01:11 PROTIME (+INR)+COAG.LAB.BRZ ordered. EDMS EDMS : 01:11 Troponin High Sensitivity+C.LAB.BRZ ordered. EDMS EDMS : 01:11 LIPASE+C.LAB.BRZ ordered. EDMS EDMS : 01:11 Chest Single View+RAD.RAD.BRZ ordered. EDMS EDMS : 01:12 Abdomen Pelvis W Con+CT.RAD.BRZ ordered. EDMS EDMS 09/29 01:39 09/28 01:10 Abdomen/GI: Positive for abdominal pain, nausea and vomiting, abdominal cp cramps, Negative for diarrhea, cp
--- NOTE | 2023-09-29 05:10 | ER ---
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 I am vc1 afraid I am dehydrated. I am peeing very little and cramping in my hands, legs, and stomach. 00:45 Coronavirus screen: Vaccine status: Patient reports receiving the 2nd dose of the covid vc1 vaccine. Client denies travel out of the [place] in the last 14 days. At this time, the client does not indicate any symptoms associated with coronavirus-19. Ebola Screen: Patient negative for fever greater than or equal to 101.5 degrees Fahrenheit, and additional compatible Ebola Virus Disease symptoms Patient denies exposure to infectious person. Patient denies travel to an Ebola-affected area in the 21 days before illness onset. No symptoms or risks identified at this time. Initial Sepsis Screen: Does the patient meet any 2 criteria? No. Patient's initial sepsis screen is negative. Does the patient have a suspected source of infection? No. Patient's initial sepsis screen is negative. Risk Assessment: Do you want to hurt yourself or someone else? Patient reports no desire to harm self or others. Onset of symptoms was September 28, 2023. 00:45 Method Of Arrival: Ambulatory vc1 00:45 Acuity: FLORENTINO 3 vc1 Triage Assessment: 01:12 General: Appears in no apparent distress. uncomfortable, Behavior is calm, cooperative, vc1 appropriate for age. Pain: Complains of pain in abdomen, right arm, left arm, right leg and left leg. GI: Abdomen is flat, non-distended, Reports upper abdominal pain. Historical: - Allergies: 01:11 Ibuprofen; vc1 01:11 Rofecoxib; vc1 01:11 Vioxx; vc1 - PMHx: 01:11 Arthritis; 'Borderline Diabetic'; Ovarian cysts; uterine fibroids; vc1 - PSHx: 01:11 Appendectomy; Ligation of fallopian tube; vc1 - Immunization history:: Adult Immunizations Client reports receiving the 2nd dose of the Covid vaccine, Flu vaccine is not up to date. - Infectious Disease History:: Denies. - Social history:: Smoking status: Patient denies any tobacco usage or history of. Screenin:30 [facility] ED Fall Risk Assessment (Adult) History of falling in the last 3 months, jw7 including since admission No falls in past 3 months (0 pts) Confusion or Disorientation No (0 pts) Intoxicated or Sedated No (0 pts) Impaired Gait No (0 pts) Mobility Assist Device Used No (0 pt) Altered Elimination No (0 pt) Score/Fall Risk Level 0 - 2 = Low Risk Oriented to surroundings, Maintained a safe environment, Educated pt \T\ family on fall prevention, incl call for assistance when getting out of bed. Abuse screen: Denies threats or abuse. Denies injuries from another. Nutritional screening: No deficits noted. Tuberculosis screening: No symptoms or risk factors identified. Assessment: :30 General: Appears in no apparent distress. uncomfortable, Behavior is calm, cooperative, jw7 appropriate for age. Pain: Complains of pain in abdomen Pain does not radiate. Pain currently is 8 out of 10 on a pain scale. Quality of pain is described as pressure, Pain began suddenly, Is continuous. Neuro: Level of Consciousness is awake, alert, obeys commands, Oriented to person, place, time, situation, Appropriate for age. Cardiovascular: Heart tones S1 S2 present Capillary refill < 3 seconds Clubbing of nail beds is absent JVD is absent Patient's skin is warm and dry. Chest pain is denied. Respiratory: Airway is patent Trachea midline Respiratory effort is even, unlabored, Respiratory pattern is regular, symmetrical, Breath sounds are clear bilaterally. GI: Abdomen is flat, non-distended, Bowel sounds present X 4 quads. Abd is soft and non tender X 4 quads. GI: Reports lower abdominal pain, upper abdominal pain, constipation, cramping, nausea. : No deficits noted. No signs and/or symptoms were reported regarding the genitourinary system. EENT: No deficits noted. No signs and/or symptoms were reported regarding the EENT system. Derm: Skin is intact, is healthy with good turgor, Skin is dry, Skin is normal, Skin temperature is warm. Musculoskeletal: Circulation, motion, and sensation intact. Range of motion: intact in all extremities. 02:30 Reassessment: Patient appears in no apparent distress at this time. No changes from jw7 previously documented assessment. Patient and/or family updated on plan of care and expected duration. Pain level reassessed. Patient is alert, oriented x 3, equal unlabored respirations, skin warm/dry/pink. 03:30 Reassessment: Patient appears in no apparent distress at this time. No changes from jw7 previously documented assessment. Patient and/or family updated on plan of care and expected duration. Pain level reassessed. Patient is alert, oriented x 3, equal unlabored respirations, skin warm/dry/pink. 05:10 General: Discharge pending completion of IV Fluids. jw7 Vital Signs: 00:45 BP 118 / 63; Pulse 73; Resp 16; Temp 97; Pulse Ox 99% ; Weight 60.78 kg; Height 5 ft. 2 vc1 in. ; 01:44 BP 117 / 70; Pulse 68; Resp 17 S; Pulse Ox 97% on R/A; jw7 02:30 BP 123 / 63; Pulse 67; Resp 16 S; Pulse Ox 98% on R/A; jw7 03:30 BP 134 / 80; Pulse 65; Resp 16 S; Pulse Ox 99% on R/A; jw7 04:37 BP 126 / 70; Pulse 70; Resp 19; Pulse Ox 100% on R/A; kd3 06:38 BP 120 / 74; Pulse 77; Resp 16; Pulse Ox 99% on R/A; kd3 00:45 Body Mass Index 24.51 (60.78 kg, 157.48 cm) vc1 ED Course: 00:31 Patient arrived in ED. mr 00:37 Maxime Richard PA is PHCP. cp 00:37 Maxime Stark MD is Attending Physician. cp 01:11 Triage completed. vc1 01:12 Miladis Prabhakar, TATUM is Primary Nurse. kd3 01:12 Arm band placed on left wrist. vc1 01:30 Patient has correct armband on for positive identification. Bed in low position. Call jw7 light in reach. Side rails up X 1. Provided Education on: Use of Call Light. 01:43 Initial lab(s) drawn, by me, sent to lab. Inserted saline lock: 22 gauge in left jw7 forearm, using aseptic technique. Blood collected. 02:05 XRAY Chest (1 view) In Process Unspecified. EDMS 02:45 CT Abd/Pelvis - IV Contrast Only In Process Unspecified. EDMS 03:54 Urinalysis W/Microscopic Sent. kd3 06:37 No provider procedures requiring assistance completed. IV discontinued, intact, kd3 bleeding controlled, No redness/swelling at site. Pressure dressing applied. Administered Medications: 04:54 Drug: NS 0.9% IV 1000 ml IV at 1 bolus Per protocol; 1000 mL bolus Route: IV; Rate: 1 kd3 bolus; Site: left forearm; 06:38 Follow up: IV Status: Completed infusion; IV Intake: 1000ml kd3 05:32 Not Given (Patient Refused): ativan1 mg IVP once jw7 Medication: 04:37 VIS not applicable for this client. kd3 Intake: 06:38 IV: 1000ml; Total: 1000ml. kd3 Outcome: 05:09 Discharge ordered by . denis 06:37 Discharged to home ambulatory, kd3 06:37 Condition: stable 06:37 Discharge instructions given to patient, Instructed on discharge instructions, follow up and referral plans. medication usage, Demonstrated understanding of instructions, follow-up care, medications, Prescriptions given X 1, 06:39 Patient left the ED. kd3 Signatures: Dispatcher [employer] EDMS Dulce Palmer, Maxime Peterson PA PA cp Doucette, Kyli, RN RN kd3 Sultana Kim RN RN vc1 Rosangela Herrera RN RN jw7
[2023-09-29 06:51] VITALS: BP 120/74; TEMP 97; O2SAT 99
--- NOTE | 2023-09-30 14:08 | EKG ---
Test Date: 2023-09-29 Test Time: 02:27:59 [employer]: [facility] MEASUREMENT RESULTS: Intervals: Rate: 57 VA: 188 QRSD: 90 QT: 448 QTc: 436 Parkin: P: 67 VA: 188 QRS: 34 T: 41 INTERPRETIVE STATEMENTS: Sinus bradycardia Low voltage QRS Borderline ECG No previous ECG available for comparison Electronically Signed On 09-30-23 14:05:57 CDT by Daquan Bangura
--- NOTE | 2023-10-01 10:43 | RAD REPORT ---
EXAM DESCRIPTION: CT - Abdomen Pelvis W Contrast - 09/29/2023 7:08 am CLINICAL HISTORY: The patient is 58 years old and is Female; EPIGASTRIC PAIN TECHNIQUE: Axial computed tomography images of the abdomen and pelvis with intravenous contrast. S agittal and coronal reformatted images were created and reviewed. This CT exam was performed using one or more of the following dose reduction techniques: automated exposure control, adjustment of t he mA and/or kV according to patient size, and/or use of iterative reconstruction technique. COMPARISON: No relevant prior studies available. FINDINGS: Lung bases: Unremarkable. No mass. No consolidation. ABDOMEN: Liver: Unremarkable. No mass. Gallbladder and bile ducts: Unremarkable. No calcified stones. No ductal dilation. Pancreas: Unremarkable. No mass. No ductal dilation. Spleen: Unremarkable. No splenomegaly. Adrenals: Unremarkable. No mass. Kidneys and ureters: There are a couple 1 to 2 mm calcifications along the course of the lower le ft ureter. No hydronephrosis or perinephric/periureteral inflammatory changes. Stomach and bowel: Unremarkable. No obstruction. No mucosal thickening. PELVIS: Appendix: No findings to suggest acute appendicitis. Bladder: Unremarkable. Reproductive: Unremarkable as visualized. ABDOMEN and PELVIS: Intraperitoneal space: Unremarkable. No free air. No significant fluid collection. Bones/joints: No acute fracture. No dislocation. Soft tissues: Unremarkable. Vasculature: Unremarkable. No abdominal aortic aneurysm. Lymph nodes: Unremarkable. No enlarged lymph nodes. IMPRESSION: No acute finding in the abdomen/pelvis. There are a couple 1 to 2 mm calcifications tian g the course of the lower left ureter. No hydronephrosis or perinephric/periureteral inflammatory lai nges. Correlate with any concern for a ureteral stone. Electronically signed by: Avila Landin MD 09/29/2023 03:33 AM CDT 8 Due to temporary technical issues with the PACS/Fluency reporting system, reports are being signed by the in house radiologist without review as a courtesy to ensure prompt reporting. The interpreting r adiologist is fully responsible for the content of the report.
--- NOTE | 2023-10-01 12:06 | RAD REPORT ---
EXAM DESCRIPTION: RAD - Chest Single View - 09/29/2023 2:03 am CLINICAL HISTORY: Female, 58 years old, epigastric pain TECHNIQUE: 1 view COMPARISON: None. FINDINGS: SUPPORT DEVICES: None. LUNGS/PLEURA: No consolidation, pleural effusion, or pneumothorax. HEART/MEDIASTINUM: Normal size and configuration. OTHER: No acute osseous findings. IMPRESSION: No acute cardiopulmonary findings. Electronically signed by: Kristopher Goodman MD 09/29/2023 02:26 AM CDT RP Due to temporary technical issues with the PACS/Fluency reporting system, reports are being signed by the in house radiologist without review as a courtesy to ensure prompt reporting. The interpreting r adiologist is fully responsible for the content of the report.
== END 2023-09-29 06:39 | disposition home or self-care (01) ==
LOC: ER 00:27
DX: E86.0 Dehydration (principal); R11.0 Nausea; Z88.6 Allergy status to analgesic agent
CPT/HCPCS: 96361; 93005; 85025; 81001; 80048; 36415; 83735; 85610; 80076; 84484; 83690; 74177; 71045; 96360; 99284; Q9967; J7030